=== PATIENT | male | born 1980 | race Caucasian/White ===

== ENCOUNTER → 2016-09-09 | Outpatient (REF) | payer OTHER ==
[2016-09-09 11:24] LABS: MEAN CORPUSCULAR HEMOGLOBIN 29.4 pg (27.0-33.0); MEAN CORPUSCULAR HGB CONC 33.4 g/dl (32.0-36.5); MEAN CORPUSCULAR VOLUME 88.1 fl (80.0-96.0); RED CELL DISTRIBUTION WIDTH 13.2 % (11.5-14.5); WHITE BLOOD COUNT 14.5 K/mm3 (4.0-10.0)
[2016-09-09 11:44] LABS: ALBUMIN 3.3 GM/DL (3.2-5.2); ALBUMIN/GLOBULIN RATIO 0.79 (1.00-1.93); ALKALINE PHOSPHATASE 102 U/L (45-117); ALT/SGPT 29 U/L (12-78); ANION GAP 10 MEQ/L (8-16); AST/SGOT 16 U/L (15-37); BILIRUBIN,TOTAL 0.6 MG/DL (0.2-1.0); BLOOD UREA NITROGEN 18 MG/DL (7-18); CARBON DIOXIDE LEVEL 30 MEQ/L (21-32); CHLORIDE LEVEL 98 MEQ/L (98-107); CHOLESTEROL LEVEL 131 MG/DL (<200); CREATININE FOR GFR 1.33 MG/DL (0.70-1.30); GLOMERULAR FILTRATION RATE > 60.0 (>60); GLUCOSE, FASTING 173 MG/DL (70-105); POTASSIUM SERUM 4.1 MEQ/L (3.5-5.1); SODIUM LEVEL 138 MEQ/L (136-145); TOTAL PROTEIN 7.5 GM/DL (6.4-8.2); TRIGLYCERIDES LEVEL 135 MG/DL (<150)
== END ==
LOC: M SFHCLERA 08:50
PROVIDERS: ATTEND Physician Assistant
DX: I10 Essential (primary) hypertension (principal); E11.9 Type 2 diabetes mellitus without complications; E78.2 Mixed hyperlipidemia

== ENCOUNTER → 2016-11-29 | Outpatient (REF) | payer OTHER ==
[2016-11-29 12:44] LABS: ALBUMIN 3.3 GM/DL (3.2-5.2); ALBUMIN/GLOBULIN RATIO 0.77 (1.00-1.93); ALKALINE PHOSPHATASE 106 U/L (45-117); ALT/SGPT 38 U/L (12-78); ANION GAP 8 MEQ/L (8-16); AST/SGOT 24 U/L (15-37); BILIRUBIN,TOTAL 0.5 MG/DL (0.2-1.0); BLOOD UREA NITROGEN 18 MG/DL (7-18); CALCIUM LEVEL 9.1 MG/DL (8.5-10.1); CARBON DIOXIDE LEVEL 33 MEQ/L (21-32); CHLORIDE LEVEL 98 MEQ/L (98-107); CREATININE FOR GFR 1.37 MG/DL (0.70-1.30); GLOMERULAR FILTRATION RATE > 60.0 (>60); GLUCOSE, FASTING 136 MG/DL (70-105); POTASSIUM SERUM 3.2 MEQ/L (3.5-5.1); SODIUM LEVEL 139 MEQ/L (136-145); TOTAL PROTEIN 7.6 GM/DL (6.4-8.2)
== END ==
LOC: M SFHCLERA 08:10
PROVIDERS: ATTEND Physician Assistant
DX: E11.9 Type 2 diabetes mellitus without complications (principal)

== ENCOUNTER → 2016-12-06 | Outpatient (REF) | payer MEDICARE ==
[~2016-12-06] MED LIST: ATOR1TAB19 PO; CHLO50TA PO; CIPR500T89 PO; DULO1CAP3 PO; FLAG500T PO; GLIP10TA13 PO; LISI-538 PO; METF500T4 PO
[2016-12-06 17:36] LABS: BASO # 0.1 K/mm3 (0.0-0.2); BASO % 0.6 % (0.0-1.0); EOS # 0.6 K/mm3 (0.0-0.50); EOS % 3.8 % (0.0-3.0); LARGE UNSTAINED CELL # 0.4 K/mm3 (0.0-0.4); LARGE UNSTAINED CELL % 2.5 % (0.0-4.0); LYMPH # 3.3 K/mm3 (1.5-4.5); LYMPH % 23.2 % (24.0-44.0); MEAN CORPUSCULAR HEMOGLOBIN 28.9 pg (27.0-33.0); MEAN CORPUSCULAR HGB CONC 32.3 g/dl (32.0-36.5); MEAN CORPUSCULAR VOLUME 89.7 fl (80.0-96.0); MONO # 0.9 K/mm3 (0.0-0.8); MONO % 6.2 % (0.0-5.0); NEUTROPHILS # 9.2 K/mm3 (1.8-7.7); NEUTROPHILS % 63.7 % (36.0-66.0); PLATELET COUNT, AUTOMATED 693 k/mm3 (150-450); WHITE BLOOD COUNT 14.4 K/mm3 (4.0-10.0)
== END ==
LOC: M SFHCLERA 10:33
PROVIDERS: ATTEND Physician Assistant
DX: R55 Syncope and collapse (principal); Z79.84 Long term (current) use of oral hypoglycemic drugs; Z79.899 Other long term (current) drug therapy
CPT/HCPCS: 84443; 85025; G0463

== ENCOUNTER 2016-12-11 21:51 | Inpatient (IN) | payer MEDICARE ==
[~2016-12-11] VITALS: Ht 190.5 cm; Wt 187.0 kg
[2016-12-11] MEDS ORDERED: DULO1CAP3 PO (22:07)
[2016-12-11] MEDS ORDERED: LISI-538 PO (22:07)
[2016-12-11] MEDS ORDERED: METF500T4 PO (22:07)
[2016-12-11] MEDS ORDERED: GLIP10TA13 PO (22:07)
[2016-12-11] MEDS ORDERED: ATOR1TAB19 PO (22:07)
[2016-12-11] MEDS ORDERED: CHLO50TA PO (22:07)
[2016-12-11] MEDS ORDERED: MORPHINE 4 MG/ML 1ML SYRINGE IV ONE (23:30)
[2016-12-11] MEDS ORDERED: NS 1,000 ML IV ONE (23:30)
[2016-12-11] MEDS ORDERED: ONDANSETRON 4MG/2ML VIAL (J2405) IV ONE (23:30)
[2016-12-11 23:39] LABS: BASO # 0.1 K/mm3 (0.0-0.2); BASO % 0.3 % (0.0-1.0); EOS # 0.2 K/mm3 (0.0-0.50); EOS % 0.9 % (0.0-3.0); LARGE UNSTAINED CELL # 0.3 K/mm3 (0.0-0.4); LARGE UNSTAINED CELL % 1.1 % (0.0-4.0); LYMPH # 2.3 K/mm3 (1.5-4.5); LYMPH % 10.3 % (24.0-44.0); MEAN CORPUSCULAR HEMOGLOBIN 28.7 pg (27.0-33.0); MEAN CORPUSCULAR HGB CONC 32.6 g/dl (32.0-36.5); MONO # 0.7 K/mm3 (0.0-0.8); MONO % 2.9 % (0.0-5.0); NEUTROPHILS % 84.5 % (36.0-66.0); PLATELET COUNT, AUTOMATED 795 k/mm3 (150-450); RED CELL DISTRIBUTION WIDTH 13.2 % (11.5-14.5); WHITE BLOOD COUNT 22.5 K/mm3 (4.0-10.0)
[2016-12-11 23:43] LABS: INR 0.96
[2016-12-11 23:59] LABS: ALBUMIN 3.6 GM/DL (3.2-5.2); ALBUMIN/GLOBULIN RATIO 0.69 (1.00-1.93); BILIRUBIN,DIRECT 0.3 MG/DL (0.0-0.2); BILIRUBIN,TOTAL 0.8 MG/DL (0.2-1.0); CALCIUM LEVEL 9.9 MG/DL (8.5-10.1); CREATININE FOR GFR 1.44 MG/DL (0.70-1.30); GLOMERULAR FILTRATION RATE 58.8 (>60); POTASSIUM SERUM 3.7 MEQ/L (3.5-5.1); TOTAL PROTEIN 8.8 GM/DL (6.4-8.2)
[2016-12-12] MEDS ORDERED: ISOVUE-370 76% 100ML VIAL (Q9967) As Ordered ONE (01:01)
--- NOTE | 2016-12-12 02:20 | REPUSA ---
CLINICAL HISTORY: Abdominal pain. TECHNIQUE: Multiple axial, sagittal and coronal CT images were obtained through the abdomen and pelvi s after administration of intravenous contrast material. COMMENTS: The liver is moderately enlarged with decreased attenuation without mass or defect. There is no intra or extrahepatic biliary ductal dilatation. The spleen is normal. The gallbladder is within normal li mits. The pancreas is of normal contour and attenuation characteristics. There is no evidence of adre nal mass. Both kidneys demonstrate prompt and equal nephrograms. The kidneys are normal in size, shape and conf iguration. There is no evidence of renal or ureteral mass. No renal or ureteral calculi are identifie d. There is no hydroureter or hydronephrosis. No evidence for appendicitis. There is moderate large bowel toward thickening. Findings are more pro minent at the level of the hepatic flexure of the colon. Significant narrowing of the lumen of the co harpal is identified a distended with a surrounding nodularity and fat stranding. Mild apparent thickeni ng of the midsigmoid colon. Fluid-filled distended colon. Fluid-filled distended small bowel. Markedl y distended fluid-filled appendix. There is no evidence of abdominal ascites or lymphadenopathy. There is no evidence of intrinsic or extrinsic bladder mass. There is no pelvic ascites or lymphadeno jd. Images of the lung bases show no evidence of pleural or parenchymal mass. There are no pleural effusi ons. The bony structures are free of lytic or blastic lesions. Multilevel degenerative changes are seen in volving the thoracolumbar spine. Scattered calcifications are seen involving the aorta and major bran ches compatible with atherosclerosis. IMPRESSION: Multifocal thickening of the hepatic flexure of the colon and the sigmoid colon. Possible associated partial small bowel obstruction. Fluid-filled dilated bowel loops. Fluid-filled dilated colon. Associated ileus/enterocolitis is considered. No perforation or abscess formation. Fluid-filled distended appendix. Probably secondary to the passage of a retained fluid from the lumen of the colon including appendix. No surrounding inflammatory changes suggest acute appendicitis. Distended gallbladder suggestive of biliary stasis. No associated inflammatory changes of the wall of the gallbladder. Fat containing umbilical hernia without incarceration. Mild bilateral changes of sacroiliitis. Thank you for your kind referral of this patient.
[2016-12-12] MEDS ORDERED: METOCLOPRAMIDE INJ 10MG/2ML VIAL (J2765) IV PRN (02:45)
[2016-12-12] MEDS ORDERED: ACETAMINOPHEN TAB 650MG DOSE (2X325MG) PO PRN (02:45)
[2016-12-12] MEDS: KETOROLAC 30 MG/ML VIAL (J1885) IV PRN ×2 (03:19→20:08)
[2016-12-12] MEDS: ONDANSETRON 4MG/2ML VIAL (J2405) IV PRN ×2 (03:19→10:33)
[2016-12-12] MEDS: LR 1,000 ML IV SCH ×5 (03:20→20:13)
[2016-12-12 04:00] VITALS: BP 119/62
[2016-12-12] MEDS: LISINOPRIL 20 MG TAB PO SCH ×2 (05:34→20:09)
[2016-12-12] MEDS ORDERED: glipiZIDE XL 5 MG TABCR PO SCH ×2 (07:30)
--- NOTE | 2016-12-12 08:21 | REP ---
Chest x-ray: Two views. History: Abdominal pain. . Comparison study: No comparison study . Findings: The lungs are well inflated and free of infiltrate. The pleural angles are sharp. The heart size is normal. Pulmonary vasculature is not increased. No significant bony abnormality is seen. Impression: Negative chest x-ray. Signed by John Mcdonald MD 12/12/2016 08:13 A
[2016-12-12] MEDS ORDERED: DULoxetine 30 MG CAP (CYMBALTA) PO SCH ×2 (09:00)
[2016-12-12] MEDS ORDERED: LISINOPRIL 20 MG TAB PO SCH ×2 (09:00)
[2016-12-12] MEDS: DULoxetine 30 MG CAP (CYMBALTA) PO SCH (09:51)
[2016-12-12] MEDS: glipiZIDE XL 5 MG TABCR PO SCH (09:51)
[2016-12-12 09:54] LABS: MEAN CORPUSCULAR HEMOGLOBIN 29.3 pg (27.0-33.0); MEAN CORPUSCULAR HGB CONC 33.3 g/dl (32.0-36.5); RED CELL DISTRIBUTION WIDTH 13.3 % (11.5-14.5); WHITE BLOOD COUNT 21.4 K/mm3 (4.0-10.0)
[2016-12-12 10:07] LABS: CREATININE FOR GFR 1.42 MG/DL (0.70-1.30); GLOMERULAR FILTRATION RATE 59.7 (>60); POTASSIUM SERUM 3.4 MEQ/L (3.5-5.1)
[2016-12-12] MEDS: metroNIDAZOLE 500 MG in APPROPRIATE DILUENT 1 EA IV SCH ×2 (12:01→20:07)
[2016-12-12] MEDS: CIPROFLOXACIN 400 MG in APPROPRIATE DILUENT 1 EA IV SCH (12:01)
[2016-12-12 14:00] VITALS: BP 131/81
[2016-12-12 18:00] VITALS: BP 121/69
[2016-12-12] MEDS: ENOXAPARIN 40 MG/0.4 ML SYRINGE (J1650) SC SCH (20:07)
--- NOTE | 2016-12-12 21:03 | HPE ---
DATE OF ADMISSION: Admitting diagnosis is abdominal pain with possible intestinal obstruction. HISTORY OF PRESENT ILLNESS: The patient reports that he has had a sensation of abdominal fullness for 3 or 4 days. He felt constipated. He has taken some laxatives and has been having some diarrhea but the pain increased, and he developed some nausea and vomiting. He reported some abdominal cramping when the discomfort first began. He has not noticed any similar episodes previously. He had been eating well before the onset of his illness but has not felt hungry recently and has been limiting himself to some liquids. He has not noticed any rectal bleeding. He denies any fevers or chills. He presented to the emergency department at almost 10 o'clock in the evening on 12/11/2016. He was evaluated with some laboratory studies and had a CT scan of the abdomen and pelvis obtained. A chest x-ray was also done. The CT scan revealed mildly to moderately dilated fluid-filled loops of small bowel as well as moderate distension of the colon, which was also largely fluid-filled. There was no evidence of free air. There did not appear to be significant free fluid. He has a small umbilical hernia. Because of the abdominal pain with distension and fluid-filled loops of bowel, I was consulted. On my review, the CT scan suggests that there may be some narrowing in the sigmoid colon with a degree of obstruction in this area, although I do not see significant pericolonic inflammatory changes. The patient is being placed on observation for monitoring to see if this represents a simple ileus that will resolve or perhaps a more serious colonic obstruction. ALLERGIES: The patient reports an allergy to PENICILLINS. HOME MEDICATIONS INCLUDE: - atorvastatin 10 mg by mouth daily - glipizide 10 mg by mouth every morning - metformin 500 mg by mouth daily with his evening meal - lisinopril 20 mg by mouth daily - duloxetine 60 mg by mouth daily - chlorthalidone 50 mg by mouth daily MEDICAL HISTORY: Significant for; Morbid obesity. He has a history of diabetes mellitus, currently on some oral medications. He has a history of hypertension and hyperlipidemia. SURGICAL HISTORY: Negative. FAMILY HISTORY: Noncontributory. SOCIAL HISTORY: The patient is a nonsmoker and denies significant alcohol intake. He is currently unemployed. REVIEW OF SYSTEMS: He denies any history of chest pain or palpitations. He has no history of seizure or stroke or chronic severe headaches. He denies shortness of breath, cough or wheezing. He denies any melena or hematochezia. He has had no dysuria or hematuria. There is no history of deep vein thrombosis (DVT) or pulmonary embolus. The remainder of the review of systems is unremarkable. PHYSICAL EXAMINATION: Reveals a tall, quite obese man in mild discomfort. The sclerae are anicteric. Skin is warm and dry. Mucous membranes are moist. The neck is supple without mass or bruit. Heart: Exam shows a regular rate and rhythm. Lungs are clear to auscultation. The abdomen is quite obese and broad. He does have some bowel sounds present, though these seem somewhat diminished. There is no tympany to percussion. On palpation, he has some mild direct tenderness in the left upper quadrant and down the left side of the abdomen with some fullness consistent with his dilated fluid-filled bowel. He does have a small, soft, reducible hernia at the top of the umbilicus. This is about a 3 cm wide bulge and is nontender. Extremities show palpable pedal and radial pulses. His laboratory studies reveal a white count of 22.5 with a differential showing 84 neutrophils, 10 lymphocytes and 3 monocytes. His hemoglobin is 16 with a hematocrit of 49 and the platelet count is 795,000. Coagulation studies (Coags) are normal. His chemistry profile shows a sodium of 135, potassium 3.7, chloride 95, CO2 of 29, BUN of 15, creatinine 1.44, glucose of 190. His liver function tests are normal with the exception of slight elevation of alkaline phosphatase to 133. Total protein is 8.8 with an albumin of 3.6. Amylase and lipase are normal. His lactic acid is slightly elevated at 2.6. Urinalysis shows a specific gravity 1.024 with 1+ protein, 1+ bilirubin with 4 white cells and 1 red cell per high-power field. His CT result is noted in the history of the present illness. He had a chest x-ray that showed the lungs to be well inflated without evident infiltrate. 1. Possible colonic obstruction versus ileus. 2. Hypertension. 3. Morbid obesity. 4. Diabetes mellitus. 5. Hyperlipidemia. PLAN: The patient will be placed on observation status and monitored. It is unclear if the irregularity in the sigmoid colon actually represents an area of narrowing or if this just was an area of muscular contraction at the time of the scan. He does appear to have a large amount of fluid backed up in the colon and small bowel. He has had no prior abdominal surgery. The area in the sigmoid could represent an area of diverticulitis, although he denies any fevers or chills and the CT scan does not seem to show significant pericolonic inflammation in this area. However, diverticulitis would fit for his history of 4 days of a feeling of distension and fullness and constipation. The patient will be kept nothing by mouth and will receive IV maintenance hydration. We will repeat his labs in the morning. If there has been no improvement in his abdominal distension with passage of some of his intestinal liquid, then further evaluation or treatment will be undertaken. ERIBERTOD
[2016-12-12 22:00] VITALS: BP 115/65
[2016-12-13] MEDS: CIPROFLOXACIN 400 MG in APPROPRIATE DILUENT 1 EA IV SCH ×2 (00:17→11:43)
[2016-12-13 02:00] VITALS: BP 120/51
[2016-12-13] MEDS: LR 1,000 ML IV SCH (05:06)
[2016-12-13] MEDS: metroNIDAZOLE 500 MG in APPROPRIATE DILUENT 1 EA IV SCH ×3 (05:06→20:16)
[2016-12-13 06:00] VITALS: BP 126/67
[2016-12-13 06:45] LABS: BASO % 0.4 % (0.0-1.0); EOS # 0.9 K/mm3 (0.0-0.50); EOS % 6.6 % (0.0-3.0); LARGE UNSTAINED CELL # 0.3 K/mm3 (0.0-0.4); LARGE UNSTAINED CELL % 2.4 % (0.0-4.0); LYMPH # 2.4 K/mm3 (1.5-4.5); LYMPH % 18.5 % (24.0-44.0); MEAN CORPUSCULAR HEMOGLOBIN 28.8 pg (27.0-33.0); MEAN CORPUSCULAR HGB CONC 32.4 g/dl (32.0-36.5); MEAN CORPUSCULAR VOLUME 88.8 fl (80.0-96.0); MONO # 0.8 K/mm3 (0.0-0.8); MONO % 5.9 % (0.0-5.0); NEUTROPHILS # 8.7 K/mm3 (1.8-7.7); NEUTROPHILS % 66.3 % (36.0-66.0); PLATELET COUNT, AUTOMATED 569 k/mm3 (150-450); RED CELL DISTRIBUTION WIDTH 13.3 % (11.5-14.5); WHITE BLOOD COUNT 13.1 K/mm3 (4.0-10.0)
[2016-12-13 07:05] LABS: ALKALINE PHOSPHATASE 92 U/L (45-117); ALT/SGPT 23 U/L (12-78); AST/SGOT 14 U/L (15-37); BILIRUBIN,TOTAL 0.6 MG/DL (0.2-1.0); BLOOD UREA NITROGEN 18 MG/DL (7-18); CARBON DIOXIDE LEVEL 29 MEQ/L (21-32); CHLORIDE LEVEL 101 MEQ/L (98-107); CREATININE FOR GFR 1.18 MG/DL (0.70-1.30); GLOMERULAR FILTRATION RATE > 60.0 (>60); GLUCOSE, FASTING 149 MG/DL (70-105); POTASSIUM SERUM 2.8 MEQ/L (3.5-5.1)
[2016-12-13 07:20] LABS: ALBUMIN/GLOBULIN RATIO 0.63 (1.00-1.93); ANION GAP 9 MEQ/L (8-16); SODIUM LEVEL 139 MEQ/L (136-145)
[2016-12-13 07:25] LABS: ALBUMIN 2.5 GM/DL (3.2-5.2); CALCIUM LEVEL 7.8 MG/DL (8.5-10.1); TOTAL PROTEIN 6.5 GM/DL (6.4-8.2)
[2016-12-13] MEDS: DULoxetine 30 MG CAP (CYMBALTA) PO SCH (09:02)
[2016-12-13 10:00] VITALS: BP 134/65
[2016-12-13] MEDS: KCL 10MEQ IN 100ML SWI (KRUN) 10 MEQ in APPROPRIATE DILUENT 1 EA IV SCH ×8 (10:33→16:57)
[2016-12-13] MEDS: glipiZIDE XL 5 MG TABCR PO SCH (10:46)
[2016-12-13] MEDS: POTASSIUM CHLORIDE INJ 40 MEQ in LR 1,000 ML IV SCH ×2 (11:43→15:31)
--- NOTE | 2016-12-13 12:34 | REP ---
Supine abdomen two views: Comparison is a lumbosacral spine of 04/01/2016. There are dilated small bowel loops. There are moderately distended colonic loops. The appearance is nonspecific and could represent ileus or obstruction. There are no unusual calcifications. Skeletal structures and soft tissues are unremarkable. Signed by Joseph Dial MD 12/13/2016 12:26 P
[2016-12-13 14:00] VITALS: BP 140/80
[2016-12-13 18:00] VITALS: BP 123/58
[2016-12-13] MEDS: ENOXAPARIN 40 MG/0.4 ML SYRINGE (J1650) SC SCH (18:35)
[2016-12-13] MEDS: LISINOPRIL 20 MG TAB PO SCH (20:17)
[2016-12-13 22:00] VITALS: BP 132/74
[2016-12-14 02:00] VITALS: BP 129/73
[2016-12-14] MEDS: POTASSIUM CHLORIDE INJ 40 MEQ in LR 1,000 ML IV SCH ×3 (03:04→21:40)
[2016-12-14] MEDS: metroNIDAZOLE 500 MG in APPROPRIATE DILUENT 1 EA IV SCH ×3 (04:54→21:32)
[2016-12-14 06:00] VITALS: BP 110/61
[2016-12-14 06:59] LABS: BASO # 0.1 K/mm3 (0.0-0.2); BASO % 0.5 % (0.0-1.0); EOS # 0.8 K/mm3 (0.0-0.50); EOS % 6.7 % (0.0-3.0); LARGE UNSTAINED CELL # 0.3 K/mm3 (0.0-0.4); LARGE UNSTAINED CELL % 2.5 % (0.0-4.0); LYMPH # 2.6 K/mm3 (1.5-4.5); LYMPH % 20.7 % (24.0-44.0); MEAN CORPUSCULAR HGB CONC 32.8 g/dl (32.0-36.5); MEAN CORPUSCULAR VOLUME 88.6 fl (80.0-96.0); MONO # 0.9 K/mm3 (0.0-0.8); MONO % 6.9 % (0.0-5.0); NEUTROPHILS # 7.9 K/mm3 (1.8-7.7); NEUTROPHILS % 62.8 % (36.0-66.0); PLATELET COUNT, AUTOMATED 545 k/mm3 (150-450); RED CELL DISTRIBUTION WIDTH 13.2 % (11.5-14.5); WHITE BLOOD COUNT 12.6 K/mm3 (4.0-10.0)
[2016-12-14 07:19] LABS: ALBUMIN 2.5 GM/DL (3.2-5.2); ALBUMIN/GLOBULIN RATIO 0.71 (1.00-1.93); ALKALINE PHOSPHATASE 95 U/L (45-117); ALT/SGPT 24 U/L (12-78); ANION GAP 8 MEQ/L (8-16); AST/SGOT 16 U/L (15-37); BILIRUBIN,TOTAL 0.3 MG/DL (0.2-1.0); BLOOD UREA NITROGEN 13 MG/DL (7-18); CALCIUM LEVEL 7.9 MG/DL (8.5-10.1); CARBON DIOXIDE LEVEL 31 MEQ/L (21-32); CHLORIDE LEVEL 100 MEQ/L (98-107); CREATININE FOR GFR 1.09 MG/DL (0.70-1.30); GLOMERULAR FILTRATION RATE > 60.0 (>60); GLUCOSE, FASTING 99 MG/DL (70-105); POTASSIUM SERUM 3.3 MEQ/L (3.5-5.1); SODIUM LEVEL 139 MEQ/L (136-145)
[2016-12-14] MEDS: glipiZIDE XL 5 MG TABCR PO SCH (07:30)
[2016-12-14] MEDS: DULoxetine 30 MG CAP (CYMBALTA) PO SCH (08:39)
[2016-12-14] MEDS: CIPROFLOXACIN 400 MG in APPROPRIATE DILUENT 1 EA IV SCH ×4 (11:24→23:13)
[2016-12-14] MEDS: MIRALAX *UNIT DOSE* 17GM PACKET PO SCH ×2 (13:25→21:32)
[2016-12-14] MEDS: DOCUSATE SODIUM 100 MG CAP PO SCH ×2 (13:25→21:32)
[2016-12-14 14:00] VITALS: BP 135/62
[2016-12-14 18:00] VITALS: BP 132/72
[2016-12-14] MEDS: ENOXAPARIN 40 MG/0.4 ML SYRINGE (J1650) SC SCH (18:16)
[2016-12-14 21:32] VITALS: BP 117/92
[2016-12-14] MEDS: LISINOPRIL 20 MG TAB PO SCH (21:32)
[2016-12-14 22:00] VITALS: BP 117/92
[2016-12-15 02:00] VITALS: BP 118/57
[2016-12-15] MEDS: metroNIDAZOLE 500 MG in APPROPRIATE DILUENT 1 EA IV SCH ×2 (05:08→12:39)
[2016-12-15 06:00] VITALS: BP 109/59
[2016-12-15 06:39] LABS: ANION GAP 8 MEQ/L (8-16); BLOOD UREA NITROGEN 9 MG/DL (7-18); CARBON DIOXIDE LEVEL 30 MEQ/L (21-32); CHLORIDE LEVEL 101 MEQ/L (98-107); CREATININE FOR GFR 1.07 MG/DL (0.70-1.30); GLOMERULAR FILTRATION RATE > 60.0 (>60); GLUCOSE, FASTING 102 MG/DL (70-105); POTASSIUM SERUM 3.3 MEQ/L (3.5-5.1); SODIUM LEVEL 139 MEQ/L (136-145)
[2016-12-15] MEDS: DOCUSATE SODIUM 100 MG CAP PO SCH (08:16)
[2016-12-15] MEDS: glipiZIDE XL 5 MG TABCR PO SCH (08:16)
[2016-12-15] MEDS: DULoxetine 30 MG CAP (CYMBALTA) PO SCH (08:16)
[2016-12-15] MEDS: MIRALAX *UNIT DOSE* 17GM PACKET PO SCH (08:16)
[2016-12-15] MEDS: POTASSIUM CHLORIDE INJ 40 MEQ in LR 1,000 ML IV SCH ×2 (10:59→12:39)
[2016-12-15] MEDS: CIPROFLOXACIN 400 MG in APPROPRIATE DILUENT 1 EA IV SCH (11:00)
[2016-12-15] MEDS ORDERED: FLEET ENEMA PR ONE (13:00)
[2016-12-15 14:00] VITALS: BP 124/73
[2016-12-15] MEDS ORDERED: CIPR500T89 PO (17:07)
[2016-12-15] MEDS ORDERED: FLAG500T PO (17:07)
[2016-12-15] MEDS ORDERED: metroNIDAZOLE (FLAGYL) 500 MG TAB PO SCH (22:00)
[2016-12-15] MEDS ORDERED: CIPROFLOXACIN 500 MG TAB PO SCH (23:00)
== END 2016-12-15 17:49 | disposition home or self-care (01) | DRG 389 ==
LOC: M ED 22:45 → M MSPAV 12-12 04:26 → OBSVTOIN 12-12 19:35
PROVIDERS: ADMIT Surgery; ATTEND Surgery
DX: K56.60 Unspecified intestinal obstruction (principal); Z68.43 Body mass index [BMI] 50.0-59.9, adult; K57.92 Diverticulitis of intestine, part unspecified, without perforation or abscess without bleeding; E66.01 Morbid (severe) obesity due to excess calories; Z79.899 Other long term (current) drug therapy; E11.9 Type 2 diabetes mellitus without complications; I10 Essential (primary) hypertension; E78.5 Hyperlipidemia, unspecified

== ENCOUNTER → 2017-03-06 | Outpatient (REF) | payer MEDICARE ==
[~2017-03-06] MED LIST changes: +CIPR-249 PO; +CIPR500T19 PO; -CIPR500T89 PO; -GLIP10TA13 PO; +GLIP10TA6 PO; +GLIP1TAB51 PO; +MIRA3350 PO; +POLY33502 PO; +ZOFR20TA PO; +ZOFR4TAB3 PO
[2017-03-06 11:36] LABS: BASO # 0.1 K/mm3 (0.0-0.2); BASO % 0.9 % (0.0-1.0); EOS # 0.6 K/mm3 (0.0-0.50); EOS % 4.1 % (0.0-3.0); LARGE UNSTAINED CELL # 0.3 K/mm3 (0.0-0.4); LARGE UNSTAINED CELL % 1.8 % (0.0-4.0); LYMPH # 4.9 K/mm3 (1.5-4.5); LYMPH % 31.5 % (24.0-44.0); MEAN CORPUSCULAR HEMOGLOBIN 29.5 pg (27.0-33.0); MEAN CORPUSCULAR HGB CONC 32.9 g/dl (32.0-36.5); MEAN CORPUSCULAR VOLUME 89.7 fl (80.0-96.0); MONO # 0.9 K/mm3 (0.0-0.8); MONO % 6.3 % (0.0-5.0); NEUTROPHILS # 8.2 K/mm3 (1.8-7.7); NEUTROPHILS % 55.4 % (36.0-66.0); PLATELET COUNT, AUTOMATED 691 k/mm3 (150-450); RED CELL DISTRIBUTION WIDTH 13.3 % (11.5-14.5); WHITE BLOOD COUNT 14.9 K/mm3 (4.0-10.0)
== END ==
LOC: M SFHCLERA 08:52
PROVIDERS: ATTEND Physician Assistant
DX: R55 Syncope and collapse (principal)

== ENCOUNTER → 2017-03-07 | Outpatient (REF) | payer MEDICARE | LOC: M SFHCLERA 12:40 | PROVIDERS: ATTEND Physician Assistant | DX: E11.9 Type 2 diabetes mellitus without complications (principal); Z53.8 Procedure and treatment not carried out for other reasons ==

== ENCOUNTER 2017-03-22 22:23 | Inpatient (IN) | payer MEDICARE, MEDICAID ==
[~2017-03-22] VITALS: Ht 190.5 cm; Wt 175.4 kg
[~2017-03-22 22:23] MED LIST changes: -CIPR500T19 PO; -GLIP10TA6 PO; -MIRA3350 PO; -POLY33502 PO; -ZOFR20TA PO; -ZOFR4TAB3 PO
[2017-03-22] MEDS ORDERED: NS 1,000 ML IV ONE (23:15)
[2017-03-22] MEDS ORDERED: METOCLOPRAMIDE INJ 10MG/2ML VIAL (J2765) IV ONE (23:15)
[2017-03-22 23:28] LABS: BASO # 0.1 K/mm3 (0.0-0.2); BASO % 0.6 % (0.0-1.0); EOS # 0.3 K/mm3 (0.0-0.50); EOS % 1.3 % (0.0-3.0); LARGE UNSTAINED CELL # 0.1 K/mm3 (0.0-0.4); LARGE UNSTAINED CELL % 0.5 % (0.0-4.0); LYMPH # 2.4 K/mm3 (1.5-4.5); LYMPH % 9.5 % (24.0-44.0); MEAN CORPUSCULAR HEMOGLOBIN 29.2 pg (27.0-33.0); MEAN CORPUSCULAR HGB CONC 33.7 g/dl (32.0-36.5); MEAN CORPUSCULAR VOLUME 86.7 fl (80.0-96.0); MONO # 0.7 K/mm3 (0.0-0.8); NEUTROPHILS # 20.5 K/mm3 (1.8-7.7); NEUTROPHILS % 85.2 % (36.0-66.0); PLATELET COUNT, AUTOMATED 877 k/mm3 (150-450); RED CELL DISTRIBUTION WIDTH 13.1 % (11.5-14.5); WHITE BLOOD COUNT 24.1 K/mm3 (4.0-10.0)
[2017-03-23 00:01] LABS: ALBUMIN/GLOBULIN RATIO 0.75 (1.00-1.93); BILIRUBIN,DIRECT 0.2 MG/DL (0.0-0.2); BILIRUBIN,TOTAL 0.7 MG/DL (0.2-1.0); CALCIUM LEVEL 10.7 MG/DL (8.5-10.1); CREATININE FOR GFR 1.63 MG/DL (0.70-1.30); GLOMERULAR FILTRATION RATE 50.9 (>60); POTASSIUM SERUM 4.3 MEQ/L (3.5-5.1); TOTAL PROTEIN 9.3 GM/DL (6.4-8.2)
--- NOTE | 2017-03-23 01:30 | REPUSA ---
CLINICAL HISTORY: Abdominal pain. TECHNIQUE: Multiple axial, sagittal and coronal CT images were obtained through the abdomen and pelvi s without administration of oral or IV contrast material. COMMENTS: Comparison is made to the prior exam performed on 12/12/2016. Diffuse heterogeneous thickening of the mid aspect of the sigmoid colon with associated diverticulosi s. Diffusely distended fluid-filled small and large bowels. Diffuse thickening of the cecum and ascending colon. No bowel perforation or pneumatosis intestinalis. Distended fluid-filled appendix. Probably secondary to passage of retained fluid into its lumen from the colon. No associated inflammatory changes of the wall of the appendix. Fat containing umbilical hernia without incarceration. There is no intra or extrahepatic biliary ductal dilatation. The spleen is normal. The gallbladder is within normal limits. The pancreas is of normal contour and attenuation characteristics. There is no evidence of adrenal mass. Left renal lower calyceal group nonobstructing stones with largest measuring 4 mm. The kidneys are normal in size, shape and configuration. No right renal or ureteral calculi are ident ified. There is no hydroureter or hydronephrosis. There is no evidence for appendicitis. There is no evidence of abdominal ascites or lymphadenopathy. There is no evidence of intrinsic or extrinsic bladder mass. There is no pelvic ascites or lymphadeno jd. Images of the lung bases show no evidence of pleural or parenchymal mass. There are no pleural effusi ons. The bony structures are free of lytic or blastic lesions. IMPRESSION: Comparison is made to the prior exam performed on 12/12/2016. Diffuse heterogeneous thickening of the mid aspect of the sigmoid colon with associated diverticulosi s. This needs further evaluation to exclude a neoplastic pathology. Diffusely distended fluid-filled small and large bowels. Diffuse thickening of the cecum and ascending colon. Findings are suggestive of partial obstruction. Probably secondary to the significant narrowing of th e lumen at the level of the mid sigmoid colon. No bowel perforation or pneumatosis intestinalis. Distended fluid-filled appendix. Probably secondary to passage of retained fluid into its lumen from the colon. No associated inflammatory changes of the wall of the appendix. Fat containing umbilical hernia without incarceration. Thank you for your kind referral of this patient.
[2017-03-23] MEDS ORDERED: ONDANSETRON 4MG/2ML VIAL (J2405) IV ONE (03:00)
[2017-03-23] MEDS: NS 1,000 ML IV SCH ×2 (03:06→14:53)
[2017-03-23] MEDS ORDERED: GLUCAGON FOR INJ 1 MG VIAL (J1610) SC PRN (03:15)
[2017-03-23] MEDS ORDERED: DEXTROSE 50% 50 ML SYRINGE IV PRN (03:15)
[2017-03-23] MEDS ORDERED: GLUCOSE 4 GM CHEW TABLET PO PRN (03:15)
[2017-03-23] MEDS: MORPHINE 2 MG/ML 1ML SYRINGE IV PRN ×2 (03:24→15:10)
[2017-03-23 03:50] VITALS: BP 118/72
[2017-03-23] MEDS: metroNIDAZOLE 500 MG in APPROPRIATE DILUENT 1 EA IV SCH ×3 (04:16→20:32)
[2017-03-23] MEDS: CIPROFLOXACIN 400 MG in APPROPRIATE DILUENT 1 EA IV SCH ×2 (05:59→17:40)
[2017-03-23 06:00] VITALS: BP 117/67
[2017-03-23] MEDS: HEPARIN SOD (PORCINE) 5000 UNITS/ML VIAL SC SCH ×3 (06:00→23:59)
[2017-03-23] MEDS: HumaLOG INSULIN (NovoLOG) PER UNIT SC SCH ×5 (06:00→23:51)
--- NOTE | 2017-03-23 07:33 | ED PDOC ---
Post-Departure Follow-Up radiology report faxed to Juaquin Bob Sarah MD Mar 23, 2017 07:33
--- NOTE | 2017-03-23 08:04 | HPE ---
DATE OF ADMISSION: 03/23/2017 PRIMARY CARE PROVIDER: Juaquin Bob PA-C ATTENDING PHYSICIAN: Dr. Clinton CHIEF COMPLAINT: Nausea, vomiting, abdominal pain since yesterday. HISTORY OF PRESENT ILLNESS: The patient is a 36-year-old white male with history of type 2 diabetes, who presented to the emergency room (ER) for above complaints. History is provided by himself, as well as by review of the chart. Per medical record, the patient had been hospitalized here back to 12/12/2016. In that admission, he presented with nausea, vomiting, abdominal pain. He had CT scan of his abdomen and pelvis which demonstrated possible bowel obstruction. He was admitted to Dr. Gaxiola's service. He was treated with intravenous (IV) fluids, antibiotics for three days. His symptoms gradually resolved. He was discharged home on 12/15. Per the patient, he followed with Dr. Gaxiola in the office after his discharge from the hospital. He was doing fine, no other issues. However, since yesterday afternoon , again he developed nausea and vomiting and diarrhea. He stated his pain is located in his lower abdomen as well as left side. The pain is a persistent sharp pain, getting worse gradually. The worst pain is about 9/10 in severity, and says he cannot keep anything down. Denies recent travel history. Denies eating out in a restaurant and denies any fever, chills. Denies blood in stool. In the ER, he underwent CT of abdomen and pelvis scan again, which demonstrates similar finding as compared with last CT scan. He was given medications, IV fluids in the ER. Meanwhile, medicine service was called for admission. REVIEW OF SYSTEMS: Denies fever. No chills. No headache, no blurred vision. No shortness of breath. No coughing. Positive nausea, positive vomiting but no hematemesis. Positive abdominal pain as described in the history of present illness (HPI). Diarrhea but no bloody diarrhea. No hematuria. No tingling, numbness or weakness in the arms or lower extremities. All other systems reviewed and negative. PAST MEDICAL HISTORY: 1. Type 2 diabetes. 2. Hypertension. 3. Dyslipidemia. 4. Morbid obesity. PAST SURGICAL HISTORY: None. ALLERGIES: PENICILLIN. MEDICATIONS: - atorvastatin 10 mg daily - glipizide 10 mg by mouth daily - metformin 500 twice a day - lisinopril 20 mg by mouth daily - chlorthalidone 50 mg by mouth daily - duloxetine 60 mg by mouth daily FAMILY HISTORY: His father has a history of cancer but no family history of inflammatory bowel disease or colitis. PHYSICAL EXAMINATION: VITAL SIGNS: Temperature is 98, heart rate 78, respiratory rate 18, blood pressure 124/73, oxygen saturation 96% on room air. GENERAL: He is awake, alert, and oriented times three. He is not in acute distress. HEENT: Atraumatic. Pupils equal, round, reactive to light. Ears, nose, and throat normal. There is no jaundice in the sclerae. Mouth mucus is dry. NECK: No jugular venous distention (JVD). No bruits. LUNGS: Clear. No crackles, no wheezing. HEART: S1, S2. Regular. No murmur. ABDOMEN: Soft. Bowel sounds positive. Mild tenderness in the lower abdomen but no rebound. LOWER EXTREMITIES: No edema in bilateral lower extremities. SKIN: No rash. NEUROLOGIC: Nonfocal. PSYCHOLOGIC: No acute psychosis. DIAGNOSTIC STUDIES: CBC with differential: WBC 24, hemoglobin and hematocrit 16.4 over 48.7, platelets 877. Sodium 135, potassium 4.3, chloride 98, bicarbonate 23, BUN 12, creatinine 1.6, glucose 220. Liver function tests within normal limits. IMAGING: CT of abdomen and pelvis reviewed. IMPRESSION: 1. Small bowel obstruction and possible colitis. 2. Acute renal injury and dehydration. 3. Type 2 diabetes. 4. Hypertension. 5. Dyslipidemia. 6. Morbid obesity. PLAN: The patient will be admitted to the medical/surgical floor. He is inpatient. Currently, underlying of his small bowel obstruction and colitis is not clear. Questionable inflammatory bowel disease and we will keep him nothing by mouth. We will start intravenous (fluid) as well as IV Cipro and Flagyl. I called Dr. Srinivasan from surgical service for a consultation, and he may need colonoscopy. We will hold his home medications, and we will start him on Accu-Chek for sugar monitoring. DOMINGO
[2017-03-23] MEDS: PANTOPRAZOLE 40MG INJ (PROTONIX) (C9113) IV SCH (09:35)
[2017-03-23] MEDS: ONDANSETRON 4MG/2ML VIAL (J2405) IV PRN ×2 (09:47→17:40)
[2017-03-23 12:49] LABS: MEAN CORPUSCULAR HEMOGLOBIN 29.2 pg (27.0-33.0); MEAN CORPUSCULAR HGB CONC 33.1 g/dl (32.0-36.5); RED CELL DISTRIBUTION WIDTH 13.2 % (11.5-14.5); WHITE BLOOD COUNT 12.2 K/mm3 (4.0-10.0)
[2017-03-23 13:46] LABS: ANION GAP 9 MEQ/L (8-16); BLOOD UREA NITROGEN 18 MG/DL (7-18); CALCIUM LEVEL 8.9 MG/DL (8.5-10.1); CARBON DIOXIDE LEVEL 27 MEQ/L (21-32); CHLORIDE LEVEL 100 MEQ/L (98-107); CREATININE FOR GFR 1.16 MG/DL (0.70-1.30); GLOMERULAR FILTRATION RATE > 60.0 (>60); GLUCOSE, FASTING 120 MG/DL (70-105); POTASSIUM SERUM 3.9 MEQ/L (3.5-5.1); SODIUM LEVEL 136 MEQ/L (136-145)
[2017-03-23 14:00] VITALS: BP 132/70
--- NOTE | 2017-03-23 16:49 | REP ---
REASON: Abdominal pain. History of small bowel obstruction. COMPARISON: 12/13/2016. Once again, there are multiple dilated small bowel loops some of which have air fluid levels within them. Essentially unchanged from the prior exam. There is no free air beneath the diaphragmatic surface of either lung. The accompanying frontal view of the chest is normal. There is no change in the osseous structures. IMPRESSION: SBO, partial versus complete. Followup is suggested. Signed by Jayden Irby DO 03/24/2017 10:50 A
[2017-03-23 22:00] VITALS: BP 139/85
[2017-03-24] MEDS: ONDANSETRON 4MG/2ML VIAL (J2405) IV PRN
[2017-03-24] MEDS: NS 1,000 ML IV SCH ×3 (00:20→19:47)
[2017-03-24] MEDS: MORPHINE 2 MG/ML 1ML SYRINGE IV PRN (00:20)
[2017-03-24] MEDS: metroNIDAZOLE 500 MG in APPROPRIATE DILUENT 1 EA IV SCH ×3 (04:09→20:48)
[2017-03-24] MEDS: CIPROFLOXACIN 400 MG in APPROPRIATE DILUENT 1 EA IV SCH ×2 (05:41→17:10)
[2017-03-24] MEDS: HEPARIN SOD (PORCINE) 5000 UNITS/ML VIAL SC SCH ×3 (05:42→20:48)
[2017-03-24 06:00] VITALS: BP 127/79
[2017-03-24 06:54] LABS: BASO # 0.1 K/mm3 (0.0-0.2); BASO % 0.9 % (0.0-1.0); EOS # 0.5 K/mm3 (0.0-0.50); EOS % 6.1 % (0.0-3.0); LARGE UNSTAINED CELL # 0.2 K/mm3 (0.0-0.4); LARGE UNSTAINED CELL % 2.8 % (0.0-4.0); LYMPH # 2.2 K/mm3 (1.5-4.5); MEAN CORPUSCULAR HEMOGLOBIN 29.1 pg (27.0-33.0); MEAN CORPUSCULAR HGB CONC 32.4 g/dl (32.0-36.5); MEAN CORPUSCULAR VOLUME 89.7 fl (80.0-96.0); MONO # 0.6 K/mm3 (0.0-0.8); MONO % 8.2 % (0.0-5.0); NEUTROPHILS # 4.3 K/mm3 (1.8-7.7); NEUTROPHILS % 55.9 % (36.0-66.0); RED CELL DISTRIBUTION WIDTH 13.3 % (11.5-14.5); WHITE BLOOD COUNT 7.7 K/mm3 (4.0-10.0)
[2017-03-24 07:06] LABS: PLATELET COUNT, AUTOMATED 584 k/mm3 (150-450)
[2017-03-24 07:11] LABS: ALBUMIN/GLOBULIN RATIO 0.67 (1.00-1.93); ALKALINE PHOSPHATASE 79 U/L (45-117); ALT/SGPT 18 U/L (12-78); ANION GAP 9 MEQ/L (8-16); AST/SGOT 13 U/L (15-37); BILIRUBIN,TOTAL 0.3 MG/DL (0.2-1.0); BLOOD UREA NITROGEN 17 MG/DL (7-18); CALCIUM LEVEL 7.9 MG/DL (8.5-10.1); CARBON DIOXIDE LEVEL 26 MEQ/L (21-32); CHLORIDE LEVEL 105 MEQ/L (98-107); CREATININE FOR GFR 1.16 MG/DL (0.70-1.30); GLOMERULAR FILTRATION RATE > 60.0 (>60); GLUCOSE, FASTING 125 MG/DL (70-105); POTASSIUM SERUM 3.7 MEQ/L (3.5-5.1); SODIUM LEVEL 140 MEQ/L (136-145)
--- NOTE | 2017-03-24 07:22 | IPNPDOC ---
Subjective Date Seen The patient was seen on 03/24/17. Subjective Chief Complaint/HPI The patient is a 36-year-old male admitted with a reason for visit of Small Bowel Obstruction. Events since last encounter No further vomiting or diarrhea, abdominal pain improved, no fever or chills, no chest pain or sob , no cough or phlegm Objective Physical Examination General Exam: Positive: Alert, Cooperative, No Acute Distress Eye Exam: Positive: PERRLA, Conjunctiva & lids normal, EOMI, Negative: Sclera icteric ENT Exam: Positive: Atraumatic, Mucous membr. moist/pink, Pharynx Normal Neck Exam: Positive: Supple, Negative: JVD, thyromegaly Chest Exam: Positive: Clear to auscultation, Normal air movement Heart Exam: Positive: Rate Normal, Regular Rhythm, Normal S1, Normal S2, Negative: Murmurs, Rubs Abdomen Exam: Positive: BS Hyperactive, Soft, Negative: Tenderness, Hepatospenomegaly Extremity Exam: Positive: Normal pulses, Negative: Clubbing, Cyanosis, Edema Skin Exam: Positive: Nl turgor and temperature, Negative: Rash, Breakdown Assessment /Plan Problems (1) Gastroenteritis Status: Acute Problem Text: will continue with cipro and flagyl. (2) SBO (small bowel obstruction) Status: Acute Problem Text: will advance diet as per surgery cont ivf and antiemetics. CT abdomen suggestive of sigmoid colonic narrowing however it could be actually spasm also However will need colonoscopy in near future. (3) Morbid obesity Status: Chronic (4) Colonic obstruction Status: Acute Problem Text: seen in ct scans from november 2016 however position seems to shift so actually could also be spasm will need colonoscopy as out patient. (5) Hyperlipidemia Status: Chronic (6) Hypertension Status: Chronic (7) Diabetes Status: Chronic (8) Anxiety and depression Status: Chronic (9) Chronic low back pain Status: Chronic Plan/VTE VTE Prophylaxis Ordered?: Yes VS, I&O, 24H, Fishbone Vital Signs/I&O Vital Signs Date Time Temp Pulse Resp B/P (MAP) Pulse Ox O2 Delivery O2 Flow Rate FiO2 03/24/17 06:00 97.2 75 20 127/79 (95) 95 Room Air I&O- Last 24 Hours up to 6 AM 03/24/17 05:59 Intake Total 2113 ml Output Total 425 ml Balance 1688 ml Laboratory Data 24H LABS Laboratory Tests 2 7/27/17 11:34: Bedside Glucose (Misc Panel) 118H 03/23/17 12:19: Anion Gap 9, Glomerular Filtration Rate > 60.0, Blood Urea Nitrogen 18, Creatinine 1.16, Sodium Level 136, Potassium Level 3.9, Chloride Level 100, Carbon Dioxide Level 27, Calcium Level 8.9# 03/23/17 17:12: Bedside Glucose (Misc Panel) 104 03/23/17 23:46: Bedside Glucose (Misc Panel) 127H 03/24/17 05:57: White Blood Count 7.7, Red Blood Count 4.31, Hemoglobin 12.5L, Hematocrit 38.6L , Mean Corpuscular Volume 89.7, Mean Corpuscular Hemoglobin 29.1, Mean Corpuscular Hemoglobin Concent 32.4, Red Cell Distribution Width 13.3, Platelet Count 584#H, Neutrophils (%) (Auto) 55.9, Lymphocytes (%) (Auto) 26.0, Monocytes (%) (Auto) 8.2H, Eosinophils (%) (Auto) 6.1H, Basophils (%) (Auto) 0.9 , Neutrophils # (Auto) 4.3, Lymphocytes # (Auto) 2.2, Monocytes # (Auto) 0.6, Eosinophils # (Auto) 0.5, Basophils # (Auto) 0.1, Large Unclassified Cells % 2.8 , Large Unclassified Cells # 0.2 CBC/BMP Laboratory Tests 03/23/17 12:19 Red Blood Count 4.82, Mean Corpuscular Volume 88.0, Mean Corpuscular Hemoglobin 29.2, Mean Corpuscular Hemoglobin Concent 33.1, Red Cell Distribution Width 13.2 , Calcium Level 8.9 # 03/24/17 05:57 Red Blood Count 4.31, Mean Corpuscular Volume 89.7, Mean Corpuscular Hemoglobin 29.1, Mean Corpuscular Hemoglobin Concent 32.4, Red Cell Distribution Width 13.3 , Neutrophils (%) (Auto) 55.9, Lymphocytes (%) (Auto) 26.0, Monocytes (%) (Auto ) 8.2 H, Eosinophils (%) (Auto) 6.1 H, Basophils (%) (Auto) 0.9, Neutrophils # ( Auto) 4.3, Lymphocytes # (Auto) 2.2, Monocytes # (Auto) 0.6, Eosinophils # (Auto ) 0.5, Basophils # (Auto) 0.1 AIMEE SNIDER MD Mar 24, 2017 07:22
[2017-03-24 07:28] LABS: ALBUMIN 2.4 GM/DL (3.2-5.2)
[2017-03-24] MEDS: HumaLOG INSULIN (NovoLOG) PER UNIT SC SCH ×3 (07:30→18:20)
[2017-03-24] MEDS: PANTOPRAZOLE 40MG INJ (PROTONIX) (C9113) IV SCH (09:02)
[2017-03-24 14:00] VITALS: BP 130/76
[2017-03-24 22:00] VITALS: BP 126/78
[2017-03-25] MEDS: NS 1,000 ML IV SCH ×2 (03:04→09:57)
[2017-03-25] MEDS: metroNIDAZOLE 500 MG in APPROPRIATE DILUENT 1 EA IV SCH ×2 (04:51→11:34)
[2017-03-25] MEDS: HEPARIN SOD (PORCINE) 5000 UNITS/ML VIAL SC SCH ×3 (05:56→22:45)
[2017-03-25] MEDS: CIPROFLOXACIN 400 MG in APPROPRIATE DILUENT 1 EA IV SCH (05:56)
[2017-03-25] MEDS: HumaLOG INSULIN (NovoLOG) PER UNIT SC SCH ×3 (05:57→12:42)
[2017-03-25 06:00] VITALS: BP 122/69
[2017-03-25] MEDS ORDERED: glipiZIDE 10 MG TAB PO SCH (07:30)
[2017-03-25 09:00] VITALS: BP 136/75
[2017-03-25] MEDS: PANTOPRAZOLE 40MG INJ (PROTONIX) (C9113) IV SCH (09:57)
--- NOTE | 2017-03-25 11:51 | IPNPDOC ---
Subjective Date Seen The patient was seen on 03/25/17. Subjective Chief Complaint/HPI The patient is a 36-year-old male admitted with a reason for visit of Small Bowel Obstruction. Events since last encounter abdominal pain , nausea , vomiting and diarrhea rsolved , had a normal bowel movement this am. No fever or chills, no chest pain or sob Objective Physical Examination General Exam: Positive: Alert, Cooperative, No Acute Distress Eye Exam: Positive: PERRLA, Conjunctiva & lids normal, EOMI, Negative: Sclera icteric ENT Exam: Positive: Atraumatic, Mucous membr. moist/pink, Pharynx Normal Neck Exam: Positive: Supple, Negative: JVD, thyromegaly Chest Exam: Positive: Clear to auscultation, Normal air movement Heart Exam: Positive: Rate Normal, Regular Rhythm, Normal S1, Normal S2, Negative: Murmurs, Rubs Abdomen Exam: Positive: BS Hyperactive, Soft, Negative: Tenderness, Hepatospenomegaly Extremity Exam: Positive: Normal pulses, Negative: Clubbing, Cyanosis, Edema Skin Exam: Positive: Nl turgor and temperature, Negative: Rash, Breakdown Assessment /Plan Problems (1) Gastroenteritis Status: Acute Problem Text: will continue with cipro and flagyl. (2) SBO (small bowel obstruction) Status: Acute Problem Text: will advance diet stop ivf. CT abdomen suggestive of sigmoid colonic narrowing however it could be actually spasm also However will need colonoscopy in near future. (3) Morbid obesity Status: Chronic (4) Colonic obstruction Status: Acute Problem Text: seen in ct scans from november 2016 however position seems to shift so actually could also be spasm will need colonoscopy as out patient. (5) Hyperlipidemia Status: Chronic (6) Hypertension Status: Chronic (7) Diabetes Status: Chronic (8) Anxiety and depression Status: Chronic (9) Chronic low back pain Status: Chronic Plan/VTE VTE Prophylaxis Ordered?: Yes VS, I&O, 24H, Fishbone Vital Signs/I&O Vital Signs Date Time Temp Pulse Resp B/P (MAP) Pulse Ox O2 Delivery O2 Flow Rate FiO2 03/25/17 09:00 98.9 62 14 136/75 (95) 97 Room Air I&O- Last 24 Hours up to 6 AM 03/25/17 06:00 Intake Total 3410 ml Output Total 2750 ml Balance 660 ml AIMEE SNIDER MD Mar 25, 2017 11:51
[2017-03-25 14:00] VITALS: BP 126/75
[2017-03-25] MEDS ORDERED: HumaLOG INSULIN (NovoLOG) PER UNIT SC SCH ×2 (17:30→21:00)
[2017-03-25] MEDS: CIPROFLOXACIN 500 MG TAB PO SCH (18:28)
[2017-03-25 22:00] VITALS: BP 138/71
[2017-03-25] MEDS: metroNIDAZOLE (FLAGYL) 500 MG TAB PO SCH (22:44)
[2017-03-26] MEDS ORDERED: DEXTROSE 50% 50 ML SYRINGE IV STA (02:31)
[2017-03-26] MEDS ORDERED: GLUCAGON FOR INJ 1 MG VIAL (J1610) IM STA (03:52)
[2017-03-26] MEDS ORDERED: D10W 500 ML IV SCH (04:15)
[2017-03-26] MEDS ORDERED: DEXTROSE 10% 1000 ML IV ONE (04:30)
[2017-03-26 05:19] LABS: BASO # 0.1 K/mm3 (0.0-0.2); BASO % 0.5 % (0.0-1.0); EOS # 0.4 K/mm3 (0.0-0.50); EOS % 3.3 % (0.0-3.0); LARGE UNSTAINED CELL # 0.2 K/mm3 (0.0-0.4); LARGE UNSTAINED CELL % 1.9 % (0.0-4.0); LYMPH # 2.4 K/mm3 (1.5-4.5); LYMPH % 19.2 % (24.0-44.0); MEAN CORPUSCULAR HEMOGLOBIN 29.3 pg (27.0-33.0); MEAN CORPUSCULAR HGB CONC 33.3 g/dl (32.0-36.5); MEAN CORPUSCULAR VOLUME 87.8 fl (80.0-96.0); MONO # 0.5 K/mm3 (0.0-0.8); MONO % 4.2 % (0.0-5.0); NEUTROPHILS # 8.1 K/mm3 (1.8-7.7); NEUTROPHILS % 70.9 % (36.0-66.0); PLATELET COUNT, AUTOMATED 558 k/mm3 (150-450); RED CELL DISTRIBUTION WIDTH 13.1 % (11.5-14.5); WHITE BLOOD COUNT 11.4 K/mm3 (4.0-10.0)
[2017-03-26 05:40] LABS: ANION GAP 8 MEQ/L (8-16); BLOOD UREA NITROGEN 7 MG/DL (7-18); CARBON DIOXIDE LEVEL 29 MEQ/L (21-32); CHLORIDE LEVEL 103 MEQ/L (98-107); CREATININE FOR GFR 1.05 MG/DL (0.70-1.30); GLOMERULAR FILTRATION RATE > 60.0 (>60); GLUCOSE, FASTING 107 MG/DL (70-105); SODIUM LEVEL 140 MEQ/L (136-145)
[2017-03-26 06:00] VITALS: BP 123/83
[2017-03-26] MEDS ORDERED: POTASSIUM CHLORIDE 10 MEQ SR TABLET PO ONE (06:45)
[2017-03-26] MEDS: metroNIDAZOLE (FLAGYL) 500 MG TAB PO SCH (06:47)
[2017-03-26] MEDS: CIPROFLOXACIN 500 MG TAB PO SCH (06:47)
[2017-03-26] MEDS: HEPARIN SOD (PORCINE) 5000 UNITS/ML VIAL SC SCH (06:47)
[2017-03-26] MEDS ORDERED: PANTOPRAZOLE 40MG TAB (PROTONIX) PO SCH (09:00)
[2017-03-26] MEDS ORDERED: CIPR-249 PO (09:42)
[2017-03-26] MEDS ORDERED: FLAG500T PO (09:42)
--- NOTE | 2017-03-27 21:38 | DSES ---
DATE OF ADMISSION: 03/23/2017 DATE OF DISCHARGE: 03/26/2017 PRIMARY CARE PROVIDER: Juaquin Bob PA-C CONSULT IN THE HOSPITAL: Dr. Srinivasan DISCHARGE DIAGNOSIS: 1. Acute gastroenteritis. 2. Possible partial small-bowel obstruction. 3. Possible colonic obstruction. 4. Morbid obesity. 5. Hyperlipidemia. 6. Hypertension. 7. Diabetes. 8. Anxiety and depression. 9. Chronic back pain. 10. Acute kidney injury, dehydration, resolved. DISCHARGE MEDICATIONS: - ciprofloxacin 500 mg by mouth twice a day - metronidazole 500 mg every 8 hours - atorvastatin 10 mg by mouth daily - chlorthalidone 50 mg by mouth daily - Cymbalta 60 mg by mouth daily - lisinopril 20 mg by mouth daily - metformin 500 mg by mouth daily HOSPITAL COURSE: This is a 36-year-old male presented to the hospital with nausea, vomiting and diarrhea. The patient had a CAT scan in the emergency room done, which was read as partial small bowel obstruction with narrowing and thickening of the sigmoid colon associated with diverticulosis. The patient was seen by surgeon, Dr. Srinivasan and it was felt that the patient more likely has acute gastritis and narrowing seen in the colon, it is probably spasm. As review of previous CT scan done in November 2016 showed narrowing in a different area, more towards the hepatic flexure that is why he concluded it is most likely spasm rather than a fixed obstruction. However, this is the second episode of gastroenteritis this year, so he needs to be evaluated as an outpatient for colonoscopy for possible underlying inflammatory bowel disease or any other cause. The patient's paper work has been sent to Dr. Villarreal's office and their office will be calling the patient for an appointment. I personally spoke with Dr. Villarreal and he has agreed to see the patient. At present, the patient's symptoms have resolved. The patient is eating regular food. Diarrhea has resolved. I did start the patient on his glipizide yesterday, but he became hypoglycemic overnight, which I feel may be related to ciprofloxacin and the fact that he may not be eating his full meals yet. So, I have instructed the patient to keep on holding the glipizide and metformin, as long as his blood sugars remain below 200 and to start taking them if the sugars are over 200. At present, the patient's vitals are stable, does not have any complaints and functioning at his baseline and is going to be discharged home. PHYSICAL EXAMINATION: VITAL SIGNS: Temperature 97, pulse 68, respiratory rate 18 , blood pressure 122/83, pulse oximetry 99% on room air. GENERAL: The patient awake, alert oriented times three, sitting up in chair in no acute distress. HEENT: Normocephalic, atraumatic. Moist mucous membranes. Anicteric eyes. CHEST: Clear to auscultation. CARDIOVASCULAR: S1, S2 regular. No rub, murmur or gallop. ABDOMEN: Obese, soft, nontender. Bowel sounds present. EXTREMITIES: No edema. LABORATORY DATA: White blood count (WBC) 11.4, hemoglobin 11.9, platelets 558. Sodium 140, potassium 3 replaced, chloride 103, bicarbonate 29, BUN 7, creatine 1.05, glucose 107, calcium 8.0 DISPOSITION: The patient is discharged home in stable condition. DISCHARGE INSTRUCTIONS: The patient is to followup with primary care provider within one week. The patient needs to refer to a programmer analyst for colonoscopy at the earliest. Carbohydrate consistent diet. Activity as tolerated. MTDD
[2017-05-05] MEDS ORDERED: MIRA3350 PO (09:06)
== END 2017-03-26 11:22 | disposition home or self-care (01) | DRG 392 ==
LOC: EDBD 22:23 → M ED 22:23 → M ED INP 03-23 03:06 → M MS5PR 03-23 03:51
PROVIDERS: ADMIT Hospitalist; ATTEND Internal Medicine Nephrology
DX: K52.9 Noninfective gastroenteritis and colitis, unspecified (principal); K56.60 Unspecified intestinal obstruction; N17.9 Acute kidney failure, unspecified; Z68.42 Body mass index [BMI] 45.0-49.9, adult; E66.01 Morbid (severe) obesity due to excess calories; E78.5 Hyperlipidemia, unspecified; I10 Essential (primary) hypertension; E11.9 Type 2 diabetes mellitus without complications; F41.9 Anxiety disorder, unspecified; F32.9 Major depressive disorder, single episode, unspecified; Z79.84 Long term (current) use of oral hypoglycemic drugs; Z79.899 Other long term (current) drug therapy; Z80.9 Family history of malignant neoplasm, unspecified

== ENCOUNTER 2017-04-24 09:00 | Inpatient (IN) | payer MEDICARE ==
[~2017-04-24] VITALS: Ht 185.4 cm; Wt 176.8 kg
[2017-04-24] MEDS: NS 1,000 ML IV SCH ×2 (04:30→18:22)
[2017-04-24] MEDS ORDERED: ONDANSETRON 4MG/2ML VIAL (J2405) IV ONE (09:15)
[2017-04-24] MEDS ORDERED: NS 1,000 ML IV ONE ×3 (09:15→12:30)
[2017-04-24] MEDS ORDERED: POLY33502 PO (09:22)
[2017-04-24] MEDS ORDERED: GLIP10TA6 PO (09:22)
[2017-04-24 10:04] LABS: BASO # 0.1 K/mm3 (0.0-0.2); BASO % 0.4 % (0.0-1.0); EOS # 0.2 K/mm3 (0.0-0.50); EOS % 1.2 % (0.0-3.0); LARGE UNSTAINED CELL # 0.1 K/mm3 (0.0-0.4); LARGE UNSTAINED CELL % 0.7 % (0.0-4.0); LYMPH # 1.6 K/mm3 (1.5-4.5); LYMPH % 8.3 % (24.0-44.0); MEAN CORPUSCULAR HEMOGLOBIN 29.5 pg (27.0-33.0); MEAN CORPUSCULAR HGB CONC 33.8 g/dl (32.0-36.5); MEAN CORPUSCULAR VOLUME 87.4 fl (80.0-96.0); MONO # 0.6 K/mm3 (0.0-0.8); MONO % 3.1 % (0.0-5.0); NEUTROPHILS # 15.9 K/mm3 (1.8-7.7); NEUTROPHILS % 86.3 % (36.0-66.0); PLATELET COUNT, AUTOMATED 701 k/mm3 (150-450); RED CELL DISTRIBUTION WIDTH 13.6 % (11.5-14.5); WHITE BLOOD COUNT 18.4 K/mm3 (4.0-10.0)
[2017-04-24 10:50] LABS: ALBUMIN 3.7 GM/DL (3.2-5.2); ALBUMIN/GLOBULIN RATIO 0.79 (1.00-1.93); ALKALINE PHOSPHATASE 147 U/L (45-117); ALT/SGPT 42 U/L (12-78); AMYLASE 32 U/L (25-115); ANION GAP 8 MEQ/L (8-16); AST/SGOT 25 U/L (15-37); BILIRUBIN,DIRECT 0.3 MG/DL (0.0-0.2); BILIRUBIN,TOTAL 0.7 MG/DL (0.2-1.0); BLOOD UREA NITROGEN 7 MG/DL (7-18); CALCIUM LEVEL 10.5 MG/DL (8.5-10.1); CARBON DIOXIDE LEVEL 25 MEQ/L (21-32); CHLORIDE LEVEL 105 MEQ/L (98-107); CREATININE FOR GFR 1.23 MG/DL (0.70-1.30); GLOMERULAR FILTRATION RATE > 60.0 (>60); GLUCOSE, FASTING 159 MG/DL (70-105); POTASSIUM SERUM 5.1 MEQ/L (3.5-5.1); SODIUM LEVEL 138 MEQ/L (136-145); TOTAL PROTEIN 8.4 GM/DL (6.4-8.2)
[2017-04-24] MEDS ORDERED: ISOVUE-370 76% 100ML VIAL (Q9967) As Ordered ONE (11:24)
[2017-04-24] MEDS ORDERED: metroNIDAZOLE 500 MG in APPROPRIATE DILUENT 1 EA IV ONE (12:00)
[2017-04-24] MEDS ORDERED: CIPROFLOXACIN 400 MG in APPROPRIATE DILUENT 1 EA IV ONE (13:00)
[2017-04-24] MEDS ORDERED: GLIP1TAB51 PO (13:18)
--- NOTE | 2017-04-24 13:44 | REP ---
Chest one-view HISTORY: Vomiting Comparison: 03/23/2017 The lungs are clear. The heart is normal in size. The pulmonary vasculature is normal in appearance. Impression: No acute disease. Signed by Everton Lazcano MD 04/24/2017 01:36 P
--- NOTE | 2017-04-24 14:17 | REP ---
CT ABDOMEN PELVIS WITH IV BUT WITHOUT ORAL CONTRAST: HISTORY: Abdominal pain. Comparison study December 12, 2016. Comparison is also made with March 23, [address] CONTRAST DOSE: 100 mL of Isovue [address] FINDINGS: Preliminary digital personnel clerks supervisor radiograph demonstrates dilated small and large bowel loops. The lung bases are clear. There is evidence of mild fatty infiltration of the liver unchanged. The gallbladder is unremarkable. No pancreatic abnormality is seen. No adrenal lesion is observed. There are scattered mesenteric lymph nodes which are not enlarged. There is a periumbilical hernia transmitting small amounts of abdominal fat. Moderately dilated fluid-filled loops of large and small bowel fill the abdomen producing distension. There is mural thickening affecting the right colon and left colon. A rectal tube has been inserted and is seen within the rectum. There is an 8 cm area of nodular mural thickening in the rectosigmoid colon. The distal end of this has luminal narrowing and mass like nodularity 4.3 x 4.9 cm in diameter. I suspect a colonic neoplasm. No definite adenopathy. Scattered colonic diverticulosis. The appendix is somewhat dilated but not inflamed as before. No free air or abnormal fluid collection is seen. IMPRESSION: 8 cm area of nodular colonic wall thickening and mass effect in the rectosigmoid colon consistent with colonic malignant neoplasm. Enterocolitis picture with mural thickening in the colon and moderate fluid distension of the large bowel and small bowel loops throughout the abdomen again noted. Signed by John Mcdonald MD 04/24/2017 02:49 P
[2017-04-24] MEDS ORDERED: ACETAMINOPHEN TAB 650MG DOSE (2X325MG) PO PRN (15:30)
[2017-04-24] MEDS ORDERED: DEXTROSE 50% 50 ML SYRINGE IV PRN (15:45)
[2017-04-24] MEDS ORDERED: GLUCAGON FOR INJ 1 MG VIAL (J1610) SC PRN (15:45)
[2017-04-24] MEDS ORDERED: GLUCOSE 4 GM CHEW TABLET PO PRN (15:45)
[2017-04-24 16:21] LABS: ANION GAP 10 MEQ/L (8-16); BLOOD UREA NITROGEN 10 MG/DL (7-18); CALCIUM LEVEL 9.5 MG/DL (8.5-10.1); CARBON DIOXIDE LEVEL 24 MEQ/L (21-32); CHLORIDE LEVEL 106 MEQ/L (98-107); CREATININE FOR GFR 1.32 MG/DL (0.70-1.30); GLOMERULAR FILTRATION RATE > 60.0 (>60); GLUCOSE, FASTING 149 MG/DL (70-105); MAGNESIUM LEVEL 2.1 MG/DL (1.8-2.4); POTASSIUM SERUM 4.5 MEQ/L (3.5-5.1); SODIUM LEVEL 140 MEQ/L (136-145)
[2017-04-24] MEDS: DULoxetine 30 MG CAP (CYMBALTA) PO SCH (16:45)
[2017-04-24] MEDS: ATORVASTATIN 10 MG TAB PO SCH (16:45)
[2017-04-24 17:30] VITALS: BP 145/75
--- NOTE | 2017-04-24 17:45 | CR.PDOC ---
[facility] Consultation Consultation DATE OF CONSULTATION: Apr 24, 2017 at 15:15 PRIMARY CARE PHYSICIAN: Juaquin Bob P.A ATTENDING PHYSICIAN: Lauren Martell. REASON FOR CONSULTATION/CHIEF COMPLAINT: Abnormal CT scan abdomen. HISTORY OF PRESENT ILLNESS: 36-year-old male patient with morbid obesity (BMI 51 ), DM, HTN, previously admitted in [facility] twice for abdominal pain and constipation and noted with sigmoid colon thickening and diverticulosis with partial obstruction, was recently seen in GI clinic for evaluation of this abnormal CT scan and planned for elective colonoscopy, But Patient now came to ER for complains of worsening diarrhea with vomiting brownish fluid which stated today morning. Patient also reports multiple loose bowel movements with passing of gas today. Currently patient being admitted to PCU and Gi was consulted. Patient reports his vomiting has subsided but still having watery stools. Patient denies any fever or chills or sick contacts. Patient is having regular food since his last hospital discharge and his last meal was yesterday evening at 9 PM. Off note: Patient had CT scan anbdomen done in this admission reviewed the findings with Radiologist. Home MEDs: Atorvastatin Calcium 10 mg daily Glipizide 10 mg daily Metformin HCL 500 mg daily Lisinopril 20 mg once a day Duloxetine HCL 60 mg daily Chlorthalidone 50 mg every day Fibercon 625 mg 2 daily Probiotic once a day Allergies:Penicillin PMH: As above. No prior EGD or colonoscopy Surgical Hx: None FH: No GI cancers. SH: Denies smoking., Social alcohol. ROS: Const: Denies chills, weight change. ENMT: Denies choking, chronic cough, dysphagia. CV: Denies angina, arrhythmia, pedal edema and palpitations. Resp: Denies difficulty breathing, bronchitis, chronic cough. GI: as above.. : Denies dysuria, hematuria and hesitancy. Musculo: Denies arthralgias, arthritis, Skin: Denies easy bruising, pruritus and rash. Denies nail changes. Neuro: Denies dizziness and headache.. Endocrine: Denies change in appetite, night sweats, polyphagia or polyuria. Exam: Const: No signs of acute distress present and no apparent discomfort. Speech is clear and appropriate. Alert and oriented x 3. Eyes: Conjunctivae pink and moist. Sclerae are anicteric. ENMT: Oral mucosa moist with no thrush and no mucositis. Resp: Lungs are clear bilaterally. Chest is normal to inspection and palpation. CVS: Rate is within normal range. S1 is normal. S2 is normal. No heart murmur appreciated. Extremities: No edema. Abdomen: The abdomen is moderately obese. No visible herniations. No abdominal scars. Positive bowel sounds in all quadrants. Normal to percussion. Abdomen is soft, nontender, and nondistended without guarding, rigidity or rebound tenderness. No abdominal masses palpable. No palpable hepatosplenomegaly. Perineum/Anus/Rectum: exam deferred until colonoscopy. Lymph: No visible or palpable anterior or posterior cervical lymphadenopathy. Skin: No rashes or suspicious lesions. Neuro: Alert and oriented x3. NO focal motor deficits. Good mobility of all extremities. LABORATORY DATA: reviewed. Impression: -- Abnormal CT scan abdomen showing possible sigmoid colon mass vs diverticulosis and thickening of sigmoid colon - with partial obstruction -- DDx - r/o diverticular narrowing of colon vs Colon polyp vs Colon cancer vs IBD with local stricture.. -- Increased WBC ( along with other cell counts) Could be related to hemoconcentration vs r/o sepsis -- Needs septic work up. -- Morbid obesity (BMI 51). Recommendations: -- Keep NPO -- IV hydration monitor fluid status. -- Obtain septic work up including Blood culture, Stool panel, UA and Urine cultures. -- Repeat CBC, BUN / Creatinine and Also obtain Blood type and screen. -- Patient is educated about the prior test results and possible differential diagnoses in detail. -- Will schedule for colonoscopy / flexible sigmoidoscopy tomorrow in OR. The procedure, indications, risks (bleeding, perforation, infection, hypotension, respiratory depression, allergy, need for endotracheal intubation, surgery, or even ), benefits, limitations (e.g., missing a lesion/ incomplete procedure ), and all other alternatives (including no intervention) were explained to the patient who understood and agreed for the procedure. -- Please give Fleet enema once today at 8 PM and then tomorrow at 7 AM and at 3 PM. -- Obtain surgery consult as well. -- Based on the colonoscopy results will need definitive treatment for colonic strenosis. -- Gi will follow. Plan of care discussed with patient and all his questions answered. The above recommendaitons are communicated to primary team admitting the patient. Please call for any further questions. Laboratory Data CBC/BMP Laboratory Tests 04/24/17 09:36 Allergies Coded Allergies: Penicillins (Verified Allergy, Unknown, 12/11/16) Home Medications Scheduled Atorvastatin Calcium (Atorvastatin Calcium) 10 Mg Tab, 10 MG PO DAILY, (Reported ) Chlorthalidone (Chlorthalidone) 50 Mg Tab, 50 MG PO DAILY, (Reported) Duloxetine Hcl (Duloxetine HCl) 60 Mg Cap, 60 MG PO DAILY, (Reported) Glipizide (Glipizide ER) 10 Mg Tab, 10 MG PO DAILY, (Reported) Lisinopril (Lisinopril) 20 Mg Tab, 20 MG PO QPM, (Reported) AFTER DINNER Metformin Hydrochloride (Metformin HCl ER) 500 Mg Tab, 500 MG PO QPM, (Reported) AFTER DINNER Polyethylene Glycol (Polyethylene Glycol 3350) 1 Pow Pow, 1 POW PO DAILY, ( Reported) JULISSA CANCHOLA MD Apr 24, 2017 17:46
[2017-04-24] MEDS ORDERED: FLEET ENEMA PR ONE ×2 (18:00)
[2017-04-24] MEDS: HEPARIN SOD (PORCINE) 5000 UNITS/ML VIAL SC SCH ×2 (18:32→23:55)
[2017-04-24] MEDS: HumaLOG INSULIN (NovoLOG) PER UNIT SC SCH (18:33)
[2017-04-24 20:00] VITALS: BP 134/77
[2017-04-24] MEDS: FLEET ENEMA PR SCH (20:07)
--- NOTE | 2017-04-24 23:50 | HPEPDOC ---
General Date of Admission 04/24/17 Primary Care Physician: LINDA ZULETA PA-C Other Providers Dr. Putnam-GI Attending Physician: JUAN OWENS DO Chief Complaint The patient is a 36-year-old male admitted with a reason for visit of NVD. History of Present Illness 36-year-old male presents to the ED with symptoms that first started with dry heaves and progressed to profuse diarrhea, nausea, and vomiting around 4 AM this morning. Last time he ate was dinner last night without issues. Similar episodes 2 times prior in November and February 2017, but this is most severe--CT's then showed obstruction in colon. Patient recently started seeing Dr. Putnam in outpatient setting for colonic stenosis, and was already scheduled to have colonoscopy with him on 04/25/17. Patient denies any recent travel history, sick contacts, medication changes, eating at restaurants. In the ED, pt presented with optimal vital signs. CT of abd/pelvis was concerning for an 8 cm area mass effect in the rectosigmoid colon consistent with colonic malignant neoplasm, while chest x-ray was negative. Home Medications Scheduled Atorvastatin Calcium (Atorvastatin Calcium) 10 Mg Tab, 10 MG PO DAILY, (Reported ) Chlorthalidone (Chlorthalidone) 50 Mg Tab, 50 MG PO DAILY, (Reported) Duloxetine Hcl (Duloxetine HCl) 60 Mg Cap, 60 MG PO DAILY, (Reported) Glipizide (Glipizide ER) 10 Mg Tab, 10 MG PO DAILY, (Reported) Lisinopril (Lisinopril) 20 Mg Tab, 20 MG PO QPM, (Reported) AFTER DINNER Metformin Hydrochloride (Metformin HCl ER) 500 Mg Tab, 500 MG PO QPM, (Reported) AFTER DINNER Polyethylene Glycol (Miralax) 1 Pow Pow, 17 GM PO DAILY, (Reported) dilute in 8 ounces of water or juice Allergies Coded Allergies: Penicillins (Verified Allergy, Unknown, 05/05/17) Past Medical History Medical History Hyperlipidemia Hypertension Diabetes mellitus type 2, [id number] Morbid obesity Herniated lumbar disks Anxiety Depression Surgical History Denies surgical history Family History Colon cancer-paternal grandmother Obstructive sleep apnea-father Cardiac pacemaker-father Social History FULL CODE Nonsmoker Denies alcohol Denies illicit substances Denies recent travel/sick contacts Lives alone at home in winter, with parents in summer No pets Unemployed, disability Review of Symptoms Other systems Constitutional: Denies fever, fatigue, weight loss Admits expected loss of over 70 pounds in anticipation of lumbar disc herniation surgery Admits chills Eyes: Denies vision changes, eye pain ENT: Denies headaches, dysphagia, ear problems Skin: Denies new rashes, lesions Pulmonary: Denies dyspnea, cough, shortness of breath Cardiovascular: denies chest pain, palpitations, orthopnea, edema, lightheadedness GI: Denies melena, hematochezia, hematemesis Admits nausea, vomiting, diarrhea, abdominal cramps : Denies hematuria, incontinence Musculoskeletal: Denies upper and lower extremity pain, back pain Neurologic: Denies weakness, numbness/tingling, saddle anesthesia Physical Examination General Exam: Positive: Alert, Cooperative, Mild Distress Eye Exam: Positive: EOMI ENT Exam: Positive: Atraumatic Neck Exam: Positive: Supple, Negative: JVD, Lymphadenopathy Chest Exam: Positive: Clear to auscultation, Normal air movement, Negative: Rales, Rhonchi, Wheezing, Diminished Heart Exam: Positive: Other (difficult to auscultate due to body habitus) Abdomen Exam: Positive: Normal bowel sounds, Tenderness (tender to palpation of bilateral lower quadrants), Other (distended. No guarding or rigidity) Extremity Exam: Negative: Edema Skin Exam: Negative: Rash Neuro Exam: Positive: Normal Speech Psych Exam: Positive: Mental status NL, Mood NL, Oriented x 3 Other physical findings Brown, nonbloody stool is noted to be splattered on the floor and dominique and bed. Pt resting in bed with mother in room. Vital Signs Vital Signs Date Time Temp Pulse Resp B/P (MAP) Pulse Ox O2 Delivery O2 Flow Rate FiO2 04/24/17 10:37 04/24/17 10:36 103 22 97 Room Air 04/24/17 09:12 97.2 Laboratory Data Labs 24H Laboratory Tests 2 04/24/17 09:36: White Blood Count 18.4H, Red Blood Count 5.36, Hemoglobin 15.8, Hematocrit 46.9 , Mean Corpuscular Volume 87.4, Mean Corpuscular Hemoglobin 29.5, Mean Corpuscular Hemoglobin Concent 33.8, Red Cell Distribution Width 13.6, Platelet Count 701H, Neutrophils (%) (Auto) 86.3H, Lymphocytes (%) (Auto) 8.3L, Monocytes (%) (Auto) 3.1, Eosinophils (%) (Auto) 1.2, Basophils (%) (Auto) 0.4, Neutrophils # (Auto) 15.9H, Lymphocytes # (Auto) 1.6, Monocytes # (Auto) 0.6, Eosinophils # (Auto) 0.2, Basophils # (Auto) 0.1, Large Unclassified Cells % 0.7 , Large Unclassified Cells # 0.1, Anion Gap 8, Glomerular Filtration Rate > 60.0 , Lactic Acid Level 2.1*H, Calcium Level 10.5H, Aspartate Amino Transf (AST/SGOT ) 25, Alanine Aminotransferase (ALT/SGPT) 42, Alkaline Phosphatase 147H, Total Bilirubin 0.7, Direct Bilirubin 0.3H, Total Protein 8.4H, Albumin 3.7, Albumin/ Globulin Ratio 0.79L, Amylase Level 32, Lipase 97 CBC/BMP Laboratory Tests 04/24/17 09:36 Red Blood Count 5.36, Mean Corpuscular Volume 87.4, Mean Corpuscular Hemoglobin 29.5, Mean Corpuscular Hemoglobin Concent 33.8, Red Cell Distribution Width 13.6 , Neutrophils (%) (Auto) 86.3 H, Lymphocytes (%) (Auto) 8.3 L, Monocytes (%) ( Auto) 3.1, Eosinophils (%) (Auto) 1.2, Basophils (%) (Auto) 0.4, Neutrophils # ( Auto) 15.9 H, Lymphocytes # (Auto) 1.6, Monocytes # (Auto) 0.6, Eosinophils # ( Auto) 0.2, Basophils # (Auto) 0.1 Microbiology Microbiology 04/24/17 Blood Culture, Received Pending 04/24/17 Blood Culture, Received Pending 04/24/17 Gastrointestinal Tract Panel (PCR) - Final, Complete Assessment/Plan Nausea, vomiting, diarrhea likely post-obstructive diarrhea from 8cm mass identified on CT GI and Surgery consulted. Appreciate their input made NPO stool studies pending rectal tube in place strict I's/O's, with attention to electrolytes Leukocytosis, reactive vs colitis will admit to Dr. Owens's Hospitalist service Hayde Hillman started IV hydration started blood cultures pending GI panel pending Lactic acidosis Resolved. Repeat lactate normalized with IV hydration HTN normotensive in ED. Will hold home bp meds Dyslipidemia continue home statin Depression continue home meds Diabetes insulin sliding scale, fingersticks Morbid obesity complicated care DVT prophylaxis Heparin, SCDs, and TEDs Plan / VTE VTE Prophylaxis Ordered?: Yes GME ATTESTATION GME ATTESTATION My preceptor for this patient encounter was physically present in the building during the encounter and was fully available. As needed, all aspects of the patient interview, examination, medical decision making process, and medical care plan development were reviewed and approved by the preceptor. Preceptor is aware and concurs with the plan as stated in the body of this note and will attest to such by his/her cosignature. ATTENDING NOTE I have both independently examined this patient as well as reviewed the H&P. I have discussed in detail with the resident the findings and plan of treatment as documented in the residents note. I will continue to follow the patient and offer further guidance to the patients care as necessary during this hospital stay. MAIA Buckner MD, DO Apr 24, 2017 15:22 RUSLAN HOLLINS MD May 06, 2017 08:48
[2017-04-24] MEDS: metroNIDAZOLE 500 MG in APPROPRIATE DILUENT 1 EA IV SCH (23:56)
[2017-04-24 23:59] VITALS: BP 125/74
[2017-04-25] VITALS (9 sets, daily range): BP systolic 124–152; BP diastolic 60–90
[2017-04-25 00:20] LABS: ANION GAP 8 MEQ/L (8-16); BLOOD UREA NITROGEN 12 MG/DL (7-18); CALCIUM LEVEL 9.1 MG/DL (8.5-10.1); CARBON DIOXIDE LEVEL 26 MEQ/L (21-32); CHLORIDE LEVEL 108 MEQ/L (98-107); CREATININE FOR GFR 1.33 MG/DL (0.70-1.30); GLOMERULAR FILTRATION RATE > 60.0 (>60); GLUCOSE, FASTING 124 MG/DL (70-105); MAGNESIUM LEVEL 2.2 MG/DL (1.8-2.4); SODIUM LEVEL 142 MEQ/L (136-145)
[2017-04-25] MEDS: CIPROFLOXACIN 400 MG in APPROPRIATE DILUENT 1 EA IV SCH ×2 (00:25→12:05)
[2017-04-25] MEDS: HumaLOG INSULIN (NovoLOG) PER UNIT SC SCH ×5 (00:25→23:59)
[2017-04-25 06:11] LABS: MEAN CORPUSCULAR HEMOGLOBIN 29.1 pg (27.0-33.0); MEAN CORPUSCULAR HGB CONC 32.7 g/dl (32.0-36.5); MEAN CORPUSCULAR VOLUME 88.9 fl (80.0-96.0); RED CELL DISTRIBUTION WIDTH 13.6 % (11.5-14.5); WHITE BLOOD COUNT 9.2 K/mm3 (4.0-10.0)
[2017-04-25 06:28] LABS: ALBUMIN 2.6 GM/DL (3.2-5.2); ALBUMIN/GLOBULIN RATIO 0.63 (1.00-1.93); ALKALINE PHOSPHATASE 102 U/L (45-117); ALT/SGPT 29 U/L (12-78); ANION GAP 6 MEQ/L (8-16); AST/SGOT 21 U/L (15-37); BILIRUBIN,TOTAL 0.6 MG/DL (0.2-1.0); BLOOD UREA NITROGEN 11 MG/DL (7-18); CALCIUM LEVEL 8.3 MG/DL (8.5-10.1); CARBON DIOXIDE LEVEL 26 MEQ/L (21-32); CHLORIDE LEVEL 112 MEQ/L (98-107); CREATININE FOR GFR 1.21 MG/DL (0.70-1.30); GLOMERULAR FILTRATION RATE > 60.0 (>60); GLUCOSE, FASTING 106 MG/DL (70-105); POTASSIUM SERUM 4.3 MEQ/L (3.5-5.1); SODIUM LEVEL 144 MEQ/L (136-145); TOTAL PROTEIN 6.7 GM/DL (6.4-8.2)
[2017-04-25] MEDS: HEPARIN SOD (PORCINE) 5000 UNITS/ML VIAL SC SCH ×3 (06:52→21:30)
[2017-04-25] MEDS: metroNIDAZOLE 500 MG in APPROPRIATE DILUENT 1 EA IV SCH ×3 (06:52→22:17)
[2017-04-25] MEDS ORDERED: FLEET ENEMA PR ONE (08:00)
[2017-04-25] MEDS: DULoxetine 30 MG CAP (CYMBALTA) PO SCH (08:05)
[2017-04-25] MEDS: ATORVASTATIN 10 MG TAB PO SCH (08:05)
[2017-04-25] MEDS: FLEET ENEMA PR SCH ×2 (08:05→14:21)
[2017-04-25 08:08] LABS: ANION GAP 9 MEQ/L (8-16); BLOOD UREA NITROGEN 12 MG/DL (7-18); CALCIUM LEVEL 8.3 MG/DL (8.5-10.1); CARBON DIOXIDE LEVEL 25 MEQ/L (21-32); CHLORIDE LEVEL 112 MEQ/L (98-107); CREATININE FOR GFR 1.21 MG/DL (0.70-1.30); GLOMERULAR FILTRATION RATE > 60.0 (>60); GLUCOSE, FASTING 119 MG/DL (70-105); POTASSIUM SERUM 3.7 MEQ/L (3.5-5.1); SODIUM LEVEL 146 MEQ/L (136-145)
[2017-04-25] MEDS ORDERED: ENOXAPARIN 40 MG/0.4 ML SYRINGE (J1650) SC SCH (09:00)
[2017-04-25] MEDS: NS 1,000 ML IV SCH ×3 (10:21→19:00)
--- NOTE | 2017-04-25 11:29 | IPNPDOC ---
Subjective Date Seen The patient was seen on 04/25/17. Subjective Chief Complaint/HPI The patient is a 36-year-old male admitted with a reason for visit of Colonic Obstruction. Pt was seen and examined at bedside. Pt's father was present in the room. No reported events overnight. No acute complaints. Pt states that he has more control over his bowels today and feels better overall compared to yesterday. He had one bowel movement last night and one this morning, both of a loose consistency. No blood was visualized in the stool or urine. Discussed plan of care with pt this morning and he was agreeable. General: Reports: Normal Appetite Constitutional: Denies: Chills, Fever, Night Sweats Pulmonary: Denies: Dyspnea, Cough Cardiovascular: Denies: Chest Pain, Palpitations, Edema, Lt Headedness Gastrointestinal: Reports: Diarrhea, Denies: Nausea, Vomiting, Abdominal Pain, Melena, Hematochezia Genitourinary: Denies: Hematuria Psych: Reports: Mood Normal Objective Physical Examination General Exam: Positive: Alert, Cooperative, No Acute Distress Eye Exam: Positive: EOMI ENT Exam: Positive: Atraumatic Neck Exam: Positive: Supple, Negative: JVD, Lymphadenopathy Chest Exam: Positive: Clear to auscultation, Normal air movement, Negative: Rales, Rhonchi, Wheezing, Diminished Heart Exam: Positive: Normal S1, Normal S2, Other (Difficult to assess due to body habitus ) Abdomen Exam: Positive: Normal bowel sounds, Soft, Other (No guarding or rigidity), Negative: Tenderness Extremity Exam: Positive: Normal pulses, Negative: Edema, Swelling Skin Exam: Negative: Rash Neuro Exam: Positive: Normal Speech Psych Exam: Positive: Mental status NL, Mood NL, Oriented x 3 Assessment /Plan Assessment Nausea, vomiting, diarrhea continue npo for colonoscopy later today with Dr. Putnam n/v resolved. Diarrhea improving per patient. GI and Surgery consulted. Appreciate their input rectal tube was removed last night, and fleet enemas given per GI. stool studies pending continue strict I's/O's, with attention to electrolytes. Vitals continue to be stable likely post-obstructive diarrhea from 8cm mass identified on CT Leukocytosis, reactive vs colitis continue Cipro, Flagyl continue IV hydration blood cultures-negative at 24 hours GI panel negative Lactic acidosis Resolved with IV hydration HTN normotensive in ED. Will hold home bp meds Dyslipidemia continue home statin Depression continue home meds Diabetes insulin sliding scale, fingersticks Morbid obesity complicated care DVT prophylaxis Heparin, SCDs, and TEDs Plan/VTE VTE Prophylaxis Ordered?: Yes VS, I&O, 24H, Fishbone Vital Signs/I&O Vital Signs Date Time Temp Pulse Resp B/P (MAP) Pulse Ox O2 Delivery O2 Flow Rate FiO2 04/25/17 07:30 97.8 71 20 133/80 (97) 99 Room Air I&O- Last 24 Hours up to 6 AM 04/25/17 06:00 Intake Total 1000 ml Output Total 1590 ml Balance -590 ml Laboratory Data 24H LABS Laboratory Tests 2 04/24/17 15:57: Anion Gap 10, Glomerular Filtration Rate > 60.0, Lactic Acid Followup at 4 Hours 2.1*H, Blood Urea Nitrogen 10, Creatinine 1.32H, Sodium Level 140, Potassium Level 4.5, Chloride Level 106, Carbon Dioxide Level 24, Calcium Level 9.5, Magnesium Level 2.1 04/24/17 18:02: 04/24/17 18:05: Bedside Glucose (Misc Panel) 133H 04/24/17 20:19: Urine Appearance CLEAR, Urine Color YELLOW, Urine pH 5.0, Urine Specific Scott 1.050, Urine Protein NEGATIVE, Urine Glucose (UA) NEGATIVE, Urine Ketones NEGATIVE, Urine Urobilinogen 4.0H, Urine Bilirubin NEGATIVE, Urine Leukocyte Esterase NEGATIVE, Urine Blood NEGATIVE, Urine Nitrite NEGATIVE, Urine WBC (Auto) 1, Urine RBC (Auto) 2, Urine Hyaline Casts (Auto) 0, Urine Bacteria (Auto) NEGATIVE, Urine Squamous Epithelial Cells 0, Urine Sperm (Auto) 04/24/17 20:57: Lactic Acid Level 1.6 04/24/17 23:38: Anion Gap 8, Glomerular Filtration Rate > 60.0, Blood Urea Nitrogen 12, Creatinine 1.33H, Sodium Level 142, Potassium Level 4.0, Chloride Level 108H, Carbon Dioxide Level 26, Calcium Level 9.1, Magnesium Level 2.2 04/25/17 05:47: Anion Gap 6L, Glomerular Filtration Rate > 60.0, Blood Urea Nitrogen 11, Creatinine 1.21, Sodium Level 144, Potassium Level 4.3, Chloride Level 112H, Carbon Dioxide Level 26, Calcium Level 8.3L, Magnesium Level 2.0, Aspartate Amino Transf (AST/SGOT) 21, Alanine Aminotransferase (ALT/SGPT) 29, Alkaline Phosphatase 102, Total Bilirubin 0.6, Total Protein 6.7#, Albumin 2.6#L, Albumin /Globulin Ratio 0.63L 04/25/17 07:28: Anion Gap 9, Glomerular Filtration Rate > 60.0, Blood Urea Nitrogen 12, Creatinine 1.21, Sodium Level 146H, Potassium Level 3.7, Chloride Level 112H, Carbon Dioxide Level 25, Calcium Level 8.3L, Magnesium Level 2.0 CBC/BMP Laboratory Tests 04/24/17 15:57 Calcium Level 9.5 04/24/17 23:38 Calcium Level 9.1 04/25/17 05:47 Calcium Level 8.3 L, Red Blood Count 4.53, Mean Corpuscular Volume 88.9, Mean Corpuscular Hemoglobin 29.1, Mean Corpuscular Hemoglobin Concent 32.7, Red Cell Distribution Width 13.6, Aspartate Amino Transf (AST/SGOT) 21, Alanine Aminotransferase (ALT/SGPT) 29, Alkaline Phosphatase 102, Total Bilirubin 0.6, Total Protein 6.7 #, Albumin 2.6 #L 04/25/17 07:28 Calcium Level 8.3 L Microbiology Microbiology 04/24/17 Blood Culture - Preliminary, Resulted No growth after 24 hours . All specim... 04/24/17 Blood Culture - Preliminary, Resulted No growth after 24 hours . All specim... 04/24/17 Gastrointestinal Tract Panel (PCR) - Final, Complete 04/24/17 Urine Culture, Received Pending GME ATTESTATION GME ATTESTATION My preceptor for this patient encounter was physically present in the building during the encounter and was fully available. As needed, all aspects of the patient interview, examination, medical decision making process, and medical care plan development were reviewed and approved by the preceptor. Preceptor is aware and concurs with the plan as stated in the body of this note and will attest to such by his/her cosignature. MAIA MOORE DO Apr 25, 2017 10:43
[2017-04-25 16:02] LABS: ANION GAP 8 MEQ/L (8-16); BLOOD UREA NITROGEN 11 MG/DL (7-18); CALCIUM LEVEL 8.7 MG/DL (8.5-10.1); CARBON DIOXIDE LEVEL 24 MEQ/L (21-32); CHLORIDE LEVEL 113 MEQ/L (98-107); CREATININE FOR GFR 1.16 MG/DL (0.70-1.30); GLOMERULAR FILTRATION RATE > 60.0 (>60); GLUCOSE, FASTING 115 MG/DL (70-105); POTASSIUM SERUM 4.1 MEQ/L (3.5-5.1); SODIUM LEVEL 145 MEQ/L (136-145)
[2017-04-25] MEDS ORDERED: MIDAZOLAM INJ 2 MG/2 ML VIAL (J2250) As Ordered ONE (18:35)
[2017-04-25] MEDS ORDERED: fentaNYL 100 MCG/2 ML INJECTION (J3010) As Ordered ONE (19:09)
[2017-04-25] MEDS ORDERED: ISOVUE-300 61% 50ML VIAL (Q9967) As Ordered ONE (19:10)
[2017-04-25] MEDS ORDERED: LR 1,000 ML IV SCH (19:45)
--- NOTE | 2017-04-25 19:56 | REP ---
Portable abdomen: 04/25/2017. Four images from C-arm fluoroscopy provided to the ordering physician. Colonoscope is visible on the four images. Due to body habitus considerations and limitation of C-arm fluoroscopy in that situation, these are of nondiagnostic quality. They are available for review on the PACS. Fluoroscopy time 21 seconds. Signed by Ta Cunningham MD 04/26/2017 04:54 P
--- NOTE | 2017-04-25 20:03 | ROOR ---
Patient Name: Gopi Suggs Procedure Date: 04/25/2017 6:43 PM Date of : 1980 Age: 36 Room: Main OR Gender: Male Note Status: Finalized Procedure: Colonoscopy Indications: Abnormal CT of the GI tract Providers: Durga Putnam MD Referring MD: 2. Inpatient 2. Inpatient Requesting Provider: Medicines: Monitored Anesthesia Care Complications: No immediate complications. Procedure: Pre-Anesthesia Assessment: - Prior to the procedure, a History and Physical was performed, and patient medications and allergies were reviewed. The patient is competent. The risks and benefits of the procedure and the sedation options and risks were discussed with the patient. All questions were answered and informed consent was obtained. Patient identification and proposed procedure were verified by the physician, the nurse and the anesthesiologist in the procedure room. Mental Status Examination: alert and oriented. Respiratory Examination: clear to auscultation. CV Examination: normal. Prophylactic Antibiotics: The patient does not require prophylactic antibiotics. Prior Anticoagulants: The patient has taken no previous anticoagulant or antiplatelet agents. ASA Grade Assessment: III - A patient with severe systemic disease. After reviewing the risks and benefits, the patient was deemed in satisfactory condition to undergo the procedure. The anesthesia plan was to use monitored anesthesia care (MAC). Immediately prior to administration of medications, the patient was re-assessed for adequacy to receive sedatives. The heart rate, respiratory rate, oxygen saturations, blood pressure, adequacy of pulmonary ventilation, and response to care were monitored throughout the procedure. The physical status of the patient was re-assessed after the procedure. The Colonoscope was introduced through the anus with the intention of advancing to the cecum. The scope was advanced to the descending colon before the procedure was aborted. Medications were given. The colonoscopy was performed without difficulty. The patient tolerated the procedure well. The quality of the bowel preparation was poor. The rectum was photographed. Scope insertion time was 5 minutes. Scope withdrawal time was 15 minutes. Findings: The perianal and digital rectal examinations were normal. Multiple small and large-mouthed diverticula were found from sigmoid to descending colon. There was narrowing of the colon in association with the diverticular opening. Erythema was seen in association with the diverticular opening. There was no evidence of diverticular bleeding. An area of significantly congested mucosa was found in the sigmoid colon. Biopsies were taken with a cold forceps for histology. Verification of patient identification for the specimen was done by the physician and nurse using the patient's name, date and medical record number. Estimated blood loss was minimal. A benign-appearing, intrinsic moderate stenosis measuring 8 cm (in length) was found in the sigmoid colon and was traversed. The retroflexed view of the distal rectum and anal verge was normal and showed no anal or rectal abnormalities. Impression: - Preparation of the colon was poor. - Severe diverticulosis from sigmoid to descending colon. There was narrowing of the colon in association with the diverticular opening. Erythema was seen in association with the diverticular opening. There was no evidence of diverticular bleeding. Possible diverticulitis. - Congested mucosa in the sigmoid colon. Biopsied. - Stricture in the sigmoid colon - easility traversed using a regular colonoscope. Intraprocedural fluoroscopy done with injection of 100 ml of contrast proximal to the stenosis and noted adequate passage of the contrast beyond the stricture. - The distal rectum and anal verge are normal on retroflexion view. Recommendation: - The signs and symptoms of potential delayed complications were discussed with the patient. - Patient has a contact number available for emergencies. - Return to normal activities tomorrow. - [facility] to [facility] care. - Chopped diet and pureed diet. - Use broad spectrum antibiotics (Ciprofloxacin and metronidazole) for 10 days. - Continue present medications. - Await pathology results. - Repeat colonoscopy date to be determined after pending pathology results are reviewed because the examination was incomplete. - Return to GI office in 2 weeks. - Return to primary care physician. Durga Putnam MD Durga Putnam MD 04/25/2017 8:03:38 PM This report has been signed electronically. Number of Addenda: 0 Note Initiated On: 04/25/2017 6:43 PM Estimated Blood Loss: Estimated blood loss was minimal.
[2017-04-25] MEDS: ONDANSETRON 4MG/2ML VIAL (J2405) IV PRN (21:30)
[2017-04-26] VITALS (7 sets, daily range): BP systolic 134–162; BP diastolic 86–93
[2017-04-26 00:21] LABS: ANION GAP 7 MEQ/L (8-16); BLOOD UREA NITROGEN 10 MG/DL (7-18); CALCIUM LEVEL 8.8 MG/DL (8.5-10.1); CARBON DIOXIDE LEVEL 25 MEQ/L (21-32); CHLORIDE LEVEL 111 MEQ/L (98-107); CREATININE FOR GFR 1.11 MG/DL (0.70-1.30); GLOMERULAR FILTRATION RATE > 60.0 (>60); GLUCOSE, FASTING 118 MG/DL (70-105); MAGNESIUM LEVEL 2.1 MG/DL (1.8-2.4); POTASSIUM SERUM 3.8 MEQ/L (3.5-5.1); SODIUM LEVEL 143 MEQ/L (136-145)
[2017-04-26] MEDS: CIPROFLOXACIN 400 MG in APPROPRIATE DILUENT 1 EA IV SCH ×2 (01:01→12:26)
[2017-04-26] MEDS: ONDANSETRON 4MG/2ML VIAL (J2405) IV PRN ×3 (03:41→18:24)
[2017-04-26] MEDS: NS 1,000 ML IV SCH ×4 (04:50→22:51)
[2017-04-26] MEDS: HumaLOG INSULIN (NovoLOG) PER UNIT SC SCH ×3 (06:00→17:38)
[2017-04-26] MEDS: metroNIDAZOLE 500 MG in APPROPRIATE DILUENT 1 EA IV SCH ×3 (06:37→22:50)
[2017-04-26] MEDS: HEPARIN SOD (PORCINE) 5000 UNITS/ML VIAL SC SCH ×3 (06:37→22:49)
[2017-04-26 07:32] LABS: BASO # 0.1 K/mm3 (0.0-0.2); BASO % 0.6 % (0.0-1.0); EOS # 0.2 K/mm3 (0.0-0.50); EOS % 1.6 % (0.0-3.0); LARGE UNSTAINED CELL # 0.2 K/mm3 (0.0-0.4); LYMPH % 18.8 % (24.0-44.0); MEAN CORPUSCULAR HEMOGLOBIN 29.3 pg (27.0-33.0); MEAN CORPUSCULAR HGB CONC 32.5 g/dl (32.0-36.5); MEAN CORPUSCULAR VOLUME 90.3 fl (80.0-96.0); MONO # 0.5 K/mm3 (0.0-0.8); MONO % 5.2 % (0.0-5.0); NEUTROPHILS # 7.1 K/mm3 (1.8-7.7); NEUTROPHILS % 71.7 % (36.0-66.0); PLATELET COUNT, AUTOMATED 444 k/mm3 (150-450); RED CELL DISTRIBUTION WIDTH 13.7 % (11.5-14.5); WHITE BLOOD COUNT 9.8 K/mm3 (4.0-10.0)
[2017-04-26 07:46] LABS: ALBUMIN 2.6 GM/DL (3.2-5.2); ALBUMIN/GLOBULIN RATIO 0.79 (1.00-1.93); ALKALINE PHOSPHATASE 95 U/L (45-117); ALT/SGPT 23 U/L (12-78); ANION GAP 9 MEQ/L (8-16); AST/SGOT 16 U/L (15-37); BILIRUBIN,TOTAL 0.3 MG/DL (0.2-1.0); BLOOD UREA NITROGEN 9 MG/DL (7-18); CALCIUM LEVEL 8.7 MG/DL (8.5-10.1); CARBON DIOXIDE LEVEL 22 MEQ/L (21-32); CHLORIDE LEVEL 113 MEQ/L (98-107); CREATININE FOR GFR 0.91 MG/DL (0.70-1.30); GLOMERULAR FILTRATION RATE > 60.0 (>60); GLUCOSE, FASTING 107 MG/DL (70-105); POTASSIUM SERUM 4.4 MEQ/L (3.5-5.1); SODIUM LEVEL 144 MEQ/L (136-145); TOTAL PROTEIN 5.9 GM/DL (6.4-8.2)
--- NOTE | 2017-04-26 08:25 | CR.PDOC ---
General Surgery Consultation Date of Consultation 04/26/17 History and Physical CONSULT REPORT FOR: Hospitalist service REASON FOR CONSULTATION: Possible colon obstruction/mass/stricture HISTORY OF PRESENT ILLNESS: Patient is a morbidly obese 36-year-old male who looking back on his medical records has had 2 admissions for what appears like transient bowel obstruction. He was admitted in November for possible small bowel, colon obstruction when he presented with nausea, vomiting, diarrhea. This resolved with nonoperative therapy at that time. He reports he felt well in the intervening period. He was readmitted back in February with similar episodes of nausea vomiting and diarrhea and again with nonoperative treatment is improved. He was scheduled to follow-up with Dr. Putnam for outpatient colonoscopy. Patient reports Monday morning had nausea, vomiting, explosive diarrhea prompting return to the emergency room. He was subsequently readmitted under the hospitalist service. Dr. Putnam saw the patient and he performed a flexible sigmoidoscopy yesterday. Results of the procedure was reviewed. This shows a stricture at the sigmoid: Area probably secondary to diverticulosis. PA with PAST MEDICAL HISTORY: Hyperlipidemia Hypertension Diabetes mellitus type 2, [id number] Morbid obesity Herniated lumbar disks Anxiety Depression PAST SURGICAL HISTORY: INCLUDES: 1. None. ALLERGIES: Please see below. FAMILY HISTORY: Denies any family history for inflammatory bowel disease, colorectal malignancy. HOME MEDICATIONS: Please see below. REVIEW OF SYSTEMS: GENERAL: Denies fevers or chills. He has voluntarily lost a small amount of weight and harvesting 10-20 pounds with better diet.. HEENT: Denies blurred vision and double vision. Denies ear symptoms. Denies hoarseness. NECK: Denies any neck pain]. CARDIOVASCULAR: Denies chest pain and palpitations. MUSCULOSKELETAL: Denies arthralgias, back pain and thrombophlebitis. SKIN: Denies rash. NEUROLOGIC: Denies headache, stroke and transient ischemic attack. PSYCHIATRIC: Denies anxiety and depression. ENDOCRINE: Denies thyroid disease. HEMATOLOGY/ONCOLOGY: Denies bleeding or clotting disorder. HEART: Denies any chest pains, palpitations, paroxysmal dyspnea, orthopnea. PULMONARY: Denies chronic cough, dyspnea and wheezing. GASTROINTESTINAL: See HPI. GENITOURINARY: Denies dysuria, frequency, hematuria and nocturia. ENDOCRINE: Patient is diabetic controlled on oral hypoglycemics not requiring insulin. Denies any polydipsia, polyphagia or polyuria. INFECTIOUS: Denies any recent upper respiratory tract infection, UTI, need for use of antibiotics. NUTRITION: Reports good appetite. PHYSICAL EXAMINATION: VITALS SIGNS: Please see below. GENERAL APPEARANCE:Patient seen, laying in bed, awake, alert, and oriented. Comfortable, in no acute distress. SKIN: Warm and moist. HEENT: Normocephalic, atraumatic. [place] palpebral conjunctiva, anicteric sclerae. Lips and mucosa appear moist. NECK: Supple, no thyromegaly. No obvious jugular venous distention. LUNGS: Clear to auscultation bilaterally. No wheezing appreciated. HEART: No chest wall abnormalities. Regular rate and rhythm with no murmurs appreciated. ABDOMEN: Abdomen is , obese, moderately rounded soft, moderately distended, tympanitic to percussion. Minimal tenderness over the left lower quadrant area with no rebound or guarding . No hepatosplenomegaly. No umbilical or groin herniations. No masses appreciated on palpation EXTREMITIES: Extremities have no deformities. No edema identified ANCILLARIES: . LABORATORY DATA: Please see below. IMAGING STUDIES: . IMPRESSION AND PLAN: Colonic stricture secondary to chronic diverticulosis with chronic inflammation/ diverticulitis. Biopsies of the area is pending.I discussed the results with him , family was present at the bedside during my discussion with him. If he is able to have bowel function, I would prefer that Dr. Putnam repeat a full colonoscopy to clear the rest of the colon with a better bowel prep and this probably can be done as an outpatient.. I think he has a symptomatic colonic stricture from diverticulosis and he will need surgery to resect that portion of the colon.. If he is not able to have bowel function and remains obstructed, he will need an urgent surgery and this may require placement of a temporary colostomy which is severely distressed the patient upon knowing this. I will await the results of the biopsy and see how he does the next 3 days to see if we need to do anything urgently or we have a chance to redo the colonoscopy. Vital Signs Vital Signs Date Time Temp Pulse Resp B/P (MAP) Pulse Ox O2 Delivery O2 Flow Rate FiO2 04/26/17 06:00 97.6 72 18 137/88 (104) 98 Room Air I&Os I&O- Last 24 Hours up to 6 AM 04/26/17 06:00 Intake Total 2750 ml Output Total 300 ml Balance 2450 ml Laboratory Data Labs 24H Laboratory Tests 2 04/25/17 15:13: Anion Gap 8, Glomerular Filtration Rate > 60.0, Blood Urea Nitrogen 11, Creatinine 1.16, Sodium Level 145, Potassium Level 4.1, Chloride Level 113H, Carbon Dioxide Level 24, Calcium Level 8.7, Magnesium Level 2.0 04/25/17 23:25: Anion Gap 7L, Glomerular Filtration Rate > 60.0, Blood Urea Nitrogen 10, Creatinine 1.11, Sodium Level 143, Potassium Level 3.8, Chloride Level 111H, Carbon Dioxide Level 25, Calcium Level 8.8, Magnesium Level 2.1 04/26/17 06:30: Bedside Glucose (Misc Panel) 100 04/26/17 07:00: Anion Gap 9, Glomerular Filtration Rate > 60.0, Blood Urea Nitrogen 9, Creatinine 0.91, Sodium Level 144, Potassium Level 4.4, Chloride Level 113H, Carbon Dioxide Level 22, Calcium Level 8.7, Magnesium Level 2.0, White Blood Count 9.8, Red Blood Count 4.27L, Hemoglobin 12.5L, Hematocrit 38.6L, Mean Corpuscular Volume 90.3, Mean Corpuscular Hemoglobin 29.3, Mean Corpuscular Hemoglobin Concent 32.5, Red Cell Distribution Width 13.7, Platelet Count 444, Neutrophils (%) (Auto) 71.7H, Lymphocytes (%) (Auto) 18.8L, Monocytes (%) (Auto ) 5.2H, Eosinophils (%) (Auto) 1.6, Basophils (%) (Auto) 0.6, Neutrophils # ( Auto) 7.1, Lymphocytes # (Auto) 2.0, Monocytes # (Auto) 0.5, Eosinophils # (Auto ) 0.2, Basophils # (Auto) 0.1, Large Unclassified Cells % 2.0, Large Unclassified Cells # 0.2, Aspartate Amino Transf (AST/SGOT) 16, Alanine Aminotransferase (ALT/SGPT) 23, Alkaline Phosphatase 95, Total Bilirubin 0.3, Total Protein 5.9L, Albumin 2.6L, C-Reactive Protein, Quantitative 1.28H, Albumin/Globulin Ratio 0.79L CBC/BMP Laboratory Tests 04/25/17 15:13 Calcium Level 8.7 04/25/17 23:25 Calcium Level 8.8 04/26/17 07:00 Calcium Level 8.7, Red Blood Count 4.27 L, Mean Corpuscular Volume 90.3, Mean Corpuscular Hemoglobin 29.3, Mean Corpuscular Hemoglobin Concent 32.5, Red Cell Distribution Width 13.7, Neutrophils (%) (Auto) 71.7 H, Lymphocytes (%) (Auto) 18.8 L, Monocytes (%) (Auto) 5.2 H, Eosinophils (%) (Auto) 1.6, Basophils (%) ( Auto) 0.6, Neutrophils # (Auto) 7.1, Lymphocytes # (Auto) 2.0, Monocytes # (Auto ) 0.5, Eosinophils # (Auto) 0.2, Basophils # (Auto) 0.1, Aspartate Amino Transf (AST/SGOT) 16, Alanine Aminotransferase (ALT/SGPT) 23, Alkaline Phosphatase 95, Total Bilirubin 0.3, Total Protein 5.9 L, Albumin 2.6 L Microbiology Microbiology 04/24/17 Blood Culture - Preliminary, Resulted No growth after 24 hours . All specim... 04/24/17 Blood Culture - Preliminary, Resulted No growth after 24 hours . All specim... 04/24/17 Gastrointestinal Tract Panel (PCR) - Final, Complete 04/24/17 Urine Culture - Final, Complete Home Medications Scheduled Atorvastatin Calcium (Atorvastatin Calcium) 10 Mg Tab, 10 MG PO DAILY, (Reported ) Chlorthalidone (Chlorthalidone) 50 Mg Tab, 50 MG PO DAILY, (Reported) Duloxetine Hcl (Duloxetine HCl) 60 Mg Cap, 60 MG PO DAILY, (Reported) Glipizide (Glipizide ER) 10 Mg Tab, 10 MG PO DAILY, (Reported) Lisinopril (Lisinopril) 20 Mg Tab, 20 MG PO QPM, (Reported) AFTER DINNER Metformin Hydrochloride (Metformin HCl ER) 500 Mg Tab, 500 MG PO QPM, (Reported) AFTER DINNER Polyethylene Glycol (Miralax) 1 Pow Pow, 17 GM PO DAILY, (Reported) dilute in 8 ounces of water or juice Allergies Coded Allergies: Penicillins (Verified Allergy, Unknown, 05/05/17) JOHNY RUELAS MD Apr 26, 2017 08:25
[2017-04-26 09:16] LABS: ERYTHROCYTE SEDIMENTATION RATE 30 mm/hr (0-15)
--- NOTE | 2017-04-26 10:32 | IPNPDOC ---
Subjective Date Seen The patient was seen on 04/26/17. Subjective Chief Complaint/HPI The patient is a 36-year-old male admitted with a reason for visit of Colonic Obstruction. Pt was seen and examined at bedside. Pt's father and mother were present in the room. Pt is s/p colonoscopy from yesterday. Pt states that he is in general discomfort and did not sleep well last night. Pt states that he has had one small, non-bloody bowel movement this morning and has been passing gas. Pt has a complaint of nausea with one episode of clear vomit this morning after drinking lanny bartolome. Pt has been able to ambulate around his bed. Pt denies abdominal pain. No reported events overnight. General: Reports: Normal Appetite, Denies: Chills, Night Sweats Constitutional: Denies: Chills, Fever ENT: Denies: Head Aches, Dysphagia Pulmonary: Denies: Cough Cardiovascular: Denies: Chest Pain, Lt Headedness Gastrointestinal: Reports: Nausea, Vomiting, Diarrhea, Denies: Abdominal Pain, Melena, Hematochezia Genitourinary: Denies: Incontinence, Hematuria Neurological: Denies: Numbness Psych: Reports: Mood Normal Objective Physical Examination General Exam: Positive: Alert, Cooperative, Mild Distress Eye Exam: Positive: EOMI ENT Exam: Positive: Atraumatic, Mucous membr. moist/pink Neck Exam: Positive: Supple, Negative: Lymphadenopathy Chest Exam: Positive: Clear to auscultation, Normal air movement, Negative: Rales, Rhonchi, Wheezing Heart Exam: Positive: Rate Normal, Normal S1, Normal S2 Abdomen Exam: Positive: Normal bowel sounds, Soft, Negative: Tenderness Extremity Exam: Positive: Normal pulses, Negative: Cyanosis, Edema Skin Exam: Negative: Rash Neuro Exam: Positive: Normal Speech Psych Exam: Positive: Mental status NL, Mood NL, Oriented x 3 Assessment /Plan Assessment N,V,D s/p colonoscopy yesterday. Appreciate Dr. Putnam's input. Pathology results pending surgery consulted. Appreciate Dr. Montelongo's input Francesco PRN nausea Stool studies - negative Continue strict I's/O's with attention to electrolytes Vitals stable Will advance diet to clear liquids Elevated CRP likely reactive from scope procedure Leukocytosis, resolved Continue Cipro Flagyl for possible diverticulitis noted on colonoscopy report Continue IV hydration Blood cultures - negative at 48 hours GI panel negative HTN Continues to be normotensive. Continue holding home BP meds. Dyslipidemia Continue home statin Depression Continue home medication Diabetes Insulin sliding scale, fingersticks Morbid obesity Complicated care DVT prophylaxis Heparin Plan/VTE VTE Prophylaxis Ordered?: Yes VS, I&O, 24H, Fishbone Vital Signs/I&O Vital Signs Date Time Temp Pulse Resp B/P (MAP) Pulse Ox O2 Delivery O2 Flow Rate FiO2 04/26/17 06:00 97.6 72 18 137/88 (104) 98 Room Air I&O- Last 24 Hours up to 6 AM 04/26/17 06:00 Intake Total 2750 ml Output Total 300 ml Balance 2450 ml Laboratory Data 24H LABS Laboratory Tests 2 04/25/17 15:13: Anion Gap 8, Glomerular Filtration Rate > 60.0, Blood Urea Nitrogen 11, Creatinine 1.16, Sodium Level 145, Potassium Level 4.1, Chloride Level 113H, Carbon Dioxide Level 24, Calcium Level 8.7, Magnesium Level 2.0 04/25/17 23:25: Anion Gap 7L, Glomerular Filtration Rate > 60.0, Blood Urea Nitrogen 10, Creatinine 1.11, Sodium Level 143, Potassium Level 3.8, Chloride Level 111H, Carbon Dioxide Level 25, Calcium Level 8.8, Magnesium Level 2.1 04/26/17 06:30: Bedside Glucose (Misc Panel) 100 04/26/17 07:00: Anion Gap 9, Glomerular Filtration Rate > 60.0, Blood Urea Nitrogen 9, Creatinine 0.91, Sodium Level 144, Potassium Level 4.4, Chloride Level 113H, Carbon Dioxide Level 22, Calcium Level 8.7, Magnesium Level 2.0, White Blood Count 9.8, Red Blood Count 4.27L, Hemoglobin 12.5L, Hematocrit 38.6L, Mean Corpuscular Volume 90.3, Mean Corpuscular Hemoglobin 29.3, Mean Corpuscular Hemoglobin Concent 32.5, Red Cell Distribution Width 13.7, Platelet Count 444, Neutrophils (%) (Auto) 71.7H, Lymphocytes (%) (Auto) 18.8L, Monocytes (%) (Auto ) 5.2H, Eosinophils (%) (Auto) 1.6, Basophils (%) (Auto) 0.6, Neutrophils # ( Auto) 7.1, Lymphocytes # (Auto) 2.0, Monocytes # (Auto) 0.5, Eosinophils # (Auto ) 0.2, Basophils # (Auto) 0.1, Large Unclassified Cells % 2.0, Large Unclassified Cells # 0.2, Erythrocyte Sedimentation Rate 30H, Aspartate Amino Transf (AST/SGOT) 16, Alanine Aminotransferase (ALT/SGPT) 23, Alkaline Phosphatase 95, Total Bilirubin 0.3, Total Protein 5.9L, Albumin 2.6L, C- Reactive Protein, Quantitative 1.28H, Albumin/Globulin Ratio 0.79L CBC/BMP Laboratory Tests 04/25/17 15:13 Calcium Level 8.7 04/25/17 23:25 Calcium Level 8.8 04/26/17 07:00 Calcium Level 8.7, Red Blood Count 4.27 L, Mean Corpuscular Volume 90.3, Mean Corpuscular Hemoglobin 29.3, Mean Corpuscular Hemoglobin Concent 32.5, Red Cell Distribution Width 13.7, Neutrophils (%) (Auto) 71.7 H, Lymphocytes (%) (Auto) 18.8 L, Monocytes (%) (Auto) 5.2 H, Eosinophils (%) (Auto) 1.6, Basophils (%) ( Auto) 0.6, Neutrophils # (Auto) 7.1, Lymphocytes # (Auto) 2.0, Monocytes # (Auto ) 0.5, Eosinophils # (Auto) 0.2, Basophils # (Auto) 0.1, Aspartate Amino Transf (AST/SGOT) 16, Alanine Aminotransferase (ALT/SGPT) 23, Alkaline Phosphatase 95, Total Bilirubin 0.3, Total Protein 5.9 L, Albumin 2.6 L Microbiology Microbiology 04/24/17 Blood Culture - Preliminary, Resulted No Growth after 48 hours. All Specime... 04/24/17 Blood Culture - Preliminary, Resulted No Growth after 48 hours. All Specime... 04/24/17 Gastrointestinal Tract Panel (PCR) - Final, Complete 04/24/17 Urine Culture - Final, Complete GME ATTESTATION GME ATTESTATION My preceptor for this patient encounter was physically present in the building during the encounter and was fully available. As needed, all aspects of the patient interview, examination, medical decision making process, and medical care plan development were reviewed and approved by the preceptor. Preceptor is aware and concurs with the plan as stated in the body of this note and will attest to such by his/her cosignature. MAIA MOORE DO Apr 26, 2017 10:18
[2017-04-26] MEDS: ATORVASTATIN 10 MG TAB PO SCH (12:26)
[2017-04-26] MEDS: DULoxetine 30 MG CAP (CYMBALTA) PO SCH (12:26)
--- NOTE | 2017-04-26 17:50 | IPNPDOC ---
Date Seen The patient was seen on 04/26/17. at 12:55 PM. Progress Note Interval History: Patient underwent colonoscopy yesterday - procedure completed till descending colon only due to copious solid stool in colon ( procedure findings in operative note and also documented below). Patient tolerate procedure well. Patient denies any new complaints. He still had abdominal pain but having bowel movements - diarrhea stool. Currently NPO at this time. Discussed with nurse to initial clear liquid diet. Exam: Vitals noted. HEENT: no pallor, no icterus. Abdomen: soft, obese, non tender, normal bowel sounds. Labs: reviewed. Colonoscopy ( 04/25/2017) findings: Severe diverticulosis from sigmoid to descending colon with narrowing of the colon, Erythematous congested mucosa around that area. Biopsied. Stricture in the sigmoid colon - easily traversed using a regular colonoscope. Intraprocedural fluoroscopy done with injection of 100 ml of contrast proximal to the stricture and noted adequate passage of the contrast beyond the stricture. The distal rectum and anal verge are normal on retroflexion view. Impression: -- Sigmoid colon stricture likely from diverticulosis and possible diverticulitis. -- CT imaging of abdomen - showing colon mass -- but no luminal mass except for congested mucosa - s/p biopsy. Recommendation: - Clear liquid diet for today and advance as tolerated to Chopped diet and pureed diet. - Use broad spectrum antibiotics for 10 days. - Give daily laxative - miralax - to produce atleast two soft/loose bowel movements per day. ( Donot use lactulose). - Await pathology results. - Repeat colonoscopy to examine the rest of the colon with complete bowel preparation after pathology results are reviewed because the examination was incomplete. - to review with surgery team after pathology results for further management. - upon discharge patient needs Gi clinic appointment in 2 weeks. Plan of care discussed with patient and primary team updated. JULISSA CANCHOLA MD Apr 26, 2017 17:50
[2017-04-27] MEDS: CIPROFLOXACIN 400 MG in APPROPRIATE DILUENT 1 EA IV SCH ×2 (00:21→13:00)
[2017-04-27] MEDS: ONDANSETRON 4MG/2ML VIAL (J2405) IV PRN (00:22)
[2017-04-27] MEDS: HumaLOG INSULIN (NovoLOG) PER UNIT SC SCH ×4 (00:22→18:00)
[2017-04-27 06:00] VITALS: BP 145/90
[2017-04-27] MEDS: metroNIDAZOLE 500 MG in APPROPRIATE DILUENT 1 EA IV SCH ×3 (06:33→23:15)
[2017-04-27] MEDS: NS 1,000 ML IV SCH ×3 (06:34→20:05)
[2017-04-27] MEDS: HEPARIN SOD (PORCINE) 5000 UNITS/ML VIAL SC SCH ×3 (06:34→23:15)
[2017-04-27 07:05] LABS: MEAN CORPUSCULAR HEMOGLOBIN 29.9 pg (27.0-33.0); MEAN CORPUSCULAR HGB CONC 33.6 g/dl (32.0-36.5); MEAN CORPUSCULAR VOLUME 89.1 fl (80.0-96.0); RED CELL DISTRIBUTION WIDTH 13.6 % (11.5-14.5); WHITE BLOOD COUNT 12.1 K/mm3 (4.0-10.0)
[2017-04-27 07:34] LABS: ALBUMIN 2.4 GM/DL (3.2-5.2); ALBUMIN/GLOBULIN RATIO 0.62 (1.00-1.93); ALKALINE PHOSPHATASE 89 U/L (45-117); ALT/SGPT 21 U/L (12-78); ANION GAP 10 MEQ/L (8-16); AST/SGOT 15 U/L (15-37); BILIRUBIN,TOTAL 0.3 MG/DL (0.2-1.0); BLOOD UREA NITROGEN 8 MG/DL (7-18); CALCIUM LEVEL 8.4 MG/DL (8.5-10.1); CARBON DIOXIDE LEVEL 22 MEQ/L (21-32); CHLORIDE LEVEL 110 MEQ/L (98-107); CREATININE FOR GFR 0.91 MG/DL (0.70-1.30); GLOMERULAR FILTRATION RATE > 60.0 (>60); GLUCOSE, FASTING 108 MG/DL (70-105); MAGNESIUM LEVEL 1.9 MG/DL (1.8-2.4); POTASSIUM SERUM 4.1 MEQ/L (3.5-5.1); SODIUM LEVEL 142 MEQ/L (136-145); TOTAL PROTEIN 6.3 GM/DL (6.4-8.2)
--- NOTE | 2017-04-27 08:54 | ECGEPIP ---
Stationary ECG Study [facility] - ED Test Date: 2017-04-25 Pat Name: KAMLA DE LA CRUZ Department: Room: [place] [address] Gender: M Storeroom Clerk: TANI : 1980 Requested By: RUSLAN HOLLINS Order Number: [id number] Reading MD: Liliya Knott Measurements Intervals [place] Rate: 87 P: 36 SD: 162 QRS: 12 QRSD: 94 T: 61 QT: 333 QTc: 403 Interpretive Statements SINUS RHYTHM NONSPECIFIC T-WAVE ABNORMALITY NO PRIOR FOR COMPARISON Electronically Signed On 04-27-2017 8:54:15 EDT by Liliya Knott
[2017-04-27] MEDS: ATORVASTATIN 10 MG TAB PO SCH (10:53)
[2017-04-27] MEDS: DULoxetine 30 MG CAP (CYMBALTA) PO SCH (10:54)
[2017-04-27 14:00] VITALS: BP 140/89
[2017-04-27 22:00] VITALS: BP 129/80
--- NOTE | 2017-04-28 00:36 | IPNPDOC ---
Subjective Date Seen The patient was seen on 04/27/17. Subjective Chief Complaint/HPI The patient is a 36-year-old male admitted with a reason for visit of Colonic Obstruction. Pt was seen and examined at bedside. Pt's mother and father were present in the room. No acute changes. No reported events overnight. Pt states that he is feeling better this morning and reports one bowel movement overnight that was small, formed and non-bloody. Pt states that his nausea has improved. Pt denies vomiting, but did have an episode of dry heaving. Pt states he is tolerating the clear liquid diet and wishes to advance it further. Pt is able to ambulate around his bed without problems. Discussed plan with pt and parents. General: Denies: Chills, Night Sweats Constitutional: Denies: Chills, Fever, Night Sweats ENT: Denies: Head Aches, Dysphagia Pulmonary: Denies: Cough (positive dry heaves) Cardiovascular: Denies: Chest Pain, Lt Headedness Gastrointestinal: Denies: Nausea, Vomiting, Abdominal Pain, Diarrhea, Melena, Hematochezia Genitourinary: Denies: Hematuria Neurological: Denies: Weakness, Numbness Psych: Reports: Mood Normal Objective Physical Examination General Exam: Positive: Alert, Cooperative, No Acute Distress Eye Exam: Positive: EOMI ENT Exam: Positive: Atraumatic, Mucous membr. moist/pink Neck Exam: Positive: Supple, Negative: Lymphadenopathy Chest Exam: Positive: Clear to auscultation, Normal air movement, Negative: Rales, Rhonchi, Wheezing Heart Exam: Positive: Rate Normal, Normal S1, Normal S2 Abdomen Exam: Positive: Normal bowel sounds, Soft, Negative: Tenderness Extremity Exam: Positive: Normal pulses, Negative: Cyanosis, Edema Skin Exam: Negative: Rash Neuro Exam: Positive: Normal Speech Psych Exam: Positive: Mental status NL, Mood NL, Oriented x 3 Assessment /Plan Assessment N,V,D s/p colonoscopy on 04/25/17. Appreciate Dr. Putnam's input. Pathology resulted negative for malignancy or acute concerns surgery consulted. Appreciate Dr. Montelongo's input Stool studies - pending Zofran PRN nausea Continue strict I's/O's with attention to electrolytes Vitals stable, symptoms improving Diet advanced to soft food Leukocytosis Increased WBC today, afebrile. Possibly inflammation from scope procedure Continue Hayde Hillman for possible diverticulitis noted on colonoscopy report Continue IV hydration Blood cultures - negative at 72 hours GI panel negative HTN Continues to be normotensive. Continue holding home BP meds. Dyslipidemia Continue home statin Depression Continue home medication Diabetes Insulin sliding scale, fingersticks Morbid obesity Complicated care DVT prophylaxis Heparin Plan/VTE VTE Prophylaxis Ordered?: Yes VS, I&O, 24H, Fishbone Vital Signs/I&O Vital Signs Date Time Temp Pulse Resp B/P (MAP) Pulse Ox O2 Delivery O2 Flow Rate FiO2 04/27/17 06:00 97.7 56 18 145/90 (108) 96 Room Air I&O- Last 24 Hours up to 6 AM 04/27/17 06:00 Intake Total 2340 ml Output Total 750 ml Balance 1590 ml Laboratory Data 24H LABS Laboratory Tests 2 04/26/17 11:41: Bedside Glucose (Misc Panel) 113H 04/26/17 16:57: Bedside Glucose (Misc Panel) 97 04/27/17 00:05: Bedside Glucose (Misc Panel) 108H 04/27/17 06:17: Bedside Glucose (Misc Panel) 101 04/27/17 06:36: Anion Gap 10, Glomerular Filtration Rate > 60.0, Blood Urea Nitrogen 8, Creatinine 0.91, Sodium Level 142, Potassium Level 4.1, Chloride Level 110H, Carbon Dioxide Level 22, Calcium Level 8.4L, Aspartate Amino Transf (AST/SGOT) 15, Alanine Aminotransferase (ALT/SGPT) 21, Alkaline Phosphatase 89, Total Bilirubin 0.3, Total Protein 6.3L, Albumin 2.4L, Magnesium Level 1.9, Albumin/ Globulin Ratio 0.62L CBC/BMP Laboratory Tests 04/27/17 06:36 Red Blood Count 4.28 L, Mean Corpuscular Volume 89.1, Mean Corpuscular Hemoglobin 29.9, Mean Corpuscular Hemoglobin Concent 33.6, Red Cell Distribution Width 13.6, Calcium Level 8.4 L, Aspartate Amino Transf (AST/SGOT) 15, Alanine Aminotransferase (ALT/SGPT) 21, Alkaline Phosphatase 89, Total Bilirubin 0.3, Total Protein 6.3 L, Albumin 2.4 L Microbiology Microbiology 04/24/17 Blood Culture - Preliminary, Resulted No Growth after 48 hours. All Specime... 04/24/17 Blood Culture - Preliminary, Resulted No Growth after 48 hours. All Specime... 04/24/17 Gastrointestinal Tract Panel (PCR) - Final, Complete 04/24/17 Urine Culture - Final, Complete GME ATTESTATION GME ATTESTATION My preceptor for this patient encounter was physically present in the building during the encounter and was fully available. As needed, all aspects of the patient interview, examination, medical decision making process, and medical care plan development were reviewed and approved by the preceptor. Preceptor is aware and concurs with the plan as stated in the body of this note and will attest to such by his/her cosignature. MAIA MOORE DO Apr 27, 2017 08:06
[2017-04-28] MEDS: CIPROFLOXACIN 400 MG in APPROPRIATE DILUENT 1 EA IV SCH (01:59)
[2017-04-28] MEDS: NS 1,000 ML IV SCH ×2 (01:59→07:00)
[2017-04-28 06:00] VITALS: BP 160/80
[2017-04-28] MEDS: HumaLOG INSULIN (NovoLOG) PER UNIT SC SCH ×3 (06:00→11:56)
[2017-04-28] MEDS: HEPARIN SOD (PORCINE) 5000 UNITS/ML VIAL SC SCH (06:00)
[2017-04-28] MEDS: metroNIDAZOLE 500 MG in APPROPRIATE DILUENT 1 EA IV SCH (06:52)
[2017-04-28 08:07] LABS: CHLORIDE FECAL 81 mmol/L (.); OSMOLARITY STOOL 329 mOsmol/kg (Not Estab.); POTASSIUM FECAL 47 mmol/L (.); SODIUM FECAL 106 mmol/L (.)
[2017-04-28 08:59] LABS: MEAN CORPUSCULAR HEMOGLOBIN 29.9 pg (27.0-33.0); MEAN CORPUSCULAR HGB CONC 33.8 g/dl (32.0-36.5); MEAN CORPUSCULAR VOLUME 88.5 fl (80.0-96.0); RED CELL DISTRIBUTION WIDTH 13.6 % (11.5-14.5)
[2017-04-28] MEDS: DULoxetine 30 MG CAP (CYMBALTA) PO SCH (09:04)
[2017-04-28] MEDS: ATORVASTATIN 10 MG TAB PO SCH (09:04)
[2017-04-28 09:19] LABS: ALBUMIN 2.5 GM/DL (3.2-5.2); ALBUMIN/GLOBULIN RATIO 0.61 (1.00-1.93); ALKALINE PHOSPHATASE 91 U/L (45-117); ALT/SGPT 23 U/L (12-78); ANION GAP 8 MEQ/L (8-16); AST/SGOT 14 U/L (15-37); BILIRUBIN,TOTAL 0.3 MG/DL (0.2-1.0); BLOOD UREA NITROGEN 8 MG/DL (7-18); CALCIUM LEVEL 8.5 MG/DL (8.5-10.1); CARBON DIOXIDE LEVEL 24 MEQ/L (21-32); CHLORIDE LEVEL 109 MEQ/L (98-107); CREATININE FOR GFR 1.01 MG/DL (0.70-1.30); GLOMERULAR FILTRATION RATE > 60.0 (>60); GLUCOSE, FASTING 96 MG/DL (70-105); MAGNESIUM LEVEL 1.7 MG/DL (1.8-2.4); POTASSIUM SERUM 3.8 MEQ/L (3.5-5.1); SODIUM LEVEL 141 MEQ/L (136-145); TOTAL PROTEIN 6.6 GM/DL (6.4-8.2)
[2017-04-28] MEDS ORDERED: CIPR500T19 PO (12:06)
[2017-04-28] MEDS ORDERED: FLAG500T PO (12:06)
[2017-04-28] MEDS ORDERED: ZOFR20TA PO (12:06)
[2017-05-05] MEDS ORDERED: MIRA3350 PO (09:06)
--- NOTE | 2017-05-08 11:22 | DS.PDOC ---
Discharge Summary General Date of Admission Apr 24, 2017 at 15:41 Date of Discharge 04/28/17 Primary Care Physician: LINDA BOB PA-C Attending Physician: JUAN OWENS DO Specialist/Consultants Involve Dr. Putnam-[facility] [facility] Justice Dr. Montelongo-General Surgeon Discharge Summary PROCEDURES PERFORMED DURING STAY: Colonoscopy DISCHARGE DIAGNOSES: 1. Sigmoid colon stricture likely from diverticulosis and possible diverticulitis 2. Diverticulosis 3. Partial sigmoid obstruction 4. HTN 5. Hyperlipidemia 6. Depression COMPLICATIONS/CHIEF COMPLAINT: Colonic Obstruction. HISTORY OF PRESENT ILLNESS: Mr. Estrada presented to the ED for profuse diarrhea and N/V, with similar episodes in November and February of 2017, but much worse this time. He denied travel history, sick contacts, medication changes, and eating out at restaurants. Rectal tube was placed in the ED and pt started on Cipro & Flagyl with IV hydration. Previous CT's had shown colonic stenosis and he had started seeing Dr. Putnam of GI in outpatient setting. In the ED, vitals were WNL, pt had a WBC of 18.4, and CT was concerning for 8cm area mass in rectosigmoid colon consistent with colonic malignant neoplasm. HOSPITAL COURSE: Stool studies, urine cultures, and GI panel were negative. Blood culture was positive for Micrococcus. Dr. Montelongo was consulted for possible surgical intervention for mass noted on imaging, but no surgical intervention was deemed necessary at the time. Dr. Putnam of GI was also consulted and colonoscopy was performed on 04/25. Sigmoid biopsy was negative for dysplasia, but notable for severe diverticulosis in descending colon with erythematous congested mucosa & strictured sigmoid. Colonoscopy was noted to be incomplete due to poor prep, and pt was instructed to have repeat colonoscopy in outpatient setting. Pt tolerated advancing diet well, and stated he felt much improved as N/V/D all resolved. He was medically cleared. It was discussed with pt to follow up with Dr. Putnam as outpatient in 1 week, and with PCP in 1-2 weeks. DISCHARGE MEDICATIONS: Please see below. ALLERGIES: Please see below. PHYSICAL EXAMINATION ON DISCHARGE: VITAL SIGNS: Please see below. GENERAL: NAD, A&Ox3 HEENT: Atraumatic, normocephalic, EOMI NECK: supple, no lymphadenopathy CARDIOVASCULAR EXAMINATION: Normal S1 & S2. RRR RESPIRATORY EXAMINATION: CTAB, no wheezing ABDOMINAL EXAMINATION: normal bowel sounds, soft, nontender EXTREMITIES: normal pulses. No cyanosis or edema SKIN: no visible rash NEUROLOGICAL EXAMINATION: normal speech PSYCHIATRIC EXAMINATION: normal mood LABORATORY DATA: Please see below. IMAGING: * 04/24/17 CT abd/pelvis: 8 cm area of nodular colonic wall thickening and mass effect in the rectosigmoid colon consistent with colonic malignant neoplasm. Enterocolitis picture with mural thickening in the colon and moderate fluid distension of the large bowel and small bowel loops throughout the abdomen again noted. * 04/24/17 CXR: no acute disease PROGNOSIS: Fair ACTIVITY: As tolerated DIET: Soft diet, advance as tolerated DISPOSITION: Home DISCHARGE INSTRUCTIONS: 1. Follow up with PCP Linda Bob within 2 weeks 2. Follow up with GI Dr. Putnam in 1 week 3. Return to ED if symptoms worsen or if new emergency arises DISCHARGE CONDITION: Stable TIME SPENT ON DISCHARGE: Greater than 45 minutes. Vital Signs/I&Os Vital Signs Date Time Temp Pulse Resp B/P (MAP) Pulse Ox O2 Delivery O2 Flow Rate FiO2 04/28/17 06:00 96.8 50 20 160/80 (106) 98 Room Air I&O- Last 24 Hours up to 6 AM 04/28/17 06:00 Intake Total 5040 ml Output Total 1400 ml Balance 3640 ml Laboratory Data Labs 24H Laboratory Tests 2 04/27/17 11:50: Bedside Glucose (Misc Panel) 133H 04/28/17 08:34: Anion Gap 8, Glomerular Filtration Rate > 60.0, Blood Urea Nitrogen 8, Creatinine 1.01, Sodium Level 141, Potassium Level 3.8, Chloride Level 109H, Carbon Dioxide Level 24, Calcium Level 8.5, Aspartate Amino Transf (AST/SGOT) 14L, Alanine Aminotransferase (ALT/SGPT) 23, Alkaline Phosphatase 91, Total Bilirubin 0.3, Total Protein 6.6, Albumin 2.5L, Magnesium Level 1.7L, Albumin/ Globulin Ratio 0.61L CBC/BMP Laboratory Tests 04/28/17 08:34 Red Blood Count 4.51, Mean Corpuscular Volume 88.5, Mean Corpuscular Hemoglobin 29.9, Mean Corpuscular Hemoglobin Concent 33.8, Red Cell Distribution Width 13.6 , Calcium Level 8.5, Aspartate Amino Transf (AST/SGOT) 14 L, Alanine Aminotransferase (ALT/SGPT) 23, Alkaline Phosphatase 91, Total Bilirubin 0.3, Total Protein 6.6, Albumin 2.5 L FSBS Laboratory Tests Test 04/27/17 11:50 Range/Units Bedside Glucose (Misc Panel) 133 70-105 MG/DL Microbiology Microbiology 04/24/17 Blood Culture - Preliminary, Resulted 04/24/17 Blood Culture - Preliminary, Resulted No Growth after 72 hours. All specime... 04/24/17 Gastrointestinal Tract Panel (PCR) - Final, Complete 04/24/17 Urine Culture - Final, Complete Discharge Medications Scheduled Atorvastatin Calcium (Atorvastatin Calcium) 10 Mg Tab, 10 MG PO DAILY, (Reported ) Chlorthalidone (Chlorthalidone) 50 Mg Tab, 50 MG PO DAILY, (Reported) Duloxetine Hcl (Duloxetine HCl) 60 Mg Cap, 60 MG PO DAILY, (Reported) Glipizide (Glipizide ER) 10 Mg Tab, 10 MG PO DAILY, (Reported) Lisinopril (Lisinopril) 20 Mg Tab, 20 MG PO QPM, (Reported) AFTER DINNER Metformin Hydrochloride (Metformin HCl ER) 500 Mg Tab, 500 MG PO QPM, (Reported) AFTER DINNER Polyethylene Glycol (Miralax) 1 Pow Pow, 17 GM PO DAILY, (Reported) dilute in 8 ounces of water or juice Allergies Coded Allergies: Penicillins (Verified Allergy, Unknown, 05/05/17) GME ATTESTATION GME ATTESTATION My preceptor for this patient encounter was physically present in the building during the encounter and was fully available. As needed, all aspects of the patient interview, examination, medical decision making process, and medical care plan development were reviewed and approved by the preceptor. Preceptor is aware and concurs with the plan as stated in the body of this note and will attest to such by his/her cosignature. MAIA MOORE DO Apr 28, 2017 11:26 JUAN OWENS DO May 10, 2017 21:09
== END 2017-04-28 13:44 | disposition home or self-care (01) | DRG 389 ==
LOC: EDBD 09:00 → M ED 09:00 → M ED INP 15:41 → M PCU 17:16 → M MS5PR 04-26 02:29
PROVIDERS: ADMIT Hospitalist; ATTEND Internal Medicine
PROC: 0DBN8ZX Excision of Sigmoid Colon, Via Natural or Artificial Opening Endoscopic, Diagnostic (ICD-10-PCS; principal; 2017-04-25 16:00)
DX: K56.69 Other intestinal obstruction (principal); E87.2 Acidosis; Z68.43 Body mass index [BMI] 50.0-59.9, adult; K57.32 Diverticulitis of large intestine without perforation or abscess without bleeding; R11.2 Nausea with vomiting, unspecified; R19.7 Diarrhea, unspecified; E78.5 Hyperlipidemia, unspecified; I10 Essential (primary) hypertension; E11.9 Type 2 diabetes mellitus without complications; E66.01 Morbid (severe) obesity due to excess calories; F41.9 Anxiety disorder, unspecified; F32.9 Major depressive disorder, single episode, unspecified; M51.26 Other intervertebral disc displacement, lumbar region; Z79.84 Long term (current) use of oral hypoglycemic drugs; Z79.899 Other long term (current) drug therapy; Z88.0 Allergy status to penicillin

== ENCOUNTER 2017-05-09 06:24 | Day surgery (SDC) | payer MEDICARE, MEDICAID ==
[~2017-05-09] VITALS: Ht 185.4 cm; Wt 170.1 kg
[~2017-05-09 06:24] MED LIST changes: +CIPR500T19 PO; +GLIP10TA6 PO; +MIRA3350 PO; +POLY33502 PO; +ZOFR20TA PO
[2017-05-09] MEDS ORDERED: LIDOCAINE 1% SDV 5 ML VIAL SQ ONE (06:30)
[2017-05-09] MEDS: LR 1,000 ML IV SCH (07:02)
[2017-05-09] MEDS ORDERED: LIDOCAINE 2% INJ 100 MG/5 ML SDV (FOR ANES.) As Ordered ONE (07:14)
[2017-05-09] MEDS ORDERED: PROPOFOL 200 MG/20 ML VIAL As Ordered ONE ×3 (07:14→08:12)
[2017-05-09] MEDS ORDERED: MIDAZOLAM INJ 2 MG/2 ML VIAL (J2250) As Ordered ONE (07:38)
--- NOTE | 2017-05-09 08:48 | ROOR ---
Patient Name: Gopi Suggs Procedure Date: 05/09/2017 12:18 AM Date of : 1980 Age: 36 Room: Main OR Gender: Male Note Status: Finalized Procedure: Colonoscopy Indications: Abnormal CT of the GI tract Providers: Durga Putnam MD Referring MD: 1. No Referring Physician 1. No Referring Physician, Admin. Requesting Provider: Medicines: Monitored Anesthesia Care Complications: No immediate complications. Procedure: Pre-Anesthesia Assessment: - Prior to the procedure, a History and Physical was performed, and patient medications and allergies were reviewed. The patient is competent. The risks and benefits of the procedure and the sedation options and risks were discussed with the patient. All questions were answered and informed consent was obtained. Patient identification and proposed procedure were verified by the physician, the nurse and the oil heat technician in the procedure room. Mental Status Examination: alert and oriented. Airway Examination: normal oropharyngeal airway and neck mobility. Respiratory Examination: clear to auscultation. CV Examination: normal. Prophylactic Antibiotics: The patient does not require prophylactic antibiotics. Prior Anticoagulants: The patient has taken no previous anticoagulant or antiplatelet agents. ASA Grade Assessment: III - A patient with severe systemic disease. After reviewing the risks and benefits, the patient was deemed in satisfactory condition to undergo the procedure. The anesthesia plan was to use monitored anesthesia care (MAC). Immediately prior to administration of medications, the patient was re-assessed for adequacy to receive sedatives. The heart rate, respiratory rate, oxygen saturations, blood pressure, adequacy of pulmonary ventilation, and response to care were monitored throughout the procedure. The physical status of the patient was re-assessed after the procedure. The Colonoscope was introduced through the anus and advanced to the cecum, identified by appendiceal orifice and ileocecal valve. The colonoscopy was performed without difficulty. The patient tolerated the procedure well. The quality of the bowel preparation was poor. The ileocecal valve, appendiceal orifice, and rectum were photographed. Scope insertion time was 7 minutes. Scope withdrawal time was 12 minutes. The total duration of the procedure was 25 minutes. Findings: The perianal and digital rectal examinations were normal. Multiple small and large-mouthed diverticula were found from sigmoid to descending colon. There was narrowing of the colon in association with the diverticular opening. Melinda-diverticular erythema was seen. There was no evidence of diverticular bleeding. A benign-appearing, intrinsic severe stenosis measuring 10 cm (in length) was found in the sigmoid colon and was traversed. Biopsies were taken with a cold forceps for histology. Verification of patient identification for the specimen was done by the physician and nurse using the patient's name, date and medical record number. Estimated blood loss was minimal. The exam was otherwise without abnormality. Impression: - Preparation of the colon was poor. - Severe diverticulosis from sigmoid to descending colon. There was narrowing of the colon in association with the diverticular opening. Melinda-diverticular erythema was seen. There was no evidence of diverticular bleeding. - Stricture in the sigmoid colon. Biopsied. - The examination was otherwise normal. Recommendation: - Patient has a contact number available for emergencies. The signs and symptoms of potential delayed complications were discussed with the patient. Return to normal activities tomorrow. Written discharge instructions were provided to the patient. - Low fiber diet. - Continue present medications. - Use broad spectrum antibiotics for 5 days -- prescriptions sent to pharmacy.. - Repeat colonoscopy in 1 year to check healing. - Return to GI clinic after surgical plans are completed. - Refer to a surgeon as scheduled. - Return to primary care physician. Durga Putnam MD Durga Putnam MD 05/09/2017 8:47:39 AM This report has been signed electronically. Number of Addenda: 0 Note Initiated On: 05/09/2017 12:18 AM Estimated Blood Loss: Estimated blood loss was minimal.
[2017-05-09 09:20] VITALS: BP 127/88
[2017-05-09] MEDS: ONDANSETRON 4 MG ORAL DISINTEGRATING TAB (S0181) PO ONE (10:15)
== END 2017-05-09 10:30 | disposition home or self-care (01) ==
LOC: M SDC 06:24
PROVIDERS: ATTEND Internal Medicine Gastroenterology
DX: K56.69 Other intestinal obstruction (principal); K57.30 Diverticulosis of large intestine without perforation or abscess without bleeding; I10 Essential (primary) hypertension; E11.9 Type 2 diabetes mellitus without complications; L40.9 Psoriasis, unspecified; F32.9 Major depressive disorder, single episode, unspecified; E78.00 Pure hypercholesterolemia, unspecified; Z88.0 Allergy status to penicillin; Z79.899 Other long term (current) drug therapy; Z79.84 Long term (current) use of oral hypoglycemic drugs

== ENCOUNTER 2017-06-23 21:30 | Emergency (ER) | payer MEDICARE, MEDICAID ==
[~2017-06-23] VITALS: Ht 185.4 cm; Wt 176.5 kg
[2017-06-23] MEDS ORDERED: ONDANSETRON 4MG/2ML VIAL (J2405) IV ONE (22:15)
[2017-06-23] MEDS ORDERED: NS 1,000 ML IV ONE (22:15)
[2017-06-23 22:35] LABS: BASO # 0.1 10^3/uL (0.0-0.2); BASO % 0.5 % (0.0-1.0); EOS # 0.3 10^3/uL (0.0-0.50); EOS % 0.9 % (0.0-3.0); IMMATURE GRANULOCYTE % 0.5 % (0-0); LYMPH # 3.1 10^3/uL (1.5-4.5); LYMPH % 11.3 % (24.0-44.0); MEAN CORPUSCULAR HEMOGLOBIN 28.9 pg (27.0-33.0); MEAN CORPUSCULAR HGB CONC 33.7 g/dl (32.0-36.5); MEAN CORPUSCULAR VOLUME 85.8 fl (80.0-96.0); MONO # 1.2 10^3/uL (0.0-0.8); MONO % 4.3 % (0.0-5.0); NEUTROPHILS # 22.5 10^3/uL (1.8-7.7); NEUTROPHILS % 82.5 % (36.0-66.0); PLATELET COUNT, AUTOMATED 771 10^3/uL (150-450); RED CELL DISTRIBUTION WIDTH 14.4 % (11.5-14.5); WHITE BLOOD COUNT 27.3 10^3/uL (4.0-10.0)
[2017-06-23 23:58] LABS: ALBUMIN 3.9 GM/DL (3.2-5.2); ALBUMIN/GLOBULIN RATIO 0.75 (1.00-1.93); ALKALINE PHOSPHATASE 184 U/L (45-117); ALT/SGPT 23 U/L (12-78); AMYLASE 35 U/L (25-115); ANION GAP 8 MEQ/L (8-16); AST/SGOT 23 U/L (7-37); BILIRUBIN,DIRECT 0.2 MG/DL (0.0-0.2); BILIRUBIN,TOTAL 0.6 MG/DL (0.2-1.0); BLOOD UREA NITROGEN 12 MG/DL (7-18); CALCIUM LEVEL 10.7 MG/DL (8.5-10.1); CARBON DIOXIDE LEVEL 25 MEQ/L (21-32); CHLORIDE LEVEL 103 MEQ/L (98-107); CREATININE FOR GFR 1.38 MG/DL (0.70-1.30); GLOMERULAR FILTRATION RATE > 60.0 (>60); GLUCOSE, FASTING 155 MG/DL (70-105); POTASSIUM SERUM 4.8 MEQ/L (3.5-5.1); SODIUM LEVEL 136 MEQ/L (136-145); TOTAL PROTEIN 9.1 GM/DL (6.4-8.2)
[2017-06-24] MEDS ORDERED: NS 1,000 ML IV ONE (00:15)
[2017-06-24] MEDS ORDERED: ZOFR4TAB3 PO ×2 (00:59→02:51)
[2017-06-24] MEDS ORDERED: GASTROGRAFIN SOLUTION 30ML PO ONE (02:55)
[2017-06-24] MEDS ORDERED: GASTROGRAFIN SOLUTION 30ML (Q9963) As Ordered ONE (03:17)
[2017-06-24] MEDS ORDERED: GASTROGRAFIN SOLUTION 30ML (Q9963) PO ONE (03:20)
[2017-06-24] MEDS ORDERED: ONDANSETRON 4MG/2ML VIAL (J2405) IV ONE (03:45)
--- NOTE | 2017-06-24 05:00 | REPUSA ---
CLINICAL HISTORY: Abdominal pain. TECHNIQUE: Multiple axial, sagittal and coronal CT images were obtained through the abdomen and pelvi s without administration of oral or IV contrast material. COMMENTS: Comparison to prior exam on 04/24/2017. Unchanged multifocal thickening of the sigmoid colon with associated mural nodularity and surrounding fat stranding. Unchanged associated partial large bowel obstruction at the level of the sigmoid narrowing. The liver is of uniform attenuation without mass or defect. There is no intra or extrahepatic biliary ductal dilatation. The spleen is normal. The gallbladder is within normal limits. The pancreas is of normal contour and attenuation characteristics. There is no evidence of adrenal mass. The kidneys are normal in size, shape and configuration. No renal or ureteral calculi are identified. There is no hydroureter or hydronephrosis. There is no evidence for appendicitis. There is no evidence of abdominal ascites or lymphadenopathy. There is no evidence of intrinsic or extrinsic bladder mass. There is no pelvic ascites or lymphadeno jd. Images of the lung bases show no evidence of pleural or parenchymal mass. There are no pleural effusi ons. The bony structures are free of lytic or blastic lesions. IMPRESSION: Unchanged multifocal thickening of the sigmoid colon with associated mural nodularity and surrounding fat stranding. Infectious/inflammatory versus neoplastic pathology. Unchanged associated partial large bowel obstruction at the level of the sigmoid narrowing. Thank you for your kind referral of this patient.
[2017-06-24] MEDS ORDERED: CIPR-249 PO (09:01)
[2017-06-24] MEDS ORDERED: FLAG500T PO (09:01)
--- NOTE | 2017-06-24 09:05 | ED PDOC ---
Post-Departure Follow-Up Pt was an admitted pt pending Dr Srinivasan evaluation. Pt evalauted by Dr Srinivasan. See consult note. Care handed over to him. He would like pt discharged , GI panel added and sent (done per RN), and d/c on cipro and flagyl for 10 days. He has close follow up appt with colorectal surgeon on monday. He will return if worsening Gilberto Merida MD Jun 24, 2017 09:05
[2017-06-24 09:18] VITALS: BP 132/81
== END 2017-06-24 09:20 | disposition home or self-care (01) ==
LOC: M ED 21:30
DX: K52.9 Noninfective gastroenteritis and colitis, unspecified (principal); E11.9 Type 2 diabetes mellitus without complications; I10 Essential (primary) hypertension; E78.5 Hyperlipidemia, unspecified; G89.29 Other chronic pain; M54.9 Dorsalgia, unspecified; E66.8 Other obesity; Z79.899 Other long term (current) drug therapy; Z79.84 Long term (current) use of oral hypoglycemic drugs; Z88.0 Allergy status to penicillin
CPT/HCPCS: 36415; 74176; 80048; 80076; 82150; 83690; 85025; 87507; 96374; 96375; 99284; J2405; Q9963

== ENCOUNTER 2017-08-27 15:04 | Emergency (ER) | payer MEDICARE, MEDICAID | END 2017-08-27 18:51 | disposition home or self-care (01) | LOC: M ED 15:04 | DX: Z48.89 Encounter for other specified surgical aftercare (principal); E11.9 Type 2 diabetes mellitus without complications; I10 Essential (primary) hypertension; E78.5 Hyperlipidemia, unspecified; Z87.19 Personal history of other diseases of the digestive system; Z79.899 Other long term (current) drug therapy; Z79.82 Long term (current) use of aspirin; Z79.84 Long term (current) use of oral hypoglycemic drugs; Z88.0 Allergy status to penicillin | CPT/HCPCS: 99284 ==

== ENCOUNTER → 2017-10-10 | Outpatient (REF) | payer MEDICARE, MEDICAID ==
[2017-10-10 20:55] LABS: BASO # 0.1 10^3/uL (0.0-0.2); BASO % 0.6 % (0.0-1.0); EOS # 0.2 10^3/uL (0.0-0.50); EOS % 1.2 % (0.0-3.0); HEMATOCRIT 41.9 % (42.0-52.0); HEMOGLOBIN 13.3 g/dl (14.0-18.0); IMMATURE GRANULOCYTE % 0.5 % (0-3.0); LYMPH # 2.6 10^3/uL (1.5-4.5); LYMPH % 19.2 % (24.0-44.0); MEAN CORPUSCULAR HEMOGLOBIN 27.9 pg (27.0-33.0); MEAN CORPUSCULAR HGB CONC 31.7 g/dl (32.0-36.5); MEAN CORPUSCULAR VOLUME 87.8 fl (80.0-96.0); MONO # 0.9 10^3/uL (0.0-0.8); MONO % 6.5 % (0.0-5.0); NEUTROPHILS # 9.7 10^3/uL (1.8-7.7); PLATELET COUNT, AUTOMATED 597 10^3/uL (150-450); RED BLOOD COUNT 4.77 10^6/uL (4.30-6.10); RED CELL DISTRIBUTION WIDTH 13.3 % (11.5-14.5); WHITE BLOOD COUNT 13.5 10^3/uL (4.0-10.0)
[2017-10-10 21:16] LABS: ALBUMIN 2.9 GM/DL (3.2-5.2); ALBUMIN/GLOBULIN RATIO 0.51 (1.00-1.93); ALKALINE PHOSPHATASE 129 U/L (45-117); ALT/SGPT 101 U/L (12-78); ANION GAP 12 MEQ/L (8-16); AST/SGOT 100 U/L (7-37); BILIRUBIN,TOTAL 0.4 MG/DL (0.2-1.0); BLOOD UREA NITROGEN 11 MG/DL (7-18); CALCIUM LEVEL 9.2 MG/DL (8.5-10.1); CARBON DIOXIDE LEVEL 29 MEQ/L (21-32); CHLORIDE LEVEL 93 MEQ/L (98-107); CREATININE FOR GFR 0.98 MG/DL (0.70-1.30); GLOMERULAR FILTRATION RATE > 60.0 (>60); GLUCOSE, FASTING 134 MG/DL (70-100); POTASSIUM SERUM 3.6 MEQ/L (3.5-5.1); SODIUM LEVEL 134 MEQ/L (136-145); TOTAL PROTEIN 8.6 GM/DL (6.4-8.2)
[2017-10-10 21:35] LABS: ESTIMATED AVERAGE GLUCOSE 117 MG/DL (60-110); HEMOGLOBIN A1c 5.7 %
== END ==
LOC: M SFHCLERA 16:18
DX: E11.9 Type 2 diabetes mellitus without complications (principal); R05 Cough
CPT/HCPCS: 80053

== ENCOUNTER → 2017-10-10 | Outpatient (CLI) | payer MEDICARE, MEDICAID | LOC: M LRY 15:23 | DX: J92.9 Pleural plaque without asbestos (principal); R05 Cough; E11.9 Type 2 diabetes mellitus without complications; R09.82 Postnasal drip; E66.01 Morbid (severe) obesity due to excess calories; Z90.49 Acquired absence of other specified parts of digestive tract | CPT/HCPCS: 71046; 80053 ==

== ENCOUNTER → 2017-12-28 | Outpatient (CLI) | payer MEDICARE, MEDICAID ==
[~2017-12-28] MED LIST changes: -ATOR1TAB19 PO; -CHLO50TA PO; -CIPR-249 PO; -CIPR500T19 PO; -DULO1CAP3 PO; -FLAG500T PO; +GASTROGRAFIN SOLUTION 30ML (Q9963) As Ordered; -GLIP10TA6 PO; -GLIP1TAB51 PO; -LISI-538 PO; -METF500T4 PO; -MIRA3350 PO; -POLY33502 PO; -ZOFR20TA PO
== END ==
LOC: M RAD 10:25
DX: K91.89 Other postprocedural complications and disorders of digestive system (principal); Y83.2 Surgical operation with anastomosis, bypass or graft as the cause of abnormal reaction of the patient, or of later complication, without mention of misadventure at the time of the procedure; K57.30 Diverticulosis of large intestine without perforation or abscess without bleeding; Z93.3 Colostomy status
CPT/HCPCS: Q9963

== ENCOUNTER → 2018-02-01 | Outpatient (REF) | payer MEDICARE, MEDICAID ==
[2018-02-01 17:13] LABS: ALBUMIN 3.7 GM/DL (3.2-5.2); ALBUMIN/GLOBULIN RATIO 0.79 (1.00-1.93); ALKALINE PHOSPHATASE 114 U/L (45-117); ALT/SGPT 27 U/L (12-78); ANION GAP 7 MEQ/L (8-16); AST/SGOT 15 U/L (7-37); BILIRUBIN,TOTAL 0.3 MG/DL (0.2-1.0); BLOOD UREA NITROGEN 16 MG/DL (7-18); CALCIUM LEVEL 9.4 MG/DL (8.5-10.1); CARBON DIOXIDE LEVEL 34 MEQ/L (21-32); CHLORIDE LEVEL 98 MEQ/L (98-107); CREATININE FOR GFR 1.07 MG/DL (0.70-1.30); GLOMERULAR FILTRATION RATE > 60.0 (>60); GLUCOSE, FASTING 113 MG/DL (70-100); POTASSIUM SERUM 3.6 MEQ/L (3.5-5.1); SODIUM LEVEL 139 MEQ/L (136-145); TOTAL PROTEIN 8.4 GM/DL (6.4-8.2)
[2018-02-01 17:18] LABS: BASO # 0.1 10^3/uL (0.0-0.2); EOS # 0.6 10^3/uL (0.0-0.50); EOS % 4.9 % (0.0-3.0); HEMATOCRIT 44.2 % (42.0-52.0); HEMOGLOBIN 14.4 g/dl (13.5-17.5); IMMATURE GRANULOCYTE % 0.3 % (0-3.0); LYMPH # 3.3 10^3/uL (1.5-4.5); LYMPH % 26.2 % (24.0-44.0); MEAN CORPUSCULAR HEMOGLOBIN 28.8 pg (27.0-33.0); MEAN CORPUSCULAR HGB CONC 32.6 g/dl (32.0-36.5); MEAN CORPUSCULAR VOLUME 88.4 fl (80.0-96.0); MONO # 0.9 10^3/uL (0.0-0.8); MONO % 7.1 % (0.0-5.0); NEUTROPHILS # 7.5 10^3/uL (1.8-7.7); NEUTROPHILS % 60.5 % (36.0-66.0); PLATELET COUNT, AUTOMATED 574 10^3/uL (150-450); RED CELL DISTRIBUTION WIDTH 14.6 % (11.5-14.5); WHITE BLOOD COUNT 12.4 10^3/uL (4.0-10.0)
== END ==
LOC: M SFHCLERA 10:56
DX: Z01.818 Encounter for other preprocedural examination (principal); Z90.49 Acquired absence of other specified parts of digestive tract
CPT/HCPCS: 80053

== ENCOUNTER → 2018-03-19 | Outpatient (REF) | payer MEDICARE, MEDICAID | LOC: M SFHCLERA 11:59 | DX: J02.9 Acute pharyngitis, unspecified (principal) ==

== ENCOUNTER → 2018-08-01 | Outpatient (REF) | payer MEDICARE, MEDICAID ==
[2018-08-01 16:20] LABS: BASO # 0.1 10^3/uL (0.0-0.2); EOS # 0.6 10^3/uL (0.0-0.50); EOS % 4.4 % (0.0-3.0); HEMATOCRIT 44.1 % (42.0-52.0); HEMOGLOBIN 14.2 g/dl (13.5-17.5); IMMATURE GRANULOCYTE % 0.5 % (0-3.0); LYMPH # 3.7 10^3/uL (1.5-4.5); LYMPH % 28.4 % (24.0-44.0); MEAN CORPUSCULAR HEMOGLOBIN 28.3 pg (27.0-33.0); MEAN CORPUSCULAR HGB CONC 32.2 g/dl (32.0-36.5); MONO # 1.2 10^3/uL (0.0-0.8); MONO % 8.8 % (0.0-5.0); NEUTROPHILS # 7.4 10^3/uL (1.8-7.7); NEUTROPHILS % 56.9 % (36.0-66.0); PLATELET COUNT, AUTOMATED 545 10^3/uL (150-450); RED BLOOD COUNT 5.01 10^6/uL (4.30-6.10); RED CELL DISTRIBUTION WIDTH 14.2 % (11.5-14.5)
[2018-08-01 16:50] LABS: ALBUMIN 3.3 GM/DL (3.2-5.2); ALKALINE PHOSPHATASE 106 U/L (45-117); ALT/SGPT 36 U/L (12-78); ANION GAP 8 MEQ/L (8-16); AST/SGOT 25 U/L (7-37); BILIRUBIN,TOTAL 0.3 MG/DL (0.2-1.0); BLOOD UREA NITROGEN 12 MG/DL (7-18); CALCIUM LEVEL 8.8 MG/DL (8.5-10.1); CARBON DIOXIDE LEVEL 34 MEQ/L (21-32); CHLORIDE LEVEL 97 MEQ/L (98-107); CHOLESTEROL LEVEL 164 MG/DL (<200); CHOLESTEROL RISK RATIO 4.685 (<5); CREATININE FOR GFR 1.16 MG/DL (0.70-1.30); FREE T4 0.98 NG/DL (0.76-1.46); GLOMERULAR FILTRATION RATE > 60.0 (>60); GLUCOSE, FASTING 148 MG/DL (70-100); HDL CHOLESTEROL 35 MG/DL (>40); LDL CHOLESTEROL 105 MG/DL (<100); NON-HDL-C 129 MG/DL; POTASSIUM SERUM 3.6 MEQ/L (3.5-5.1); SODIUM LEVEL 139 MEQ/L (136-145); TRIGLYCERIDES LEVEL 118 MG/DL (<150)
[2018-08-01 17:04] LABS: ESTIMATED AVERAGE GLUCOSE 183 MG/DL (60-110)
[2018-08-01 17:28] LABS: MALB URINE SIEMENS 25.1 MG/L; MAU/CREAT RATIO 11.5 MCG/MG (0.0-30.0)
== END ==
LOC: M SFHCADAM 11:41
DX: E11.9 Type 2 diabetes mellitus without complications (principal); E78.2 Mixed hyperlipidemia; D47.3 Essential (hemorrhagic) thrombocythemia; E66.01 Morbid (severe) obesity due to excess calories; Z68.43 Body mass index [BMI] 50.0-59.9, adult
CPT/HCPCS: 84443

== ENCOUNTER → 2018-10-31 | Outpatient (CLI) | payer MEDICARE, MEDICAID ==
[~2018-10-31] MED LIST changes: +ASPI1TAB PO; +ATOR1TAB19 PO; +CEPH500C PO; +CHLO50TA PO; +CIPR-249 PO; +CIPR500T19 PO; +DULO1CAP3 PO; +FLAG500T PO; +FLUC200T2 PO; -GASTROGRAFIN SOLUTION 30ML (Q9963) As Ordered; +GLIP10TA18 PO; +GLIP10TA6 PO; +LISI-538 PO; +METF500T4 PO; +MIRA3350 PO; +PANT40TA3 PO; +POLY1POW38 PO; +SERT50TA PO; +ZOFR4TAB14 PO; +ZOFR4TAB16 PO
[2018-10-31 18:31] LABS: BLOOD UREA NITROGEN 15 MG/DL (7-18); CALCIUM LEVEL 8.4 MG/DL (8.5-10.1); CARBON DIOXIDE LEVEL 31 MEQ/L (21-32); CHLORIDE LEVEL 99 MEQ/L (98-107); CREATININE FOR GFR 1.04 MG/DL (0.70-1.30); GLOMERULAR FILTRATION RATE > 60.0 (>60); GLUCOSE, FASTING 167 MG/DL (70-100); POTASSIUM SERUM 3.7 MEQ/L (3.5-5.1); SODIUM LEVEL 138 MEQ/L (136-145)
[2018-10-31 18:57] LABS: HEMOGLOBIN A1c 8.5 %
== END ==
LOC: M WUC 11:40
PROVIDERS: ATTEND Family Medicine
DX: E11.9 Type 2 diabetes mellitus without complications (principal)

== ENCOUNTER → 2019-01-25 | Outpatient (CLI) | payer MEDICARE, MEDICAID ==
[~2019-01-25] MED LIST changes: -ASPI1TAB PO; +ASPI81TA26 PO; +SERT-141 PO; -SERT50TA PO
[2019-01-25 13:21] LABS: HEMOGLOBIN A1c 7.9 %
[2019-01-25 13:28] LABS: BLOOD UREA NITROGEN 12 MG/DL (7-18); CALCIUM LEVEL 8.7 MG/DL (8.5-10.1); CARBON DIOXIDE LEVEL 33 MEQ/L (21-32); CHLORIDE LEVEL 101 MEQ/L (98-107); CREATININE FOR GFR 1.13 MG/DL (0.70-1.30); GLOMERULAR FILTRATION RATE > 60.0 (>60); GLUCOSE, FASTING 119 MG/DL (70-100); POTASSIUM SERUM 3.8 MEQ/L (3.5-5.1); SODIUM LEVEL 141 MEQ/L (136-145)
== END ==
LOC: M WUC 10:45
PROVIDERS: ATTEND Family Medicine
DX: E11.9 Type 2 diabetes mellitus without complications (principal)

== ENCOUNTER → 2019-07-18 | Outpatient (CLI) | payer MEDICARE, MEDICAID ==
[~2019-07-18] MED LIST changes: -DULO1CAP3 PO; +DULO1CAP6 PO; +METF-791 PO; -METF500T4 PO
[2019-07-18 12:58] LABS: BLOOD UREA NITROGEN 12 MG/DL (7-18); CALCIUM LEVEL 9.3 MG/DL (8.5-10.1); CARBON DIOXIDE LEVEL 29 MEQ/L (21-32); CHLORIDE LEVEL 100 MEQ/L (98-107); CREATININE FOR GFR 1.09 MG/DL (0.70-1.30); GLOMERULAR FILTRATION RATE > 60.0 (>60); GLUCOSE, FASTING 135 MG/DL (70-100); POTASSIUM SERUM 3.7 MEQ/L (3.5-5.1); SODIUM LEVEL 139 MEQ/L (136-145)
[2019-07-18 14:04] LABS: HEMOGLOBIN A1c 8.2 %
== END ==
LOC: M WUC 10:17
PROVIDERS: ATTEND Family Medicine
DX: E11.9 Type 2 diabetes mellitus without complications (principal)

== ENCOUNTER → 2019-10-17 | Outpatient (CLI) | payer MEDICARE, MEDICAID ==
[2019-10-17 14:18] LABS: HEMOGLOBIN A1c 7.4 %
[2019-10-17 14:24] LABS: BLOOD UREA NITROGEN 15 MG/DL (7-18); CALCIUM LEVEL 9.5 MG/DL (8.5-10.1); CARBON DIOXIDE LEVEL 33 MEQ/L (21-32); CHLORIDE LEVEL 97 MEQ/L (98-107); CREATININE FOR GFR 1.15 MG/DL (0.70-1.30); GLOMERULAR FILTRATION RATE > 60.0 (>60); GLUCOSE, FASTING 128 MG/DL (70-100); POTASSIUM SERUM 2.9 MEQ/L (3.5-5.1); SODIUM LEVEL 136 MEQ/L (136-145)
== END ==
LOC: M WUC 10:19
PROVIDERS: ATTEND Family Medicine
DX: E11.9 Type 2 diabetes mellitus without complications (principal)

== ENCOUNTER → 2020-04-10 | Outpatient (REF) | payer MEDICARE, MEDICAID ==
[~2020-04-10] MED LIST changes: -METF-791 PO; +METF-838 PO; +PANT40TA29 PO; -PANT40TA3 PO
[2020-06-07 23:03] LABS: ALBUMIN 3.5 GM/DL (3.2-5.2); ALT/SGPT 39 U/L (12-78); BILIRUBIN,TOTAL 0.4 MG/DL (0.2-1.0); BLOOD UREA NITROGEN 18 MG/DL (7-18); CALCIUM LEVEL 9.1 MG/DL (8.5-10.1); CARBON DIOXIDE LEVEL 29 MEQ/L (21-32); CHLORIDE LEVEL 103 MEQ/L (98-107); CHOLESTEROL LEVEL 174 MG/DL (<200); CHOLESTEROL RISK RATIO 5.437 (<5); GLOMERULAR FILTRATION RATE > 60.0 (>60); GLUCOSE, FASTING 113 MG/DL (70-100); HDL CHOLESTEROL 32 MG/DL (>40); HEMOGLOBIN A1c 6.9 %; LDL CHOLESTEROL 115 MG/DL (<100); MAGNESIUM LEVEL 2.1 MG/DL (1.8-2.4); NON-HDL-C 142 MG/DL; POTASSIUM SERUM 4.4 MEQ/L (3.5-5.1); SODIUM LEVEL 138 MEQ/L (136-145); TOTAL PROTEIN 8.1 GM/DL (6.4-8.2); TRIGLYCERIDES LEVEL 135 MG/DL (<150)
== END ==
LOC: M WUC 08:40
PROVIDERS: ATTEND Family Medicine
DX: E87.6 Hypokalemia (principal); E11.9 Type 2 diabetes mellitus without complications; E78.2 Mixed hyperlipidemia

== ENCOUNTER → 2020-11-11 | Outpatient (CLI) | payer MEDICARE, MEDICAID ==
[~2020-11-11] MED LIST changes: -LISI-538 PO; +LISI20TA33 PO
[2020-11-11 12:24] LABS: ALBUMIN 3.5 GM/DL (3.2-5.2); ALT/SGPT 36 U/L (12-78); BILIRUBIN,TOTAL 0.4 MG/DL (0.2-1.0); BLOOD UREA NITROGEN 12 MG/DL (7-18); CALCIUM LEVEL 9.3 MG/DL (8.5-10.1); CARBON DIOXIDE LEVEL 29 MEQ/L (21-32); CHLORIDE LEVEL 106 MEQ/L (98-107); CHOLESTEROL LEVEL 169 MG/DL (<200); CHOLESTEROL RISK RATIO 5.281 (<5); CREATININE FOR GFR 1.07 MG/DL (0.70-1.30); GLOMERULAR FILTRATION RATE > 60.0 (>60); GLUCOSE, FASTING 113 MG/DL (70-100); HDL CHOLESTEROL 32 MG/DL (>40); LDL CHOLESTEROL 114 MG/DL (<100); MAGNESIUM LEVEL 2.1 MG/DL (1.8-2.4); NON-HDL-C 137 MG/DL; POTASSIUM SERUM 4.6 MEQ/L (3.5-5.1); SODIUM LEVEL 140 MEQ/L (136-145); TOTAL PROTEIN 7.6 GM/DL (6.4-8.2); TRIGLYCERIDES LEVEL 114 MG/DL (<150)
[2020-11-11 12:29] LABS: MALB URINE SIEMENS 44.3 MG/L; MAU/CREAT RATIO 29.7 MCG/MG (0.0-30.0)
[2020-11-11 15:21] LABS: HEMOGLOBIN A1c 6.3 %
== END ==
LOC: M WUC 08:33
PROVIDERS: ATTEND Family Medicine
DX: E87.6 Hypokalemia (principal); E11.9 Type 2 diabetes mellitus without complications; E78.2 Mixed hyperlipidemia

== ENCOUNTER → 2021-05-10 | Outpatient (CLI) | payer MEDICARE, MEDICAID ==
[2021-05-10 11:48] LABS: BLOOD UREA NITROGEN 13 MG/DL (7-18); CALCIUM LEVEL 9.1 MG/DL (8.5-10.1); CARBON DIOXIDE LEVEL 25 MEQ/L (21-32); CHLORIDE LEVEL 103 MEQ/L (98-107); CREATININE FOR GFR 1.12 MG/DL (0.70-1.30); GLOMERULAR FILTRATION RATE > 60.0 (>60); GLUCOSE, FASTING 86 MG/DL (70-100); POTASSIUM SERUM 4.6 MEQ/L (3.5-5.1); SODIUM LEVEL 140 MEQ/L (136-145)
== END ==
LOC: M WUC 08:26
PROVIDERS: ATTEND Family Medicine
DX: E11.9 Type 2 diabetes mellitus without complications (principal)

== ENCOUNTER → 2022-05-13 | Outpatient (CLI) | payer MEDICARE, MEDICAID ==
[~2022-05-13] MED LIST changes: -FLUC200T2 PO; +FLUC200T4 PO
[2022-05-13 11:08] LABS: CREATININE, URINE 79.5 MG/DL; MALB URINE SIEMENS 81.6 MG/L; MAU/CREAT RATIO 102.6 MCG/MG (0.0-30.0)
[2022-05-13 11:13] LABS: ALBUMIN 3.7 GM/DL (3.2-5.2); ALT/SGPT 36 U/L (12-78); BILIRUBIN,TOTAL 0.4 MG/DL (0.2-1.0); BLOOD UREA NITROGEN 20 MG/DL (7-18); CALCIUM LEVEL 8.9 MG/DL (8.5-10.1); CARBON DIOXIDE LEVEL 28 MEQ/L (21-32); CHLORIDE LEVEL 103 MEQ/L (98-107); CHOLESTEROL LEVEL 164 MG/DL (<200); CHOLESTEROL RISK RATIO 4.315 (<5); CREATININE FOR GFR 1.01 MG/DL (0.70-1.30); GLOMERULAR FILTRATION RATE > 60.0 (>60); GLUCOSE, FASTING 89 MG/DL (70-100); HDL CHOLESTEROL 38 MG/DL (>40); LDL CHOLESTEROL 105 MG/DL (<100); NON-HDL-C 126 MG/DL; POTASSIUM SERUM 4.1 MEQ/L (3.5-5.1); SODIUM LEVEL 138 MEQ/L (136-145); TOTAL PROTEIN 7.6 GM/DL (6.4-8.2); TRIGLYCERIDES LEVEL 107 MG/DL (<150)
== END ==
LOC: M WUC 08:36
PROVIDERS: ATTEND Family Medicine
DX: E78.2 Mixed hyperlipidemia (principal); I10 Essential (primary) hypertension; E11.9 Type 2 diabetes mellitus without complications

== ENCOUNTER → 2022-11-17 | Outpatient (CLI) | payer MEDICARE, MEDICAID ==
[2022-11-17 10:38] LABS: CREATININE, URINE 144.4 MG/DL
[2022-11-17 10:39] LABS: MAU/CREAT RATIO 18.6 MCG/MG (0.0-30.0)
[2022-11-17 10:41] LABS: BLOOD UREA NITROGEN 13 MG/DL (9-23); CALCIUM LEVEL 8.9 MG/DL (8.5-10.1); CARBON DIOXIDE LEVEL 29 MMOL/L (20-31); CHLORIDE LEVEL 103 MMOL/L (98-107); CREATININE FOR GFR 0.94 MG/DL (0.70-1.30); GLOMERULAR FILTRATION RATE > 60.0 (>60); GLUCOSE, FASTING 104 MG/DL (60-100); POTASSIUM SERUM 4.5 MMOL/L (3.5-5.1); SODIUM LEVEL 140 MMOL/L (136-145)
== END ==
LOC: M WUC 08:38
PROVIDERS: ATTEND Family Medicine
DX: E11.29 Type 2 diabetes mellitus with other diabetic kidney complication (principal); R80.9 Proteinuria, unspecified

== ENCOUNTER → 2023-02-14 | Outpatient (CLI) | payer MEDICARE, MEDICAID ==
[2023-02-14 13:20] LABS: HEMOGLOBIN A1c 5.8 % (4.0-6.0)
[2023-02-14 13:43] LABS: ALBUMIN 3.6 G/DL (3.2-5.2); ALKALINE PHOSPHATASE 75 U/L (46-116); ALT/SGPT 35 U/L (7.0-40); AST/SGOT 19 U/L (<34); BILIRUBIN,TOTAL 0.4 MG/DL (0.3-1.2); BLOOD UREA NITROGEN 12 MG/DL (9-23); CALCIUM LEVEL 8.8 MG/DL (8.5-10.1); CARBON DIOXIDE LEVEL 26 MMOL/L (20-31); CHLORIDE LEVEL 107 MMOL/L (98-107); CHOLESTEROL LEVEL 146 MG/DL (<200); CHOLESTEROL RISK RATIO 4.47 (<5); CREATININE FOR GFR 1.08 MG/DL (0.70-1.30); FREE T4 0.87 NG/DL (0.89-1.76); GLOMERULAR FILTRATION RATE > 60.0 (>60); GLUCOSE, FASTING 93 MG/DL (60-100); HDL CHOLESTEROL 32.6 MG/DL (>40); LDL CHOLESTEROL 91.4 MG/DL (<100); NON-HDL-C 113.4 MG/DL; POTASSIUM SERUM 4.5 MMOL/L (3.5-5.1); SODIUM LEVEL 139 MMOL/L (136-145); THYROID STIMULATING HORMONE 1.284 uIU/ML (0.55-4.78); TOTAL PROTEIN 6.8 G/DL (5.7-8.2); TRIGLYCERIDES LEVEL 110 MG/DL (<150)
== END ==
LOC: M WUC 09:06
PROVIDERS: ATTEND Family Medicine
DX: E11.9 Type 2 diabetes mellitus without complications (principal); E78.2 Mixed hyperlipidemia

== ENCOUNTER → 2023-08-04 | Outpatient (REF) | payer MEDICARE, MEDICAID ==
[2023-08-04 12:11] LABS: HEMOGLOBIN A1c 5.2 % (4.0-6.0)
[2023-08-04 12:32] LABS: BLOOD UREA NITROGEN 10 MG/DL (9-23); CARBON DIOXIDE LEVEL 30 MMOL/L (20-31); CHLORIDE LEVEL 102 MMOL/L (98-107); CREATININE FOR GFR 0.91 MG/DL (0.70-1.30); GLOMERULAR FILTRATION RATE > 60.0 (>60); GLUCOSE, FASTING 75 MG/DL (60-100); SODIUM LEVEL 140 MMOL/L (136-145)
[2023-08-04 12:36] LABS: FREE T4 0.97 NG/DL (0.89-1.76); MAU/CREAT RATIO 27.4 MCG/MG (0.0-30.0)
[2023-08-04 12:37] LABS: THYROID STIMULATING HORMONE 2.627 uIU/ML (0.55-4.78)
== END ==
LOC: M WUC 09:37
PROVIDERS: ATTEND Family Medicine
DX: E78.2 Mixed hyperlipidemia (principal); E11.9 Type 2 diabetes mellitus without complications; R80.9 Proteinuria, unspecified

== ENCOUNTER → 2024-02-05 | Outpatient (CLI) | payer MEDICARE, MEDICAID ==
[2024-02-05 11:56] LABS: HEMOGLOBIN A1c 5.2 % (4.0-6.0)
[2024-02-05 12:14] LABS: ALBUMIN 3.2 G/DL (3.2-5.2); ALKALINE PHOSPHATASE 86 U/L (46-116); ALT/SGPT 29 U/L (7.0-40); AST/SGOT 15 U/L (<34); BILIRUBIN,TOTAL 0.4 MG/DL (0.3-1.2); BLOOD UREA NITROGEN 14 MG/DL (9-23); CALCIUM LEVEL 9.5 MG/DL (8.5-10.1); CARBON DIOXIDE LEVEL 29 MMOL/L (20-31); CHLORIDE LEVEL 103 MMOL/L (98-107); CHOLESTEROL LEVEL 139 MG/DL (<200); CHOLESTEROL RISK RATIO 3.96 (<5); CREATININE FOR GFR 1.01 MG/DL (0.70-1.30); GLOMERULAR FILTRATION RATE > 60.0 (>60); GLUCOSE, FASTING 88 MG/DL (60-100); HDL CHOLESTEROL 35.1 MG/DL (>40); LDL CHOLESTEROL 88.5 MG/DL (<100); NON-HDL-C 103.9 MG/DL; POTASSIUM SERUM 4.9 MMOL/L (3.5-5.1); SODIUM LEVEL 139 MMOL/L (136-145); TOTAL PROTEIN 7.2 G/DL (5.7-8.2); TRIGLYCERIDES LEVEL 77 MG/DL (<150)
== END ==
LOC: M WUC 08:20
PROVIDERS: ATTEND Family Medicine
DX: E78.2 Mixed hyperlipidemia (principal); E11.9 Type 2 diabetes mellitus without complications; I10 Essential (primary) hypertension

== ENCOUNTER → 2024-08-05 | Outpatient (CLI) | payer MEDICARE, MEDICAID ==
[~2024-08-05] MED LIST changes: +FLUC-1 PO; -FLUC200T4 PO; +GLIP10TA15 PO; -GLIP10TA6 PO
[2024-08-05 12:52] LABS: CREATININE, URINE 72.4 MG/DL; MAU/CREAT RATIO 15.1 MCG/MG (0.0-30.0)
[2024-08-05 12:56] LABS: ALBUMIN 3.3 G/DL (3.2-5.2); ALKALINE PHOSPHATASE 105 U/L (40-129); ALT/SGPT 33 U/L (7.0-40); AST/SGOT 20 U/L (<34); BILIRUBIN,TOTAL 0.5 MG/DL (0.3-1.2); BLOOD UREA NITROGEN 14 MG/DL (9-23); CARBON DIOXIDE LEVEL 29 MMOL/L (20-31); CHLORIDE LEVEL 103 MMOL/L (98-107); CHOLESTEROL LEVEL 161 MG/DL (<200); CREATININE FOR GFR 1.08 MG/DL (0.70-1.30); GLOMERULAR FILTRATION RATE > 60.0 (>60); GLUCOSE, FASTING 121 MG/DL (60-100); HDL CHOLESTEROL 38.3 MG/DL (>40); LDL CHOLESTEROL 99.1 MG/DL (<100); NON-HDL-C 122.7 MG/DL; POTASSIUM SERUM 4.3 MMOL/L (3.5-5.1); SODIUM LEVEL 142 MMOL/L (136-145); TOTAL PROTEIN 7.7 G/DL (5.7-8.2); TRIGLYCERIDES LEVEL 118 MG/DL (<150)
[2024-08-05 13:02] LABS: HEMOGLOBIN A1c 5.3 % (4.0-6.0)
== END ==
LOC: M WUC 08:45
PROVIDERS: ATTEND Family Medicine
DX: E78.2 Mixed hyperlipidemia (principal); I10 Essential (primary) hypertension; E11.9 Type 2 diabetes mellitus without complications

== ENCOUNTER → 2024-10-15 | Outpatient (CLI) | payer MEDICARE, MEDICAID | LOC: M RAD 09:38 | PROVIDERS: ATTEND Family Medicine | DX: M79.89 Other specified soft tissue disorders (principal); I10 Essential (primary) hypertension ==

== ENCOUNTER 2024-12-23 19:21 | Emergency (ER) | payer MEDICARE, MEDICAID ==
[~2024-12-23] VITALS: Ht 190.5 cm; Wt 142.5 kg
[~2024-12-23 19:21] MED LIST changes: +GLIP-320 PO; -GLIP10TA18 PO
[2024-12-23] MEDS ORDERED: SEMA2PEN (20:14)
[2024-12-23] MEDS ORDERED: HYDR-3490 PO (20:14)
[2024-12-23 22:58] LABS: BASO # 0.2 10^3/uL (0.0-0.2); EOS # 0.3 10^3/uL (0.0-0.5); EOS % 2.2 % (0.0-3.0); HEMATOCRIT 43.3 % (42.0-52.0); HEMOGLOBIN 14.5 g/dl (13.5-17.5); LYMPH # 4.4 10^3/uL (1.5-5.0); LYMPH % 30.4 % (24.0-44.0); MEAN CORPUSCULAR HEMOGLOBIN 30.8 pg (27.0-33.0); MEAN CORPUSCULAR HGB CONC 33.5 g/dl (32.0-36.5); MEAN CORPUSCULAR VOLUME 91.9 fl (80.0-96.0); MONO # 1.2 10^3/uL (0.0-0.8); MONO % 8.6 % (2.0-8.0); NEUTROPHILS # 8.3 10^3/uL (1.5-8.5); NEUTROPHILS % 57.2 % (36.0-66.0); PLATELET COUNT, AUTOMATED 440 10^3/uL (150-450); RED BLOOD COUNT 4.71 10^6/uL (4.30-6.10); WHITE BLOOD COUNT 14.5 10^3/uL (4.0-10.0)
[2024-12-23 23:27] LABS: CK-MB VALUE MASS < 1.0 NG/ML (<3.6)
[2024-12-23 23:28] LABS: BLOOD UREA NITROGEN 26 MG/DL (9-23); CALCIUM LEVEL 9.3 MG/DL (8.5-10.1); CARBON DIOXIDE LEVEL 24 MMOL/L (20-31); CHLORIDE LEVEL 101 MMOL/L (98-107); CPK CREATINE PHOSPHOKINASE 22 U/L (46-171); CREATININE FOR GFR 1.15 MG/DL (0.70-1.30); GLUCOSE, FASTING 113 MG/DL (60-100); MB/CK RELATIVE INDEX 4.54 (< OR =4); POTASSIUM SERUM 4.1 MMOL/L (3.5-5.1); SODIUM LEVEL 136 MMOL/L (136-145)
[2024-12-24] MEDS: PERCOCET 5MG/325MG TAB PO ONE (00:45)
[2024-12-24] MEDS: ACETAMINOPHEN 500 MG TAB PO ONE (01:05)
[2024-12-24] MEDS ORDERED: ACET-683 PO (02:04)
[2024-12-24] MEDS ORDERED: JARD1TAB3 PO (02:04)
[2024-12-24] MEDS ORDERED: HOME MED LIST COMPLETE! XX SCH (02:05)
[2024-12-24 03:32] VITALS: BP 110/65
[2024-12-24] MEDS: ATORVASTATIN 10 MG TAB PO SCH (03:33)
[2024-12-24 04:09] LABS: KETONE, URINE AUTO RFX NEGATIVE (NEGATIVE); MUCUS, URINE RFX SMALL (NEGATIVE); NITRITE, URINE AUTO RFX NEGATIVE (NEGATIVE); RBC, URINE AUTO RFX 6 /HPF (0-3); SQUAM EPITHELIAL CELL UR AURFX 0 /HPF (0-6)
[2024-12-24 04:10] LABS: LEUKOCYTE ESTERASE UR AUTO RFX 1+ (NEGATIVE); WBC, URINE AUTO RFX 36 /HPF (0-3)
[2024-12-24 07:45] LABS: C REACTIVE PROTEIN QUANTITATIV 0.77 MG/DL (<1.0)
[2024-12-24 07:47] LABS: ERYTHROCYTE SEDIMENTATION RATE 76 mm/hr (0-15)
[2024-12-24] MEDS: DULoxetine 30MG CAPSULE PO SCH (09:24)
[2024-12-24] MEDS ORDERED: ACETAMINOPHEN 500 MG TAB PO PRN (12:00)
[2024-12-25 09:44] LABS: HEMATOCRIT 42.3 % (42.0-52.0); HEMOGLOBIN 13.8 g/dl (13.5-17.5); MEAN CORPUSCULAR HEMOGLOBIN 30.7 pg (27.0-33.0); MEAN CORPUSCULAR HGB CONC 32.6 g/dl (32.0-36.5); PLATELET COUNT, AUTOMATED 446 10^3/uL (150-450); WHITE BLOOD COUNT 13.6 10^3/uL (4.0-10.0)
[2024-12-25 10:02] LABS: CREATININE FOR GFR 1.17 MG/DL (0.70-1.30); GLOMERULAR FILTRATION RATE 78.3 (>60); POTASSIUM SERUM 4.3 MMOL/L (3.5-5.1)
[2024-12-25 15:17] VITALS: BP 110/55; TEMP 99.3; O2SAT 96
== END 2024-12-25 15:39 | disposition home or self-care (01) ==
LOC: M ED 19:21
DX: R26.81 Unsteadiness on feet (principal); M48.061 Spinal stenosis, lumbar region without neurogenic claudication; M21.379 Foot drop, unspecified foot; E11.9 Type 2 diabetes mellitus without complications; M48.04 Spinal stenosis, thoracic region; I10 Essential (primary) hypertension; K57.92 Diverticulitis of intestine, part unspecified, without perforation or abscess without bleeding; M54.50 Low back pain, unspecified; E66.9 Obesity, unspecified; Z79.899 Other long term (current) drug therapy; Z88.0 Allergy status to penicillin; M47.816 Spondylosis without myelopathy or radiculopathy, lumbar region; M47.814 Spondylosis without myelopathy or radiculopathy, thoracic region

== ENCOUNTER → 2024-12-26 | Outpatient (CLI) | payer MEDICARE, MEDICAID ==
[~2024-12-26] MED LIST changes: +ACET-683 PO; +HYDR-3490 PO; +JARD1TAB3 PO; +SEMA2PEN
== END ==
LOC: M RAD 14:02
PROVIDERS: ATTEND Internal Medicine
DX: M47.816 Spondylosis without myelopathy or radiculopathy, lumbar region (principal); M47.814 Spondylosis without myelopathy or radiculopathy, thoracic region; R26.81 Unsteadiness on feet; M48.061 Spinal stenosis, lumbar region without neurogenic claudication; M21.379 Foot drop, unspecified foot; E11.9 Type 2 diabetes mellitus without complications; M48.04 Spinal stenosis, thoracic region; K57.92 Diverticulitis of intestine, part unspecified, without perforation or abscess without bleeding; M54.50 Low back pain, unspecified; E66.9 Obesity, unspecified; Z79.899 Other long term (current) drug therapy; Z88.0 Allergy status to penicillin

== ENCOUNTER → 2024-12-26 | Outpatient (REF) | payer MEDICARE, MEDICAID ==
[2024-12-26 13:28] LABS: HEMATOCRIT 41.7 % (42.0-52.0); HEMOGLOBIN 13.6 g/dl (13.5-17.5); MEAN CORPUSCULAR HEMOGLOBIN 30.6 pg (27.0-33.0); MEAN CORPUSCULAR HGB CONC 32.6 g/dl (32.0-36.5); MEAN CORPUSCULAR VOLUME 93.7 fl (80.0-96.0); PLATELET COUNT, AUTOMATED 442 10^3/uL (150-450); RED BLOOD COUNT 4.45 10^6/uL (4.30-6.10); WHITE BLOOD COUNT 13.3 10^3/uL (4.0-10.0)
[2024-12-26 13:53] LABS: HEMOGLOBIN A1c 5.8 % (4.0-6.0)
[2024-12-26 13:54] LABS: ALBUMIN 3.2 G/DL (3.2-5.2); BILIRUBIN,TOTAL 0.4 MG/DL (0.3-1.2); CALCIUM LEVEL 9.2 MG/DL (8.5-10.1); CHOLESTEROL RISK RATIO 3.98 (<5); CREATININE FOR GFR 1.1 MG/DL (0.70-1.30); GLOMERULAR FILTRATION RATE 84.4 (>60); HDL CHOLESTEROL 29.6 MG/DL (>40); LDL CHOLESTEROL 52.2 MG/DL (<100); NON-HDL-C 88.4 MG/DL; TOTAL PROTEIN 6.9 G/DL (5.7-8.2)
== END ==
LOC: SKLAB2 12:43
PROVIDERS: ATTEND Internal Medicine
DX: E11.9 Type 2 diabetes mellitus without complications (principal)

== ENCOUNTER → 2025-01-08 | Outpatient (CLI) | payer MEDICARE, MEDICAID ==
[~2025-01-08] MED LIST changes: +PROHANCE 279.3MG/ML 15ML VIAL As Ordered ONE; +PROHANCE 279.3MG/ML 5ML VIAL As Ordered ONE
== END ==
LOC: M RAD 07:52
PROVIDERS: ATTEND Internal Medicine
DX: M54.14 Radiculopathy, thoracic region (principal)
CPT/HCPCS: 72157; A9576

== ENCOUNTER 2025-03-15 12:53 | Emergency (ER) | payer MEDICARE, MEDICAID ==
[~2025-03-15] VITALS: Ht 190.5 cm; Wt 139.6 kg
[~2025-03-15 12:53] MED LIST changes: -PROHANCE 279.3MG/ML 15ML VIAL As Ordered ONE; -PROHANCE 279.3MG/ML 5ML VIAL As Ordered ONE
[2025-03-15 13:36] LABS: BASO # 0.1 10^3/uL (0.0-0.2); BASO % 1.1 % (0.0-1.0); EOS # 0.6 10^3/uL (0.0-0.5); EOS % 5.3 % (0.0-3.0); LYMPH # 2.7 10^3/uL (1.5-5.0); LYMPH % 25.2 % (24.0-44.0); MONO # 1.1 10^3/uL (0.0-0.8); MONO % 10.3 % (2.0-8.0); NEUTROPHILS # 6.2 10^3/uL (1.5-8.5); NEUTROPHILS % 57.8 % (36.0-66.0); PLATELET COUNT, AUTOMATED 449 10^3/uL (150-450)
[2025-03-15 13:44] LABS: CALCIUM LEVEL 9.4 MG/DL (8.5-10.1); CARBON DIOXIDE LEVEL 29.0 MMOL/L (20-31); CHLORIDE LEVEL 104.0 MMOL/L (98-107); CREATININE FOR GFR 1.17 MG/DL (0.70-1.30); GLOMERULAR FILTRATION RATE 78.3 (>60); POTASSIUM SERUM 4.2 MMOL/L (3.5-5.1); SODIUM LEVEL 144.0 MMOL/L (136-145)
[2025-03-15] MEDS ORDERED: META0.52 PO (14:49)
[2025-03-15] MEDS ORDERED: ANUS2.5C2 TOP (14:53)
[2025-03-15] MEDS ORDERED: EQ H1PAD TOP (14:55)
[2025-03-15 15:00] VITALS: BP 124/73; TEMP 97.5; O2SAT 100
== END 2025-03-15 15:29 | disposition home or self-care (01) ==
LOC: EDBD 12:53 → M ED 12:53
DX: K64.8 Other hemorrhoids (principal); E11.9 Type 2 diabetes mellitus without complications; I10 Essential (primary) hypertension; K57.92 Diverticulitis of intestine, part unspecified, without perforation or abscess without bleeding; M54.9 Dorsalgia, unspecified; Z79.899 Other long term (current) drug therapy; Z88.0 Allergy status to penicillin

== ENCOUNTER → 2025-06-03 | Outpatient (REF) | payer MEDICARE, MEDICAID ==
[~2025-06-03] MED LIST changes: +ANUS2.5C2 TOP; +EQ H1PAD TOP; +META0.52 PO
[2025-06-03 13:19] LABS: PLATELET COUNT, AUTOMATED 487 10^3/uL (150-450)
[2025-06-03 14:42] LABS: ALT/SGPT 22.0 U/L (7.0-40); AST/SGOT 20.0 U/L (<34); CALCIUM LEVEL 9.4 MG/DL (8.5-10.1); CARBON DIOXIDE LEVEL 30.0 MMOL/L (20-31); CHLORIDE LEVEL 104.0 MMOL/L (98-107); CHOLESTEROL LEVEL 160.0 MG/DL (<200); CHOLESTEROL RISK RATIO 3.87 (<5); CREATININE FOR GFR 1.14 MG/DL (0.70-1.30); GLOMERULAR FILTRATION RATE 80.8 (>60); LDL CHOLESTEROL 104.5 MG/DL (<100); NON-HDL-C 118.7 MG/DL; POTASSIUM SERUM 4.7 MMOL/L (3.5-5.1); SODIUM LEVEL 142.0 MMOL/L (136-145); TRIGLYCERIDES LEVEL 71.0 MG/DL (<150)
[2025-06-03 14:46] LABS: FREE T4 1.04 NG/DL (0.89-1.76)
[2025-06-03 16:19] LABS: ESTIMATED AVERAGE GLUCOSE 126.0 MG/DL (60-110)
== END ==
LOC: M SFHCADAM 10:10
PROVIDERS: ATTEND Family Medicine
DX: M51.34 Other intervertebral disc degeneration, thoracic region (principal); E11.9 Type 2 diabetes mellitus without complications; E78.2 Mixed hyperlipidemia; E66.01 Morbid (severe) obesity due to excess calories